=== PATIENT | female | born 1990 | race Caucasian/White ===

== ENCOUNTER 2021-02-26 18:52 | Inpatient (IN) | payer OTHER, SELFPAY ==
[2021-02-26] VITALS (46 sets, daily range): BP systolic 40–166; BP diastolic 25–82; PULSE 66–152; RESP 18–20; TEMP 35.9–36.3; O2SAT 92–100; BMI 33.0
--- NOTE | ~2021-02-26 | US_ITS ---
EXAMINATION: US OB follow up EXAM DATE: 02/26/2021 20:26 INDICATION: No care/ dates,efw,check placenta. 3rd trimester. TECHNIQUE: Pelvic obstetrical transabdominal sonogram was performed by a technologist. There are mu ltiple grayscale and Doppler images available for interpretation. There are no earlier studies of is gestation for comparison. FINDINGS: There is a single fetus identified in vertex presentation with a heart rate of 142 beats pe r minute. The placenta is located in the anterior position. There is no sonographic evidence of retr oplacental hemorrhage identified. The amniotic fluid index is 12.6 centimeters, which is normal. BIOMETRIC DATA: Technologist states that the head circumference measurement was difficult due to low vertex position. Biparietal diameter (BPD): 8.9 cm ----------------> 36 weeks 0 days. Head circumference (HC): 33.8 cm ----------------> 38 weeks 5 days. Abdominal circumference (AC): 36.3 cm ----------> 40 weeks 1 day. Femur length (FL): 7.0 cm --------------------------> 35 weeks 5 days. These measurements are discordant. FL/HC ratio 20.62 The 5th -- 95th percentile range is 20.87-22.67. HC/AC ratio is 0.93 (The 5th -- 95th percentile range is 0.90-1.05. Estimated weight is 3529 g +/- 529 g. This is the 44th percentile when the currently reported clinical gestation age 39 weeks 6 days, clinical estimated date of delivery (STEPHANIE-OPE) 02/27 is used. F etal estimated gestational age based on measurements from this exam is 37 weeks 5 days, with an estim ated date of delivery (STEPHANIE-AUA) 03/14. IMPRESSION: 1. Single fetus in vertex presentation with heart rate 142 beats per minute. 2. Estimated weight of 3529 grams, 44th percentile using the currently reported clinical gesta tion age of 39 weeks 6 days, STEPHANIE(OPE) 02/27. Age by ultrasound 37 weeks 5 days. 3. Difficulty obtaining head measurements, with low FL/AC ratio. Reviewed, dictated and finalized at location A. IMPRESSION: 1. Single fetus in vertex presentation with heart rate 142 beats per minute. 2. Estimated weight of 3529 grams, 44th percentile using the currently r eported clinical gestation age of 39 weeks 6 days, STEPHANIE(OPE) 02/27. Age by ultras ound 37 weeks 5 days. 3. Difficulty obtaining head measurements, with low FL/AC ratio.
[2021-02-26] MEDS: LACTATED RINGERS 1,000 ML 125 ML IV CONT (19:20)
--- NOTE | 2021-02-26 19:36 | PC.NURSE ---
193-Dr.Dalla Guillory called in for update on patient. Informed pt states she has had Dr.Dalla Guillory and for delivery of all of her other children.Pt states she does not know her LMP. Pt last ate at 1530. Order received to call [facility] to verify US from July. Dr. Riana Guillory is on his way in to evaluate pt.
--- NOTE | 2021-02-26 19:38 | PC.NURSE ---
1906-Dr.Dalla Guillory called, informed pt came is stating she is stan and is due 02-27-21 and is a with 3 prior c-sections. Pt states she has not had any pre-blanka care but was told in the ER at [facility] in July when she was there for a kidney infection that she was and due 02-27-21. SVE is 3/100% per Km DAI. Orders received to draw panel labs and get US for dates, EFW, and check placenta.
[2021-02-26 19:44] LABS: Basophils Absolute Auto 0.1 K/mm3 (0.0-0.1); Basophils Percent Auto 0.4 % (0.2-1.2); Eosinophils Absolute Auto 0.3 K/mm3 (0-0.3); Eosinophils Percent Auto 2.4 % (0-4.4); Hemoglobin 12.9 g/dL (12.0-15.0); Immature Granulocyte Absolute 0.11 K/mm3 (0.00-0.031); Immature Granulocyte Percent A 0.8 % (0-0.5); Lymphocytes Absolute Auto 2.11 K/mm3 (0.9-3.2); Lymphocytes Percent Auto 15.1 % (18.3-44.2); Mean Corpuscular HGB Conc 33.9 g/dl (32-36); Mean Corpuscular Hemoglobin 30.1 pg (26-34); Mean Corpuscular Volume 88.8 fl (80-100); Mean Platelet Volume 10.9 fl (7.4-10.4); Monocytes Absolute Auto 0.7 K/mm3 (0.1-0.6); Monocytes Percent Auto 4.7 % (2.6-8.5); Neutrophils Absolute Auto 10.7 K/mm3 (1.3-6.7); Neutrophils Percent Auto 76.6 % (45.5-73.1); Platelet Count Result 283 k/mm3 (150-375); Red Blood Count 4.28 M/mm3 (4.2-5.4); Red Cell Distribution Width 14.4 % (11.5-14.5); White Blood Count 13.9 K/mm3 (4.5-10.0)
--- NOTE | 2021-02-26 19:52 | PM.IMHP ---
H&P: HPI History of Present Illness Date/Time: 02/26/21 19:52 30-year-old 6 para 5 with 3 previous C-sections admitted with no care complaining of regular contractions. Her due date is based on an ultrasound which field sometime she believes in July which she has essentially had no care. She appears to be in active labor Chief Complaint: labor Review of Systems Review of Systems: All systems reviewed & are unremarkable except as noted in HPI and below PMFSH Social History Social History Smoking status: Current some day smoker Substance use: never Gender identity (if verbalized by the patient): Female Spiritual care concerns: No Meds Home Medications and Allergies Allergies Allergy/AdvReac Type Severity Reaction Status Date / Time No Known Allergies Allergy Unverified 11/05/15 12:38 Exam Const: General: no acute distress Eyes: General: appearance normal, both eyes and all related structures Neck: Neck: supple and no JVD Thyroid: thyroid normal Resp: Effort & Inspection: normal respiratory effort Auscultation: clear to auscultation bilaterally Cardio: Rate: regular rate Rhythm: regular rhythm GI: Inspection: non-distended GI Palp: Yes Soft to palpation, No Tenderness to palpation present (GI) and No Guarding due to palpation present (GI) Auscultation: normal bowel sounds : External Female Exam: normal external appearance Speculum Exam - Vagina: normal appearance of the vagina Speculum Exam - Cervix: Cervical os closed ( cervix 3cm by RN exam. FHTs were reassuring. Uterine contractions are re) Skin: General skin exam: no rashes or lesions noted Extrem: General: normal to inspection and no edema Psych: Mental Status: mental status grossly normal Affect: normal affect H&P: Results Labs Labs: Short CBC 02/26/21 Range/Units 19:25 WBC 13.9 H (4.5-10.0) K/mm3 Hgb 12.9 (12.0-15.0) g/dL Hct 38.0 (37.0-47.0) % Plt Count 283 (150-375) k/mm3 Assessment and Plan Additional Plan impression: Apparent term in active labor with 3 previous sections but no care and uncertain dates Plan: Ultrasound is ordered. We are attempting to get results from lids field to confirm dates. Most likely will proceed with section due to what appears to be active labor
--- NOTE | 2021-02-26 20:01 | WPDANESEPP ---
Anes - Eval Pre Procedure Procedure: Repeat c section Date/Time: 02/26/21 20:01 Surgeon: shyla Preop Diagnosis: previous c section Pre Op Diagnosis: CTX Patient Data Age: 30 Gender: F Height: 1.65 m Weight: 90.25 kg Allergies Allergy/AdvReac Type Severity Reaction Status Date / Time No Known Allergies Allergy Unverified 11/05/15 12:38 Laboratory Tests 02/26/21 02/26/21 02/26/21 19:25 19:25 19:25 WBC 13.9 K/mm3 H K/mm3 (4.5-10.0) RBC 4.28 M/mm3 M/mm3 (4.2-5.4) Hgb 12.9 g/dL g/dL (12.0-15.0) Hct 38.0 % % (37.0-47.0) MCV 88.8 fl fl (80-100) MCH 30.1 pg pg (26-34) MCHC 33.9 g/dl g/dl (32-36) RDW 14.4 % % (11.5-14.5) Plt Count 283 k/mm3 k/mm3 (150-375) MPV 10.9 fl H fl (7.4-10.4) Immature Gran % (Auto) 0.8 % H % (0-0.5) Neut % (Auto) 76.6 % H % (45.5-73.1) Lymph % (Auto) 15.1 % L % (18.3-44.2) [place] % (Auto) 4.7 % % (2.6-8.5) Eos % (Auto) 2.4 % % (0-4.4) Baso % (Auto) 0.4 % % (0.2-1.2) Lymph # (Auto) 2.11 K/mm3 K/mm3 (0.9-3.2) [place] # (Auto) 0.7 K/mm3 H K/mm3 (0.1-0.6) Eos # (Auto) 0.3 K/mm3 K/mm3 (0-0.3) Baso # (Auto) 0.1 K/mm3 K/mm3 (0.0-0.1) Abs Immat Gran (auto) 0.11 K/mm3 H K/mm3 (0.00-0.031) Absolute Neuts (auto) 10.7 K/mm3 H K/mm3 (1.3-6.7) Absolute Nucleated RBC 0.0 K/mm3 K/mm3 (0.0-0.012) Nucleated RBC % 0.0 % % (0.0-0.2) RPR Pending Hep Bs Antigen Pending HIV 1&2 Ab/P24 Ag 4thGn Rubella IgG Antibody Pending 02/26/21 19:25 WBC RBC Hgb Hct MCV MCH MCHC RDW Plt Count MPV Immature Gran % (Auto) Neut % (Auto) Lymph % (Auto) [place] % (Auto) Eos % (Auto) Baso % (Auto) Lymph # (Auto) [place] # (Auto) Eos # (Auto) Baso # (Auto) Abs Immat Gran (auto) Absolute Neuts (auto) Absolute Nucleated RBC Nucleated RBC % RPR Hep Bs Antigen HIV 1&2 Ab/P24 Ag 4thGn Pending Rubella IgG Antibody Patient hx anesthesia problems: none Family hx anesthesia problems: none [facility] Past Medical History Medical History (Updated 02/26/21 @ 20:02 by Spring Ren CRNA) Tobacco abuse Social History Social History Smoking status: Current some day smoker Substance use: never Gender identity (if verbalized by the patient): Female Spiritual care concerns: No Exam Day of Procedure 02/26/21 20:01
--- NOTE | 2021-02-26 20:05 | WPDOBADMIT ---
Obstetrics - Admit Note Admission Note: record reviewed. No pertinent additions to the history and/or any subsequent changes in the physical findings that are not consistent with the expected course of the were found. Additions to the history and/or subsequent changes in the physical findings follow. None. reviewed ultrasound from 08/08 20 the gave an EDC of 513 21 making her term. It did note that she had polysubstance abuse at that point with methamphetamines and amphetamines present. Pediatricians will be made aware
[2021-02-26 20:22] LABS: Amphetamine Screen Urine Negative (Negative); Barbiturate Screen Urine Negative (Negative); Benzodiazepines Screen Urine Negative (Negative); Cannabinoid Screen Urine Negative (Negative); Cocaine Screen Urine Negative (Negative); Methadone Screen Urine Negative (Negative); Opiate Screen Urine Negative (Negative); Phencyclidine Screen Urine Negative (Negative)
[2021-02-26 20:32] LABS: HIV 1/2 Ab P24 Ag Result Negative (Negative)
[2021-02-26] MEDS: KETOROLAC 30 MG/ML VIAL (*BKC) IV PUSH (20:50)
--- NOTE | 2021-02-26 20:54 | WPDANESEFPP ---
Anes - Eval Final PreProcedure Day of Procedure 02/26/21 20:54 Patient weight: overweight Heart: regular rate and rhythm Lungs: clear to auscultation Airway: Mallampati scale class II Neurological: alert and oriented ASA classification: III Emergent: no Anesthetic plan: proceed Anesthesia type and monitoring: regional spinal and standard monitoring Other findings: minimal care Informed Consent: The patient's anesthetic plan and its attendant risks and benefits were discussed with the patient/family by FENG Ren.. Questions were solicited and answers provided to the satisfaction of the patient by me in the OR.
[2021-02-26 21:04] LABS: Hepatitis B Surface Antigen Negative (Negative)
--- NOTE | 2021-02-26 21:12 | P.OP_ITS ---
Procedure Note - Detailed Date of procedure: 02/26/21 Pre-op diagnosis: CTX Surgeon: Valdemar Max MD postop diagnosis: Term in active labor with previous section but no care Procedure: Repeat low-transverse section Anesthesia: l spinal Tube EBL 325 Findings: Female infant 8 lb 0 oz Apgars of 8 and 9 at 1 and 5 minutes respectively. Lower uterine segment was essentially see-through. Normal- appearing ovaries and tubes were noted Complications: None Description of procedure. : The patient was admitted in active labor through the ER. She had 3 previous sections and investigative work noted 1st trimester ultrasound giving her due date of 02/27 21 putting her at term. Contractions were regular. After obtaining informed consent she was taken back prepped draped placed in the supine position. Under excellent spinal anesthetic the abdomen was entered in Pfannenstiel fashion progressive layers to fascia. Fascia was entered none upward outward fashion. The parietal peritoneum elevated Cortney clamps and the probe and was brought superiorly and inferiorly dome of the bladder. A bladder blade was placed and a bladder flap formed. The lower uterine segment was noted to be very thin and see-through. A low- transverse incision made the head delivered in the JOSH position. Anterior posterior shoulder delivered spontaneously. Cord clamped x2 and cut infant passed off the table given Apgars of 8 [id number]. Cord blood was d rawn and placenta delivered intact manually. The uterus was inspected and after assuring no debris remained in the uterus uterus was closed with continuous running locking 0 Vicryl from lateral edge to lateral edge. This was followed by 2nd imbricating running locking 0 Vicryl from lateral edge to lateral edge. Ovaries and tubes appeared within normal limits and the incision appeared intact on the uterus. Uterus returned the abdomen irrigation was undertaken until clear and the uterine segment was noted to be hemostatic. The laps removed and accounted for in the fascia closed with continuous running 0 Vicryl from lateral edge to midline bilaterally. Irrigation subcutaneous layer and the skin closed with 4 Monocryl and glue blood loss by Kube EBL was 325cc. All sponge, needle, instrument counts were correct. There were no immediate complications noted
[2021-02-26] MEDS: OXYTOCIN 30 UNITS/NS 500 ML 30 UNITS/500 ML BAG 125 UNITS IV CONT (23:38)
[2021-02-27] VITALS (7 sets, daily range): BP systolic 104–127; BP diastolic 37–75; PULSE 76–85; RESP 14–18; TEMP 36.2–37.2; O2SAT 93–100
--- NOTE | 2021-02-27 00:05 | OBPPTRN ---
Patient transferred to post room #291 via stretcher with infant in crib. Support person present. Oriented to unit, room, information board, rooming in, admission packet and security measures. Patient verbalizes understanding.
[2021-02-27] MEDS: diphenhydrAMINE HCl INJ 50 MG/ML VIAL 25 MG IV PUSH (00:38)
[2021-02-27 06:40] LABS: Basophils Percent Auto 0.2 % (0.2-1.2); Eosinophils Absolute Auto 0.2 K/mm3 (0-0.3); Eosinophils Percent Auto 1.8 % (0-4.4); Hematocrit 33.4 % (37.0-47.0); Hemoglobin 11.1 g/dL (12.0-15.0); Immature Granulocyte Absolute 0.07 K/mm3 (0.00-0.031); Immature Granulocyte Percent A 0.5 % (0-0.5); Lymphocytes Absolute Auto 1.68 K/mm3 (0.9-3.2); Lymphocytes Percent Auto 12.6 % (18.3-44.2); Mean Corpuscular HGB Conc 33.2 g/dl (32-36); Mean Corpuscular Volume 90.3 fl (80-100); Mean Platelet Volume 10.3 fl (7.4-10.4); Monocytes Absolute Auto 0.5 K/mm3 (0.1-0.6); Neutrophils Absolute Auto 10.7 K/mm3 (1.3-6.7); Neutrophils Percent Auto 80.9 % (45.5-73.1); Platelet Count Result 188 k/mm3 (150-375); Red Cell Distribution Width 14.3 % (11.5-14.5); White Blood Count 13.3 K/mm3 (4.5-10.0)
--- NOTE | 2021-02-27 07:45 | PM.OBPNVD ---
OB - PN: Subj Subjective Date/time seen: 02/27/21 07:45 Patient comments: no complaints and pain well controlled baby status: doing well OB - PN: Obj Data Labs CBC & Chem 7: 02/27/21 06:34 Labs: Laboratory Results - last 24 hr 02/26/21 02/26/21 02/26/21 19:25 19:25 19:25 WBC 13.9 H RBC 4.28 Hgb 12.9 Hct 38.0 MCV 88.8 MCH 30.1 MCHC 33.9 RDW 14.4 Plt Count 283 MPV 10.9 H Immature Gran % (Auto) 0.8 H Neut % (Auto) 76.6 H Lymph % (Auto) 15.1 L [place] % (Auto) 4.7 Eos % (Auto) 2.4 Baso % (Auto) 0.4 Lymph # (Auto) 2.11 [place] # (Auto) 0.7 H Eos # (Auto) 0.3 Baso # (Auto) 0.1 Abs Immat Gran (auto) 0.11 H Absolute Neuts (auto) 10.7 H Absolute Nucleated RBC 0.0 Nucleated RBC % 0.0 Urine Opiates Screen Urine Methadone Screen Ur Barbiturates Screen Ur Phencyclidine Scrn Ur Amphetamine Screen U Benzodiazepines Scrn Urine Cocaine Screen U Cannabinoids Screen Hep Bs Antigen Negative HIV 1&2 Ab/P24 Ag 4thGn Negative Rubella IgG Antibody 57.0 Blood Type Antibody Screen 02/26/21 02/26/21 02/27/21 19:26 19:58 06:34 WBC 13.3 H RBC 3.70 L Hgb 11.1 L Hct 33.4 L MCV 90.3 MCH 30.0 MCHC 33.2 RDW 14.3 Plt Count 188 MPV 10.3 Immature Gran % (Auto) 0.5 Neut % (Auto) 80.9 H Lymph % (Auto) 12.6 L [place] % (Auto) 4.0 Eos % (Auto) 1.8 Baso % (Auto) 0.2 Lymph # (Auto) 1.68 [place] # (Auto) 0.5 Eos # (Auto) 0.2 Baso # (Auto) 0.0 Abs Immat Gran (auto) 0.07 H Absolute Neuts (auto) 10.7 H Absolute Nucleated RBC 0.0 Nucleated RBC % 0.0 Urine Opiates Screen Negative Urine Methadone Screen Negative Ur Barbiturates Screen Negative Ur Phencyclidine Scrn Negative Ur Amphetamine Screen Negative U Benzodiazepines Scrn Negative Urine Cocaine Screen Negative U Cannabinoids Screen Negative Hep Bs Antigen HIV 1&2 Ab/P24 Ag 4thGn Rubella IgG Antibody Blood Type O Positive Antibody Screen Negative Imaging Radiologist's impression: Impressions Obstetrics Ultrasound 02/26/21 20:29 IMPRESSION: 1. Single fetus in vertex presentation with heart rate 142 beats per minute. 2. Estimated weight of 3529 grams, 44th percentile using the currently reported clinical gestation age of 39 weeks 6 days, STEPHANIE(OPE) 02/27. Age by ultrasound 37 weeks 5 days. 3. Difficulty obtaining head measurements, with low FL/AC ratio. OB - PN A/P Plan day: 1 Plan: routine care Time Spent With Patient Time: Total time spent is greater than 50% in coordination of care (as documented) at patient's floor/unit and/or counseling patient: Time with patient: less than 15 minutes Review of Systems Review of Systems: All systems reviewed & are unremarkable except as noted in HPI and below Exam Const: General: no acute distress Eyes: General: appearance normal, both eyes and all related structures Neck: Neck: supple and no JVD Thyroid: thyroid normal Resp: Effort & Inspection: normal respiratory effort Auscultation: clear to auscultation bilaterally Cardio: Rate: regular rate Rhythm: regular rhythm GI: Inspection: normal to inspection and incision (cdi) Percussion: Yes normal to percussion : General: Yes bladder normal to palpation External Female Exam: normal external appearance Speculum Exam - Vagina: normal vaginal discharge and No vaginal bleeding Speculum Exam - Cervix: nontender Bimanual exam- vagina & uterus: bladder normal to palpation and No Cervical tenderness present OB/external & speculum: No vaginal bleeding Skin: General skin exam: no rashes or lesions noted Extrem: General: normal to inspection and no edema Psych: Mental Status: mental status grossly normal Affect: normal affect
[2021-02-27] MEDS: MULTIVIT/MIN/PREN/FOL AC/IRON TABLET 1 TAB PO (08:27)
[2021-02-27] MEDS: DOCUSATE SODIUM 100 MG CAPSULE PO ×2 (08:27→16:19)
[2021-02-27] MEDS: HYDROcodone/acetaminophen (*CRX) 5-325 MG TABLET 1 TAB PO ×3 (08:27→16:19)
[2021-02-27] MEDS: IBUPROFEN 600 MG TABLET PO ×3 (08:28→20:40)
[2021-02-27 10:21] LABS: Rapid Plasma Reagin Non-Reactive (NonReactive)
--- NOTE | 2021-02-27 10:52 | WPDANLDPN2 ---
Anes-Prog Note L&D Date/Time: 02/27/21 10:52 Comfortable throughout: section Neuraxial method: spinal Epidural/Spinal procedure site: clean & non-tender Neuro status: Neuro function grossly intact. Cardiovascular status: normal Respiratory status: normal Airway patency: baseline Mental status: baseline Post-Op hydration status: normal Vital Signs: Last Vital Signs Temp 37.0 C 02/27/21 04:12 Pulse 82 02/27/21 04:12 Resp 16 02/27/21 04:12 BP 106/55 L 02/27/21 04:12 Pulse Ox 99 02/26/21 23:23 Pain score (VAS): 10/27 I/O: Intake & Output 02/26/21 02/27/21 02/27/21 23:59 07:59 15:59 Intake Total 500 Output Total 533 350 Balance -533 150 Post-procedural complaints: none Patient feedback: Patient satisfied with anesthetic care.
--- NOTE | 2021-02-27 10:53 | WPDANLDNPN2 ---
Anes-Prog Note L&D-Neuraxial Date/Time: 02/27/21 10:53 Neuraxial medications: intrathecal PF morphine Opiod-related complaints: none Patient feedback: Patient satisfied with post-operative pain management.
[2021-02-27] MEDS: SIMETHICONE 80 MG TAB.CHEW PO ×2 (14:43→20:38)
--- NOTE | 2021-02-27 14:50 | PCCCNOTE ---
Addendum entered by TRUNG Mancia 03/04/21 14:44: Received notification that pt. and baby girl missed their follow up appointment scheduled for 03/03/21 at 10am. Call to [facility] to inform and added to ID information [id number]. Received call from Yanet intake DCFS worker with [facility] @ [phone] who reports she was assigned case to offer in home services with pt. and SUSIE Hernandez. Per Yanet she has made attempts to contact pt. however has not received a return call. Per Yanet she will do a home visit this afternoon. Faxed information including negative meconium screening for baby and mother to [phone]. Addendum entered by TRUNG Mancia 02/28/21 10:08: Received notification that pt. will be contacted by [facility] to see if she is interested in home services. Spoke with pt. and SUSIE Hernandez who stated they were agreeable. Original Note: Care Coordination Consult: Mother Kathryn Barry, gave to baby girl Jhonny on 02/26/2021. This is Kathryn's 6th child. Mother did not have any care for this child. Mother has given at [facility] 4 times previously, and has never completed any kind of care for her children. It was reported that mother tested positive for methamphetamines during a ER visit in July of 2020. Kathryn was tested for substances upon admission to the hospital, she was negative for all substances. Baby meconium and urine is pending at this time. Mother reports having a very difficult last year including multiple situations in which she and her 5 children were kicked out of housing situations. Mother was staying with her father Otoniel. She does not have reliable transportation and had lost her job at the beginning of the Covid-19 pandemic. Mother reports she has a pack n play at home that she will use for the baby. Father David reports he is in process of buying a car seat, diapers, and bottles for the baby. Because of all this Kathryn did report she was going through periods of depression last year. Kathryn reports she has used WIC services in the past and will use for baby at discharge. Pt. also has [facility] services in place. resources provided. also provided [facility] resources including housing, food box/meals, Head start information for her other children, employment and training assistance, family/individual counseling, mental health resources, WIC information, and transportation. Did submit online DCFS report reference number [id number]. Pt. reports she has never had any DCFS involvement, informed pt. that DCFS may offer home services. Will follow.
--- NOTE | 2021-02-27 15:58 | PC.NURSE ---
1220 Pt's IV saline locked; 950cc infused
[2021-02-27] MEDS: HYDROcodone/acetaminophen (*CRX) 10-325 MG TABLET 1 TAB PO (20:38)
[2021-02-28] MEDS: IBUPROFEN 600 MG TABLET PO ×3 (06:52→21:09)
[2021-02-28] MEDS: DOCUSATE SODIUM 100 MG CAPSULE PO (06:52)
[2021-02-28] MEDS: SIMETHICONE 80 MG TAB.CHEW PO ×4 (06:52→21:07)
[2021-02-28] MEDS: HYDROcodone/acetaminophen (*CRX) 10-325 MG TABLET 1 TAB PO ×2 (06:53→11:10)
[2021-02-28 07:30] VITALS: PULSE 86; RESP 16; O2SAT 97
[2021-02-28 07:35] VITALS: BP 98/62; PULSE 86; RESP 16; TEMP 36.6; O2SAT 97
--- NOTE | 2021-02-28 08:52 | PM.OBPNVD ---
OB - PN: Subj Subjective Date/time seen: 02/28/21 08:52 Patient comments: no complaints and pain well controlled baby status: doing well OB - PN: Obj Data Labs CBC & Chem 7: 02/27/21 06:34 Labs: Laboratory Results - last 24 hr 02/26/21 19:25 RPR Non-reactive OB - PN A/P Plan day: 2 Plan: routine care Time Spent With Patient Time: Total time spent is greater than 50% in coordination of care (as documented) at patient's floor/unit and/or counseling patient: Time with patient: less than 15 minutes Review of Systems Review of Systems: All systems reviewed & are unremarkable except as noted in HPI and below Exam Const: General: no acute distress Eyes: General: appearance normal, both eyes and all related structures Neck: Neck: supple and no JVD Thyroid: thyroid normal Resp: Effort & Inspection: normal respiratory effort Auscultation: clear to auscultation bilaterally Cardio: Rate: regular rate Rhythm: regular rhythm GI: Inspection: non-distended GI Palp: Yes Soft to palpation, No Tenderness to palpation present (GI) and No Guarding due to palpation present (GI) Auscultation: normal bowel sounds : General: Yes bladder normal to palpation External Female Exam: normal external appearance Speculum Exam - Vagina: normal vaginal discharge and No vaginal bleeding Speculum Exam - Cervix: nontender Bimanual exam- vagina & uterus: bladder normal to palpation and No Cervical tenderness present OB/external & speculum: No vaginal bleeding Skin: General skin exam: no rashes or lesions noted Extrem: General: normal to inspection and no edema Psych: Mental Status: mental status grossly normal Affect: normal affect
[2021-02-28] MEDS: HYDROcodone/acetaminophen (*CRX) 5-325 MG TABLET 1 TAB PO ×2 (15:08→21:09)
[2021-02-28 21:10] VITALS: BP 129/86; PULSE 82; RESP 14; TEMP 36.1; O2SAT 100
[2021-03-01] MEDS: HYDROcodone/acetaminophen (*CRX) 5-325 MG TABLET 1 TAB PO ×2 (05:08→08:53)
[2021-03-01] MEDS: IBUPROFEN 600 MG TABLET PO (05:08)
[2021-03-01] MEDS: SIMETHICONE 80 MG TAB.CHEW PO (05:10)
--- NOTE | 2021-03-01 07:44 | PM.OBDSVD ---
DS: Admitting Diagnosis Admitting Diagnosis Admitting Diagnosis: repeat section OB - DS: Summary OB Procedures : None OB Procedures Intrapartum: OB Procedures: : None Peripartum Data Delivery Method: Section Procedures: Procedures Operation Date: 02/26/21 20:15 Actual Procedure Side Surgeon p Section Valdemar Max MD complications: none Status at Discharge Functional status at discharge: independent ambulation Overall status at discharge: patient is progressing back to baseline Time Spent with Patient Time attestation: Total time spent providing and/or coordinating discharge services: Time spent: Less than 30 minutes Exam Const: General: comfortable and no acute distress Resp: Effort & Inspection: normal respiratory effort Auscultation: clear to auscultation bilaterally Cardio: Rate: regular rate GI: Inspection: non-distended GI Palp: Yes Soft to palpation, No Firmness to palpation present (GI), Yes Tenderness to palpation present (GI) (mild tenderness over incision ) and No Guarding due to palpation present (GI) Auscultation: normal bowel sounds Psych: Appearance: grossly normal Mental Status: mental status grossly normal Discharge Plan Discharge Attending physician on discharge: Valdemar Max Discharging Clinician: Valdemar Max Patient Disposition: Home, Self-Care Activity: may shower, no straining, may drive after 2 weeks and pelvic rest Diet: heart healthy Wound Care Instructions: follow printed instructions Patient Instructions: Antibiotic Form, How to Stop Smoking (DC) Stand Alone Forms: General Discharge Information Follow-up/Referrals: Valdemar Max MD [Physician] - Discharge Medications: New hydrocodone-acetaminophen 5-325 mg tablet 1 tablet PO Q4H PRN (Reason: pain) Qty: 30 RF: 0 Date of admission: 02/26/21 18:52 Primary Care Provider: Maddie Atkinson Admitting Provider: Valdemar Max Attending physician on admission: Valdemar Max Condition: Stable
[2021-03-01 08:30] VITALS: BP 117/74; PULSE 99; RESP 20; TEMP 36.9; O2SAT 98
[2021-03-01] MEDS: DOCUSATE SODIUM 100 MG CAPSULE PO (08:53)
--- NOTE | 2021-03-01 10:06 | PC.NURSE ---
Patient instructed on viewing the discharge video Mother & Baby Care, The First Two Weeks . Patient was given the opportunity and encouraged to ask questions. Patient verbalized understanding of information shared and has been given the mother/baby guide for home reference.
== END 2021-03-01 10:55 | disposition home or self-care (01) | DRG 540 ==
LOC: ANHLDR 19:27 → ANHOB2 02-27 14:24 → ANHLDR 03-04 08:48 → ANHOB2 03-04 08:48
PROVIDERS: Admitting Provider Obstetrics & Gynecology; PCP Hospitalist; Visit Provider Student in an Organized Health Care Education/Training Program
PROC: 10D00Z1 Extraction of Products of Conception, Low, Open Approach (ICD-10-PCS; CPT 59514; principal; 2021-02-26 20:15)
DX: O34.211 Maternal care for low transverse scar from previous cesarean delivery (principal); O99.334 Smoking (tobacco) complicating childbirth; F17.210 Nicotine dependence, cigarettes, uncomplicated; Z3A.39 39 weeks gestation of pregnancy; Z37.0 Single live birth
CPT/HCPCS: 36415; 76816; 80307; 85025; 86592; 86703; 86762; 86850; 86900; 86901; 87340; A9270; G0432; J0131; J1200; J1885; J2274; J2405; J2590; J7120

== ENCOUNTER 2022-03-17 13:23 | Inpatient (IN) | payer OTHER, SELFPAY ==
[2022-03-17] VITALS (42 sets, daily range): BP systolic 84–129; BP diastolic 28–89; PULSE 65–204; RESP 14–18; TEMP 36.1–36.8; O2SAT 82–100; BMI 35.0
--- NOTE | 2022-03-17 13:58 | LDADM ---
This patient, Kathryn Barry, was admitted to Labor/Delivery/Recovery 120 on 03/17/22 at 13:23. Plans for labor, pain management and were discussed with patient. Patient/family oriented to hospital policies and general routines including ID bracelet, bed and alarms, visiting hours, pain management, procedures, bathroom and other care routines, personal items, smoking policy, room service/diet and guest tray routines, infant security routines, and visiting hours. Patient/Family are encouraged to report perceived risks to care and to ask questions if they do not understand what they are told or what they should do. See OBIX for further documentation.
--- NOTE | 2022-03-17 14:07 | PM.IMHP ---
H&P: HPI History of Present Illness Date/Time: 03/17/22 14:07 Chief Complaint: intrauterine at term prior x4 insufficient care Narrative: 31 yo at 39w who presents for repeat . Pt is complicated by insufficient care, methamphetamine use, tobacco use, prior x4, depressions. Pt also desires permanent sterilization with bilateral tubal ligation at time of . Review of Systems Cardiovascular: Cardiovascular: Denies chest pain, Denies leg edema, Denies palpitations, Denies dyspnea and Denies dyspnea on exertion Respiratory: Respiratory: Denies cough, Denies dyspnea and Denies dyspnea on exertion Gastrointestinal: Gastrointestinal: Denies abdominal pain, Denies constipation, Denies diarrhea, Denies nausea and Denies vomiting Genitourinary: Genitourinary: Denies hematuria, Denies urinary frequency, Denies dysuria, Denies pelvic pain, Denies urinary incontinence and Denies vaginal discharge Neurologic: Reports system reviewed and no additional complaints, except as documented Psychiatric: Psychiatric: Reports no additional psychiatric complaints Endocrine: Endocrine: Denies palpitations PMFSH Past Medical History Medical History (Updated 03/17/22 @ 14:14 by Fransisco Sim MD) Tobacco abuse Social History Social History Smoking status: Current some day smoker Substance use: never Gender identity (if verbalized by the patient): Female Spiritual care concerns: No Meds Home Medications and Allergies Home Medications Medication Instructions Recorded Confirmed Type sertraline 50 mg tablet (Zoloft) 50 mg PO DAILY 03/17/22 03/17/22 History Allergies Allergy/AdvReac Type Severity Reaction Status Date / Time penicillin G Allergy Unknown Verified 03/17/22 13:48 Vital Signs Vital Signs - 24 hr 03/17/22 13:55 Pulse Rate 106 H Blood Pressure 129/83 Exam Const: General: no acute distress Eyes: EOM: EOMs intact bilaterally Neck: Neck: supple Thyroid: thyroid normal Chest: Breast/axilla inspection: normal inspection of the breasts Breast/axilla palpation: normal palpation of the breasts, normal palpation of the axillae and no axillary lymphadenopathy Resp: Effort & Inspection: normal respiratory effort Auscultation: clear to auscultation bilaterally Cardio: Rate: regular rate Rhythm: regular rhythm GI: Inspection: non-distended and other (Gravid) GI Palp: Yes Soft to palpation, No Tenderness to palpation present (GI) and No Guarding due to palpation present (GI) Auscultation: normal bowel sounds : Speculum Exam - Vagina: No vaginal bleeding OB/external & speculum: external exam normal; No vaginal bleeding Skin: General skin exam: normal color and no rashes or lesions noted Neuro: Cognition (Neuro): normal cognition Speech: normal speech Extrem: General: normal to inspection Psych: Mental Status: mental status grossly normal Affect: normal affect Assessment and Plan Assessment and plan (1) Supervision of high risk , unspecified, third trimester: Code(s): O09.93 - Supervision of high risk , unspecified, third trimester Status: Acute Assessment and Plan: 31 yo at 39w late to care, established at 25w pt missed several appointments labs wnl Rh+ GBS + plan for repeat (2) History of section complicating : Code(s): O34.219 - Maternal care for unspecified type scar from previous delivery Status: Acute Assessment and Plan: prior low transverse x4 repeat at 39w (3) Substance abuse affecting in third trimester, antepartum: Code(s): O99.323 - Drug use complicating , third trimester Status: Acute Assessment and Plan: Pt reports methamphetamine use reports last use was
[2022-03-17 14:37] LABS: Basophils Percent Auto 0.3 % (0.2-1.2); Eosinophils Absolute Auto 0.2 K/mm3 (0-0.3); Eosinophils Percent Auto 1.7 % (0-4.4); Hematocrit 35.9 % (37.0-47.0); Hemoglobin 12.1 g/dL (12.0-15.0); Immature Granulocyte Absolute 0.11 K/mm3 (0.00-0.031); Immature Granulocyte Percent A 0.9 % (0-0.5); Lymphocytes Absolute Auto 1.87 K/mm3 (0.9-3.2); Lymphocytes Percent Auto 14.9 % (18.3-44.2); Mean Corpuscular HGB Conc 33.7 g/dl (32-36); Mean Corpuscular Hemoglobin 30.6 pg (26-34); Mean Corpuscular Volume 90.9 fl (80-100); Mean Platelet Volume 11.8 fl (7.4-10.4); Monocytes Absolute Auto 0.5 K/mm3 (0.1-0.6); Monocytes Percent Auto 3.8 % (2.6-8.5); Neutrophils Absolute Auto 9.8 K/mm3 (1.3-6.7); Neutrophils Percent Auto 78.4 % (45.5-73.1); Platelet Count Result 183 k/mm3 (150-375); Red Blood Count 3.95 M/mm3 (4.2-5.4); Red Cell Distribution Width 14.4 % (11.5-14.5); White Blood Count 12.5 K/mm3 (4.5-10.0)
[2022-03-17] MEDS: LACTATED RINGERS 1,000 ML 125 ML IV CONT (14:43)
--- NOTE | 2022-03-17 14:52 | WPDANESEPPF ---
Anes - Initial Pre Proc Eval Procedure: Operation Date: 03/17/22 13:30 Proposed Procedures p Section with Tubal Ligation - Fransisco Sim MD Date/Time: 03/17/22 14:52 Surgeon: Fransisco Sim MD Pre Op Diagnosis: Repeat C Section, Desire Sterilization Patient Data Age: 31 Gender: F Height: 1.65 m Weight: 95.5 kg Last Vital Signs Pulse 106 H 03/17/22 13:55 BP 129/83 03/17/22 13:55 O2 Del Method Room Air 03/17/22 13:57 Allergies Allergy/AdvReac Type Severity Reaction Status Date / Time penicillin G Allergy Unknown Verified 03/17/22 13:48 Home Medications Medication Instructions Recorded Confirmed Type sertraline 50 mg tablet (Zoloft) 50 mg PO DAILY 03/17/22 03/17/22 History Laboratory Tests 03/17/22 03/17/22 14:23 14:23 WBC 12.5 K/mm3 H K/mm3 (4.5-10.0) RBC 3.95 M/mm3 L M/mm3 (4.2-5.4) Hgb 12.1 g/dL g/dL (12.0-15.0) Hct 35.9 % L % (37.0-47.0) MCV 90.9 fl fl (80-100) MCH 30.6 pg pg (26-34) MCHC 33.7 g/dl g/dl (32-36) RDW 14.4 % % (11.5-14.5) Plt Count 183 k/mm3 k/mm3 (150-375) MPV 11.8 fl H fl (7.4-10.4) Immature Gran % (Auto) 0.9 % H % (0-0.5) Neut % (Auto) 78.4 % H % (45.5-73.1) Lymph % (Auto) 14.9 % L % (18.3-44.2) Concho % (Auto) 3.8 % % (2.6-8.5) Eos % (Auto) 1.7 % % (0-4.4) Baso % (Auto) 0.3 % % (0.2-1.2) Lymph # (Auto) 1.87 K/mm3 K/mm3 (0.9-3.2) Concho # (Auto) 0.5 K/mm3 K/mm3 (0.1-0.6) Eos # (Auto) 0.2 K/mm3 K/mm3 (0-0.3) Baso # (Auto) 0.0 K/mm3 K/mm3 (0.0-0.1) Abs Immat Gran (auto) 0.11 K/mm3 H K/mm3 (0.00-0.031) Absolute Neuts (auto) 9.8 K/mm3 H K/mm3 (1.3-6.7) Absolute Nucleated RBC 0.0 K/mm3 K/mm3 (0.0-0.012) Nucleated RBC % 0.0 % % (0.0-0.2) RPR Pending Patient hx anesthesia problems: none Family hx anesthesia problems: none Results Review: All pre-operative results and documents have been reviewed as part of the pre-operative evaluation. [facility] Past Medical History Medical History (Updated 03/17/22 @ 14:52 by Valdemar Chavez MD) Methamphetamine abuse Tobacco abuse Surgical History Surgical History (Updated 03/17/22 @ 14:52 by Valdemar Chavez MD) History of section Family History Family History (Updated 03/17/22 @ 14:32 by Odalys Latham RN) Grandparent Diabetes mellitus Hypertension Father Diabetes mellitus Hypertension Social History Social History Smoking status: Current every day smoker Tobacco type: cigarettes Second hand tobacco smoke exposure: Yes Substance use: former Gender identity (if verbalized by the patient): Female Spiritual care concerns: No Anes - Eval Final PreProcedure Day of Procedure 03/17/22 14:52 Patient weight: obese Heart: regular rate and rhythm Airway: Mallampati scale class II Neurological: alert and oriented Last oral intake: 4 hours ASA classification: III Emergent: no Anesthetic plan: proceed Anesthesia type and monitoring: regional spinal and standard monitoring Results Review: All pre-operative results and documents have been reviewed as part of the pre-operative evaluation. Informed Consent: The patient's anesthetic plan and its attendant risks and benefits were discussed with the patient/family/POA. Questions were solicited and answers provided to the satisfaction of the patient/family/POA.
--- NOTE | 2022-03-17 16:22 | WPDHPUPDATE1 ---
History and Physical Update Update Date/Time: 03/17/22 16:22 History and Physical has been reviewed, including an updated exam of the patient. There are NO changes in the patient's condition. Risks, benefits, and alternatives have been discussed and questions answered. Patient agrees to proceed with procedure.
[2022-03-17] MEDS: ceFAZolin 2 GM/D5W 50 ML 2 GM/50 ML BAG IVPB (16:25)
--- NOTE | 2022-03-17 17:30 | W.PM.PROC2 ---
Procedure Note - Detailed Date of Procedure 03/17/22 Pre-op Diagnosis Repeat C Section, Desire Sterilization Post-op Diagnosis Same Procedure Performed low transverse section bilateral salpingectomy Surgeon Fransisco Sim MD Anesthesia Spinal and Epidural Indications prior x4 desires permanent sterilization Findings Dense adhesions between the peritoneum and rectus muscles Description of Procedure The patient was taken to the operating room. A combined spinal epidural anesthesic was administered and found to be adequate at a t-10 level. The patient was placed in a supine position with a slight left lateral tilt. A dawkins catheter was placed with return of clear urine. A Bovie grounding pad was placed. Surgical prep was performed and surgical drapes were placed. A surgical time out was performed. A Pfannenstiel skin incision was then made with the scalpel and carried through to the underlying layer of fascia. The fascia was then incised in the midline and the incision was extended laterally with the Hou scissors. The superior aspect of the fascia was then grasped with the Foster clamps, elevated, and the underlying rectus muscles dissected off bluntly and sharply. Attention was then turned to the inferior aspect of this incision which, in a similar fashion, was grasped, tented up with the Foster clamps, and the rectus muscles dissected off both bluntly and sharply. The rectus muscles were then in the midline. The peritoneum was densely adherent to the rectus muscles. The peritoneal incision was then extended superiorly and inferiorly with good visualization of the bladder. The vesico-uterine serosa was identified and dissected to create a bladder flap. The bladder blade was reinserted. The uterus was inspected for rotation. A low-transverse uterine incision was made sharply with the scalpel and entry was made into the uterine cavity. An amniotomy was made and copious amounts of clear fluid were noted on return. The uterine incision was extended laterally bluntly. The bladder blade was removed and the fetus was delivered atraumatically. The nose and mouth were suctioned with a bulb syringe. The umbilical cord was clamped twice and cut. The was handed off to the waiting staff. A second segment of umbilical cord was clamped and cut for cord blood gasses. Cord blood was collected for determination of the blood type and for direct Lynch. The placenta was delivered spontaneously without difficulty. The placenta appeared grossly normal and complete. The uterus was exteriorized and cleared of all clots and debris. The uterine incision was repaired using 0-monocryl suture in a running fashion. The uterine closure was inspected for hemostasis. The posterior aspect of the uterus and the broad ligaments were inspected and the posterior cul-de-sac cleared of fluid and blood clots. The uterine closure was again inspected and found to be hemostatic. Attention was then turned to the fallopian tubes. The right fallopian tube was identified and followed out to the fimbriae. The fallopian tube was then transected along the inferior mesosalpinx using the Ligasure device. This transection was continued toward the uterus and the fallopian tube was completely transected at the uterine body. The same procedure was repeated on the left fallopian tube. Surgical sites were examined and good hemostasis was noted. The uterus was returned to the abdominal cavity. The pericolic gutters were inspected and were cleared of all blood clots and debris. The uterine closure was then re inspected to ensure hemostasis as were all subfascial tissues. The peritoneum was closed using 3-0 vicryl in a running fashion. The fascia was reapproximated with 0-vicryl in a running fashion. The subcutaneous tissue was irrigated and hemostasis achieved with electrocautery. It was reapproximated with 3-0 vicryl in a running fashion. The skin was closed with 4-0 vicryl i
[2022-03-17 18:06] LABS: Amphetamine Screen Urine Negative (Negative); Barbiturate Screen Urine Negative (Negative); Benzodiazepines Screen Urine Negative (Negative); Cannabinoid Screen Urine Negative (Negative); Cocaine Screen Urine Negative (Negative); Methadone Screen Urine Negative (Negative); Opiate Screen Urine Negative (Negative); Phencyclidine Screen Urine Negative (Negative)
[2022-03-17] MEDS: OXYTOCIN 30 UNITS/NS 500 ML 30 UNITS/500 ML BAG 125 UNITS IV CONT (19:36)
--- NOTE | 2022-03-17 19:50 | OBPPTRN ---
Patient transferred to post room #291 via stretcher. Support person present. Oriented to unit, room, information board, rooming in, admission packet and security measures. Patient verbalizes understanding.
[2022-03-18] VITALS (7 sets, daily range): BP systolic 108–116; BP diastolic 60–73; PULSE 82–100; RESP 16–18; TEMP 36.6–36.8; O2SAT 97–99
[2022-03-18] MEDS: KETOROLAC 30 MG/ML VIAL (*BKC) IV PUSH (00:03)
[2022-03-18] MEDS: SIMETHICONE 80 MG TAB.CHEW PO ×6 (00:04→22:49)
[2022-03-18] MEDS: DEXTROSE 5%/0.45% SOD CHL 1,000 ML 125 ML IV CONT (00:21)
[2022-03-18] MEDS: HYDROcodone/acetaminophen (*CRX) 5-325 MG TABLET 1 TAB PO ×6 (04:42→22:49)
[2022-03-18 04:55] LABS: Basophils Percent Auto 0.3 % (0.2-1.2); Eosinophils Absolute Auto 0.2 K/mm3 (0-0.3); Eosinophils Percent Auto 1.4 % (0-4.4); Hematocrit 32.3 % (37.0-47.0); Hemoglobin 10.9 g/dL (12.0-15.0); Immature Granulocyte Absolute 0.06 K/mm3 (0.00-0.031); Immature Granulocyte Percent A 0.5 % (0-0.5); Immature Platelet Fraction Pct 9.3 % (0.9-11.2); Lymphocytes Absolute Auto 1.64 K/mm3 (0.9-3.2); Lymphocytes Percent Auto 14.8 % (18.3-44.2); Mean Corpuscular HGB Conc 33.7 g/dl (32-36); Mean Corpuscular Hemoglobin 30.5 pg (26-34); Mean Corpuscular Volume 90.5 fl (80-100); Mean Platelet Volume 11.5 fl (7.4-10.4); Monocytes Absolute Auto 0.5 K/mm3 (0.1-0.6); Monocytes Percent Auto 4.2 % (2.6-8.5); Neutrophils Absolute Auto 8.7 K/mm3 (1.3-6.7); Neutrophils Percent Auto 78.8 % (45.5-73.1); Platelet Count Result 146 k/mm3 (150-375); Red Blood Count 3.57 M/mm3 (4.2-5.4); Red Cell Distribution Width 14.3 % (11.5-14.5); White Blood Count 11.1 K/mm3 (4.5-10.0)
--- NOTE | 2022-03-18 07:37 | PM.OBPNVD ---
OB - PN: Subj Subjective Date/time seen: 03/18/22 07:37 Patient comments: no complaints, pain well controlled, tolerating diet and flatus present OB - PN: Obj Data Labs CBC & Chem 7: 03/18/22 04:39 Labs: Laboratory Results - last 24 hr 03/17/22 03/17/22 03/17/22 14:23 14:50 17:44 WBC 12.5 H RBC 3.95 L Hgb 12.1 Hct 35.9 L MCV 90.9 MCH 30.6 MCHC 33.7 RDW 14.4 Plt Count 183 MPV 11.8 H Immature Gran % (Auto) 0.9 H Neut % (Auto) 78.4 H Lymph % (Auto) 14.9 L Mcdonald % (Auto) 3.8 Eos % (Auto) 1.7 Baso % (Auto) 0.3 Lymph # (Auto) 1.87 Mcdonald # (Auto) 0.5 Eos # (Auto) 0.2 Baso # (Auto) 0.0 Abs Immat Gran (auto) 0.11 H Absolute Neuts (auto) 9.8 H Absolute Nucleated RBC 0.0 Nucleated RBC % 0.0 % Immature Plt Fraction Urine Opiates Screen Negative Urine Methadone Screen Negative Ur Barbiturates Screen Negative Ur Phencyclidine Scrn Negative Ur Amphetamine Screen Negative U Benzodiazepines Scrn Negative Urine Cocaine Screen Negative U Cannabinoids Screen Negative Blood Type O Positive Antibody Screen Negative 03/18/22 04:39 WBC 11.1 H RBC 3.57 L Hgb 10.9 L Hct 32.3 L MCV 90.5 MCH 30.5 MCHC 33.7 RDW 14.3 Plt Count 146 L MPV 11.5 H Immature Gran % (Auto) 0.5 Neut % (Auto) 78.8 H Lymph % (Auto) 14.8 L Mcdonald % (Auto) 4.2 Eos % (Auto) 1.4 Baso % (Auto) 0.3 Lymph # (Auto) 1.64 Mcdonald # (Auto) 0.5 Eos # (Auto) 0.2 Baso # (Auto) 0.0 Abs Immat Gran (auto) 0.06 H Absolute Neuts (auto) 8.7 H Absolute Nucleated RBC 0.0 Nucleated RBC % 0.0 % Immature Plt Fraction 9.3 Urine Opiates Screen Urine Methadone Screen Ur Barbiturates Screen Ur Phencyclidine Scrn Ur Amphetamine Screen U Benzodiazepines Scrn Urine Cocaine Screen U Cannabinoids Screen Blood Type Antibody Screen OB - PN A/P Plan day: 1 Plan: routine care Comments: patient doing well H/H stable afebrile, VSS incision C/D/I dawkins removed, voiding spontaneously continue routine post op care Time Spent With Patient Time: Total time spent is greater than 50% in coordination of care (as documented) at patient's floor/unit and/or counseling patient: Time with patient: less than 15 minutes Review of Systems Constitutional: Constitutional: Reports no additional constitutional complaints Cardiovascular: Cardiovascular: Reports no additional cardiovascular complaints Respiratory: Respiratory: Reports no additional respiratory complaints Gastrointestinal: Gastrointestinal: Reports no additional gastrointestinal complaints Genitourinary: Genitourinary: Reports no additional female genitourinary complaints Exam Const: General: comfortable and no acute distress Resp: Effort & Inspection: normal respiratory effort Auscultation: clear to auscultation bilaterally Cardio: Rate: regular rate GI: GI Palp: Yes Soft to palpation, Yes Tenderness to palpation present (GI) (around incision ) and No Guarding due to palpation present (GI) Auscultation: normal bowel sounds Other: incision C/D/I, covered with Dermabond Psych: Appearance: grossly normal Mental Status: mental status grossly normal Affect: normal affect
--- NOTE | 2022-03-18 08:54 | WPDANLDPN2 ---
Anes-Prog Note L&D Date/Time: 03/18/22 08:54 Comfortable throughout: section Neuraxial method: spinal Epidural/Spinal procedure site: clean & non-tender Neuro status: Neuro function grossly intact. Cardiovascular status: normal Respiratory status: normal Airway patency: baseline Mental status: baseline Post-Op hydration status: normal Vital Signs: Last Vital Signs Temp 36.7 C 03/18/22 04:30 Pulse 88 03/18/22 04:30 Resp 16 03/18/22 04:30 BP 108/60 03/18/22 04:30 Pulse Ox 98 03/18/22 04:30 O2 Del Method Room Air 03/18/22 04:30 Pain score (VAS): 2/10 I/O: Intake & Output 03/17/22 03/18/22 03/18/22 23:59 07:59 15:59 Intake Total 100 500 Output Total 1110 900 Balance -1010 -400 Post-procedural complaints: none Patient feedback: Patient satisfied with anesthetic care.
--- NOTE | 2022-03-18 08:55 | WPDANLDNPN2 ---
Anes-Prog Note L&D-Neuraxial Date/Time: 03/18/22 08:55 Neuraxial medications: intrathecal PF morphine Opiod-related complaints: none Patient feedback: Patient satisfied with post-operative pain management.
[2022-03-18] MEDS: DOCUSATE SODIUM 100 MG CAPSULE PO ×2 (09:10→15:07)
[2022-03-18] MEDS: IBUPROFEN 600 MG TABLET PO ×3 (09:11→22:49)
[2022-03-18 11:32] LABS: Rapid Plasma Reagin Non-Reactive (NonReactive)
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
--- NOTE | 2022-03-18 19:20 | PC.NURSE ---
Patient's tapering machine operator Annalise called to check if anyone from [facility] had seen patient yet. Informed her that it appears that Tawana from [facility] talked to the patient today.
[2022-03-19] MEDS: SIMETHICONE 80 MG TAB.CHEW PO ×6 (02:03→21:02)
[2022-03-19] MEDS: HYDROcodone/acetaminophen (*CRX) 5-325 MG TABLET 1 TAB PO ×6 (02:03→21:02)
[2022-03-19] MEDS: IBUPROFEN 600 MG TABLET PO ×3 (05:04→17:19)
[2022-03-19] MEDS: DOCUSATE SODIUM 100 MG CAPSULE PO ×2 (07:43→17:18)
[2022-03-19 08:00] VITALS: BP 104/73; PULSE 87; RESP 18; TEMP 37.1
--- NOTE | 2022-03-19 08:10 | PM.OBDSVD ---
DS: Admitting Diagnosis Discharge Date 03/19/22 Admitting Diagnosis intrauterine at term DS: Discharge Diagnosis Discharge Diagnosis (1) Encounter for sterilization: Code(s): Z30.2 - Encounter for sterilization Status: Acute (2) Poor social situation: Code(s): Z65.9 - Problem related to unspecified psychosocial circumstances Status: Acute (3) Tobacco use affecting in third trimester, antepartum: Code(s): O99.333 - Smoking (tobacco) complicating , third trimester Status: Acute (4) Substance abuse affecting in third trimester, antepartum: Code(s): O99.323 - Drug use complicating , third trimester Status: Acute (5) History of section complicating : Code(s): O34.219 - Maternal care for unspecified type scar from previous delivery Status: Acute (6) Supervision of high risk , unspecified, third trimester: Code(s): O09.93 - Supervision of high risk , unspecified, third trimester Status: Acute OB - DS: Summary OB Procedures : None OB Procedures Intrapartum: OB Procedures: : None Peripartum Data Infant Delivery Method: Section Procedures: Procedures Operation Date: 03/17/22 13:30 Actual Procedure Side Surgeon p Section with Tubal Ligation Not Applicable Fransisco Sim MD complications: none Status at Discharge Functional status at discharge: independent ambulation Overall status at discharge: patient is progressing back to baseline Time Spent with Patient Time attestation: Total time spent providing and/or coordinating discharge services: Time spent: Less than 30 minutes Exam Const: General: comfortable and no acute distress Resp: Effort & Inspection: normal respiratory effort Auscultation: clear to auscultation bilaterally Cardio: Rate: regular rate GI: Inspection: non-distended GI Palp: Yes Soft to palpation, No Firmness to palpation present (GI), Yes Tenderness to palpation present (GI) (mild tenderness over incision ) and No Guarding due to palpation present (GI) Auscultation: normal bowel sounds Psych: Appearance: grossly normal Mental Status: mental status grossly normal DS: Data Data Completed and Pending Pending studies at discharge: Pending at discharge 03/17/22 16:54 Surgical [PTH] Routine Surgical [PTH] Routine Surgical [PTH] Routine Labs on day of discharge: Labs from last 24 hours 03/17/22 14:50 RPR Non-reactive Discharge Plan Discharge Discharging Clinician: Fransisco Sim Patient Disposition: Home, Self-Care Activity: as tolerated and pelvic rest Diet: regular Patient Instructions: Antibiotic Form, (DC) Stand Alone Forms: General Discharge Information Follow-up/Referrals: Fransisco Sim MD [Physician] - Discharge Medications: New hydrocodone-acetaminophen 5-325 mg tablet 1 tablet PO Q8H PRN (Reason: pain) Qty: 20 0RF ibuprofen 600 mg Tablet 600 mg PO Q6H PRN (Reason: Cramping) Qty: 30 0RF Continued sertraline [Zoloft] 50 mg tablet 50 mg PO DAILY Date of admission: 03/17/22 13:23 Primary Care Provider: UNKNOWN,DOCTOR Admitting Provider: Fransisco Sim Attending physician on admission: Fransisco Sim Condition: Stable
[2022-03-19 19:35] VITALS: BP 122/74; PULSE 95; RESP 16; TEMP 36.3; O2SAT 99
[2022-03-20] MEDS: IBUPROFEN 600 MG TABLET PO ×2 (00:54→07:17)
[2022-03-20] MEDS: HYDROcodone/acetaminophen (*CRX) 5-325 MG TABLET 1 TAB PO ×2 (00:54→07:19)
[2022-03-20] MEDS: SIMETHICONE 80 MG TAB.CHEW PO ×2 (00:57→07:22)
[2022-03-20 07:15] VITALS: BP 137/80; PULSE 87; RESP 16; TEMP 36.4; O2SAT 99
[2022-03-20 08:00] VITALS: PULSE 87; RESP 16; O2SAT 99
[2022-03-20] MEDS: DOCUSATE SODIUM 100 MG CAPSULE PO (09:38)
--- NOTE | 2022-03-20 10:06 | PC.NURSE ---
Patient was given the opportunity to view the discharge video Mother & Baby Care, The First Two Weeks and to ask questions. Patient declined viewing the video and has been given the mother/baby guide for home reference.
--- NOTE | 2022-03-20 15:46 | PC.NURSE ---
1400-Pt called to request a later follow up appointment; RN informed pt that there were no later appointments unless she wanted an 0800 appointment; pt stated that she has a court date and cannot make it in the AM; RN suggested she contact OB's office for blood pressure follow up. Pt. verbalized understanding.
== END 2022-03-20 11:25 | disposition home or self-care (01) | DRG 540 ==
LOC: ANHOB2 03-20 10:11 → ANHLDR 03-23 11:04 → ANHOB2 03-23 11:04
PROVIDERS: Admitting Provider Student in an Organized Health Care Education/Training Program; Visit Provider Obstetrics & Gynecology
PROC: 10D00Z1 Extraction of Products of Conception, Low, Open Approach (ICD-10-PCS; CPT 59514; principal; 2022-03-17 13:30)
DX: O34.219 Maternal care for unspecified type scar from previous cesarean delivery (principal); O99.324 Drug use complicating childbirth; F15.20 Other stimulant dependence, uncomplicated; O99.334 Smoking (tobacco) complicating childbirth; F17.210 Nicotine dependence, cigarettes, uncomplicated; O99.824 Streptococcus B carrier state complicating childbirth; Z3A.39 39 weeks gestation of pregnancy; Z37.0 Single live birth; Z30.2 Encounter for sterilization
CPT/HCPCS: 36415; 80307; 85025; 85055; 86592; 86850; 86900; 86901; 88302; 88307; A9270; J0131; J0690; J1885; J2250; J2274; J2405; J2590; J7120

== ENCOUNTER 2023-07-11 12:32 | Emergency (ER) | payer OTHER, SELFPAY | END 2023-07-11 12:53 | disposition left against medical advice (07) | LOC: EXPTROY 12:35 | PROVIDERS: Emergency Provider Nurse Practitioner Family | DX: Z53.21 Procedure and treatment not carried out due to patient leaving prior to being seen by health care provider (principal) | CPT/HCPCS: 99199 ==

== ENCOUNTER 2023-07-11 13:06 | Emergency (ER) | payer OTHER, SELFPAY ==
[2023-07-11 13:17] VITALS: BP 111/70; PULSE 95; RESP 16; TEMP 36.6; O2SAT 99
--- NOTE | 2023-07-11 14:12 | PC.NURSE ---
pts mother up to desk. states she is just going to take pt home. pt ambulatory without difficulty
== END 2023-07-11 14:12 | disposition left against medical advice (07) ==
LOC: ANHED 15:29
DX: R10.9 Unspecified abdominal pain (principal)
CPT/HCPCS: 99199

== ENCOUNTER 2023-07-12 16:05 | Emergency (ER) | payer OTHER, SELFPAY ==
[2023-07-12 16:22] VITALS: BP 104/65; PULSE 83; RESP 18; TEMP 36.2; O2SAT 100
--- NOTE | 2023-07-12 16:45 | ED.ABDPAIN ---
HPI - Abdominal Pain General Chief Complaint: Abdominal Pain Stated Complaint: abdominal pain Source: patient and RN notes reviewed History of Present Illness HPI narrative: 32 yo F presents to urgent care with complaints of generalized abdominal burning x 2 days. Pt states she vomited 2x yesterday and has had diarrhea today and yesterday. Pt states her pain is positional and it hurts when she is sitting straight up but is better when she is supine. Denies any nausea today. Denies any dysuria, vaginal discharge or concern for STI, back pain, fevers, chills, or other symptoms. Related Data Home Medications Medication Instructions Recorded Confirmed cyanocobalamin (vitamin B-12) 1,000 mcg PO DAILY 07/12/23 07/12/23 1,000 mcg tablet gabapentin 100 mg capsule 100 mg PO HS 07/12/23 07/12/23 sertraline 100 mg tablet 100 mg PO DAILY 07/12/23 07/12/23 Allergies Allergy/AdvReac Type Severity Reaction Status Date / Time penicillin G Allergy Unknown Verified 07/12/23 16:28 Review of Systems Review of Systems: CONSTITUTIONAL: Denies fever, chills, or sweats. EYES: Denies visual changes, redness, or discharge. ENT: Denies otalgia and sore throat CARDIOVASCULAR: Denies chest pain, palpitations, or edema. RESPIRATORY: Denies cough or dyspnea. GASTROINTESTINAL: abdominal pain, vomiting, and diarrhea. GENITOURINARY: Denies dysuria or hematuria. SKIN: Denies rash or itching. MUSCULOSKELETAL: Denies back pain, joint pain, or myalgia. NEUROLOGIC: Denies headache, numbness, or weakness. Pertinent positives per HPI. [facility] Past Medical History Medical History (Updated 07/12/23 @ 16:53 by Kesha Guevara APRN) Methamphetamine abuse Tobacco abuse Surgical History Surgical History (Updated 03/17/22 @ 14:52 by Valdemar Chavez MD) History of section Family History Family History (Updated 03/17/22 @ 14:32 by Odalys Latham RN) Grandparent Diabetes mellitus Hypertension Father Diabetes mellitus Hypertension Social History Social History Smoking status: Current every day smoker Tobacco type: cigarettes Second hand tobacco smoke exposure: Yes Substance use: former Gender identity (if verbalized by the patient): Female Spiritual care concerns: No Comments At the time of my signature, I reviewed and agree with the nursing past medical, surgical, social, and family history. There is no relevant family history pertinent to the patient complaint. Exam Narrative: GENERAL: This is a well-nourished, well-developed patient, in no apparent distress. HEAD: normocephalic, atraumatic. EYES: Sclera clear/white. Vision is grossly intact. EARS: External ears normal, auditory canals clear and without drainage. Hearing grossly intact. NOSE: External nose normal with no obvious nasal discharge, nares without redness, no rhinorrhea. CARDIOVASCULAR: Regular rate and rhythm without murmurs, gallops, or rubs. RESPIRATORY: Clear to auscultation. Breath sounds equal bilaterally. No wheezes, rales, or rhonchi. GASTROINTESTINAL: Abdomen soft, non-tender, nondistended. Bowel sounds are active. No hepato-splenomegaly, or palpable masses. No guarding. SKIN: warm, intact with no suspicious lesions or rash, good texture and turgor. NEURO: awake, alert, and oriented to person, place and time. There were no obvious focal neurologic abnormalities. BACK: Nontender without deformity or crepitus. No flank tenderness. Course Course Level of Care: Express Care Visit Vital Signs Vital signs: Vital Signs Oxygen Delivery Room Air 07/12/23 16:20 Temperature 97.2 F L 07/12/23 16:22 Pulse Rate 83 07/12/23 16:22 Respiratory Rate 18 07/12/23 16:22 Blood Pressure 104/65 07/12/23 16:22 Pulse Oximetry 100 07/12/23 16:22 Oxygen Delivery Room Air 07/12/23 16:22 reviewed MDM - Abdominal Pain MDM Narrative Medical decision making
--- NOTE | 2023-07-12 16:46 | PC.NURSE ---
PT DENIES ANY URINARY SX, BACK PAIN. REPORTS THE CRAMPING HAS TURNED INTO A BURNING SENSATION. PT DENIES ANY VAGINAL DISCHARGE.
== END 2023-07-12 16:50 | disposition short-term general hospital (02) ==
PROVIDERS: Emergency Provider Nurse Practitioner Family; PCP Physician Assistant
DX: R10.9 Unspecified abdominal pain (principal); F17.210 Nicotine dependence, cigarettes, uncomplicated; Z79.899 Other long term (current) drug therapy
CPT/HCPCS: 99212; G0463

== ENCOUNTER 2023-08-29 15:01 | Emergency (ER) | payer OTHER, SELFPAY ==
--- NOTE | ~2023-08-29 | XR_ITS ---
EXAM: XR ankle RT min 3V DATE: 08/29/2023 15:19 HISTORY: injury,fell 1.5 wks ago continues with pain lat Rt ankle . COMPARISON: None available. FINDINGS: Normal mineralization. No fracture or dislocation. No lytic or blastic lesion. Joint space s are maintained. No erosion or periosteal change. Soft tissues within normal limits. IMPRESSION: No acute osseous finding in the right inguinal. Reviewed, dictated and finalized at location [facility]. [facility] [employer] EXAMINER
[2023-08-29 15:01] VITALS: BP 134/75; PULSE 94; RESP 16; TEMP 36.8; O2SAT 99
--- NOTE | 2023-08-29 15:36 | ED.LOWEXIN ---
HPI - Extremity Injury (Lower) General Chief Complaint: Extremity Injury, Lower Stated Complaint: ankle injury Time Seen by Provider: 08/29/23 15:07 Source: patient Mode of arrival: ambulatory Limitations: no limitations History of Present Illness HPI Narrative: This is a 32 year old female that presents to the ER for right ankle pain after an injury one week ago. Reports twisting the ankle. Reports swelling and pain to the area. Denies decreased ROM or numbness. Related Data Home Medications Medication Instructions Recorded Confirmed cyanocobalamin (vitamin B-12) 1,000 mcg PO DAILY 07/12/23 07/12/23 1,000 mcg tablet gabapentin 100 mg capsule 100 mg PO HS 07/12/23 07/12/23 sertraline 100 mg tablet 100 mg PO DAILY 07/12/23 07/12/23 Allergies Allergy/AdvReac Type Severity Reaction Status Date / Time No Known Allergies Allergy Verified 08/29/23 15:03 Review of Systems Review of Systems: CONSTITUTIONAL: Denies fever MUSCULOSKELETAL: Reports joint pain, and myalgia. NEUROLOGIC: Denies numbness, or weakness. All systems reviewed & are unremarkable except as noted in HPI and below PMFSH Past Medical History Medical History (Updated 08/29/23 @ 15:37 by Belen Rondon PA-C) Methamphetamine abuse Tobacco abuse Surgical History Surgical History (Updated 03/17/22 @ 14:52 by Valdemar Chavez MD) History of section Family History Family History (Updated 03/17/22 @ 14:32 by Odalys Latham RN) Grandparent Diabetes mellitus Hypertension Father Diabetes mellitus Hypertension Social History Social History Smoking status: Current every day smoker Tobacco type: cigarettes Second hand tobacco smoke exposure: Yes Substance use: former Gender identity (if verbalized by the patient): Female Spiritual care concerns: No Exam Narrative: GENERAL: Well-appearing, well-nourished, and in no acute distress. HEAD: Normocephalic, atraumatic. EYES: EOMI. EXTREMITIES: Normal range of motion. No edema or obvious deformity. Normal DP pulse. Normal sensation SKIN: Warm, dry, no rash. NEURO: No focal deficits. Alert and oriented x3. PSYCH: Normal mood and affect Course Course Emergency Course: Patient updated on workup and agrees with plan of care Vital Signs Vital signs: Vital Signs Temperature 98.3 F 08/29/23 15:01 Pulse Rate 94 08/29/23 15:01 Respiratory Rate 16 08/29/23 15:01 Blood Pressure 134/75 08/29/23 15:01 Pulse Oximetry 99 08/29/23 15:01 Temperature 98.3 F 08/29/23 15:01 Pulse Rate 94 08/29/23 15:01 Respiratory Rate 16 08/29/23 15:01 Blood Pressure 134/75 08/29/23 15:01 Pulse Oximetry 99 08/29/23 15:01 MDM - Extremity Injury (Lower) MDM Narrative Medical decision making narrative: Patient presents to the ER for right ankle pain after an injury sustained a week ago. Reports twisting the ankle. She is neurologically intact. Ankle x-ray without acute osseous abnormalities. She was instructed on care of ankle sprain. She is to follow up with her primary care doctor. She was given warnings to return to the ER Differential Diagnosis Differential diagnosis: Likely ankle sprain and strain and ankle fracture Imaging Data Radiologist's impression: ITS Impressions Ankle X-Ray 08/29/23 15:21 IMPRESSION: No acute osseous finding in the right inguinal. ITS Impressions Ankle X-Ray 08/29/23 15:21 IMPRESSION: No acute osseous finding in the right inguinal. Critical Care Time Critical Care Time Critical Care Time: No Discharge Plan Discharge Clinical Impression: Ankle sprain and strain Patient Disposition: Home, Self-Care Condition: Stable Instructions: Ankle Sprain (ED) Additional Instructions: Return to the ER if you experience fever, redness and swelling of your extremity, numbness or any other symptoms that are concerning
== END 2023-08-29 15:50 | disposition home or self-care (01) ==
PROVIDERS: Emergency Provider Physician Assistant; PCP Physician Assistant
DX: S93.401A Sprain of unspecified ligament of right ankle, initial encounter (principal); S96.911A Strain of unspecified muscle and tendon at ankle and foot level, right foot, initial encounter; F17.210 Nicotine dependence, cigarettes, uncomplicated; X50.9XXA Other and unspecified overexertion or strenuous movements or postures, initial encounter
CPT/HCPCS: 73610; 99283

== ENCOUNTER 2024-10-20 05:01 | Emergency (ER) | payer SELFPAY ==
[2024-10-20 05:08] VITALS: BP 144/79; PULSE 111; RESP 18; TEMP 37.4; O2SAT 98
[2024-10-20 07:14] VITALS: BP 130/85; PULSE 101; RESP 18; TEMP 37.5; O2SAT 96
--- NOTE | 2024-10-20 08:06 | PC.NURSE ---
Pt seen leaving ED with steady gait in NAD
--- OUTSIDE RECORDS SUMMARY | 2024-10-27 08:14 | XMS_ITS | Encounter Summary ---
Author Organization [facility] Address [address] [place] [address]. [place], [place] [id number] [place] [id number] Care Team Providers Care Seaman Officer Name Role Phone Royer Zhang MD Primary Care Provider [phone]- [phone] Encounter Details Date Type Department Care Team (Latest Contact Info) Description 12/05/2021 Travel Social History Tobacco Use Types Packs/Day Years Used Date Smoking Tobacco: Every Day Cigarettes Smokeless Tobacco: Never Alcohol Use Standard Drinks/Week Comments No 0 (1 standard drink = 0.6 oz pur e alcohol) AUDIT-C Answer Date Recorded Frequency of Alcohol Consumption Never 04/03/2019 Average Number of Drinks Not on file 019 Frequency of Binge Drinking Not on file 03/18 Comments Yes Sex and Gender Information Value Date Recorded Sex Assigned at Not on file Legal Sex Female 5:56 PM LVN LPN Gender Identity Not on file Sexual Orientation Not on file COVID-19 Exposure Response Date Recorded In the last 10 days, have yo u been in contact with someone who was confirmed or suspected to have Coronavirus/COVID-19? No / Unsure 12/05/2021 4:26 PM LVN LPN documented as of this encounter Plan of Treatment Not on file documented as of this encounter Visit Diagnoses Not on filedocumented in this encounter Care Teams Seaman Officer Relationship Specialty Start Date End Date Royer Zhang MD [address] [place] [phone] PCP - General FAMILY PRACTICE 04/03/19 documented as of this encounter
--- OUTSIDE RECORDS SUMMARY | 2024-10-27 08:14 | XMS_ITS | Encounter Summary ---
Author Organization [facility] Address [address] [place] [address]. [place], [place] [id number] [place] [id number] Care Team Providers Care Note Teller Name Role Phone Royer Zhang MD Primary Care Provider [phone] Reason for Visit * Reason Comments Encounter Details Date Type Department Care Team (Latest Contact Info) Description 12/05/2021 4:23 PM PRODUCE PRODUCTION TEAM MEMBER - 12/05/2021 5:35 PM PRODUCE PRODUCTION TEAM MEMBER Hospital Encounter [facility] [place] [address] Dirk Andersen MD [address] [place] [id number] Discharge Disposition: Home or Self Care (Routine Discharge) Social History Tobacco Use Types Packs/Day Years [...] on file Legal Sex Female 5:56 PM PRODUCE PRODUCTION TEAM MEMBER Gender Identity Not on file Sexual Orientation Not on file COVID-19 Exposure Response Date Recorded In the last 10 days, have yo u been in contact with someone who was confirmed or suspected to have Coronavirus/COVID-19? No / Unsure 12/05/2021 4:26 PM PRODUCE PRODUCTION TEAM MEMBER documented as of this encounter Last Filed Vital Signs Vital Sign Reading Time Taken Comments Blood Pressure 118/65 12/05/2021 4:34 PM PRODUCE PRODUCTION TEAM MEMBER Pulse 86 12/05/2021 4:34 PM PRODUCE PRODUCTION TEAM MEMBER Temperature 36.6 ??C (97.9 ??F) 12/05/2021 4:56 PM CS T Respiratory Rate 20 12/05/2021 4:56 PM PRODUCE PRODUCTION TEAM MEMBER Oxygen Saturation - - Inhaled Oxygen Concentration - - Weight - - Height - - Body Mass Index - - documented in this encounter Discharge Instructions * Discharge Instructions* Luda Rome RN - 12/05/2021 5:27 PM PRODUCE PRODUCTION TEAM MEMBER Patient Education - The Sixth Month About this topic It is important for you to learn how to take care of yourself to help you have a healthy baby and safe delivery. It is good to have health care throughout your . The sixth month of your starts around week 24 and lasts through week 28. By knowing how far along you are, you can learn what is normal for this stage of your and plan for what isnext. General Your body During the sixth month of your , here are some things you can expect. You may: ?? Start to gain a little more weight. It is normal to gain about 10 to 15 pounds (4.5 to 7 kg) total in your first 6 months. ?? Have problems like back pain, dry eyes, or aching hands and wrists ?? Itching of palms, abdomen, or soles of your feet ?? Swelling of ankles, fingers, or face. ?? Need to urinate more frequently. ?? Have problems with hemorrhoids. Be sure to eat plenty of fresh fruits and vegetables to increasethe fiber in your diet. Drink plenty of water to help keep your stools soft. ?? Continue having Ash Dawkins contractions. You may feel your belly squeezing or getting tight. ?? Have a glucose test to test for gestational diabetes. ?? Have more headaches. Talk to your doctor about how to help with them. ?? See stretch quinones on your belly, breasts, or legs. Stay active to try and keep good muscle tone. ?? See an increase in vaginal discharge. Talk to your doctor about what to expect. Your baby's growth and development: ?? Your baby looks like a very small baby. ?? They are able to live outside of your womb but would need a lot of help breathing, eating, and staying pilates coordinator an intensive care unit. ?? Your baby has times of being awake and times of being asleep. The baby???s eyelids are able to open and close. ?? They move more and have hiccups. ?? Your baby is about 14 inches (36 cm) long and weighs about 2 pounds (900 gm). Your baby is aboutthe size of an eggplant. ?? Baby may be able to hear voices. Things to Think About ?? Avoid alcohol, drugs, tobacco products, and second hand smoke ?? Eat small meals throughout the day instead of larger meals. ?? Avoid spicy, greasy, or fatty foods. ?? Avoid lying down or bending over for around 3 hours after eating ?? Warm baths are fine to help you relax. Avoid hot tubs while you are . ?? Avoid straining when having bowel movements. ?? Learning how to care for your baby. You may want to sign up for classes on how to take care of anewborn. ?? Are you planning on going back to work after having your baby? It???s not too early to think about daycare. ?? Consider starting your plan if you have specific needs or wishes for delivery. When do I need to call the doctor? ?? Contractions every 10 minutes or more often that do not go away with drinking water or position changes ?? Low, dull back pain that does not go away ?? Pressure in your pelvis that feels like your baby is pushing down ?? A gush or constant trickle of watery or bloody fluid leaking from your vagina ?? Cramps in your lower belly that come and go or are constant ?? Change in your baby's movement ?? Fever of 100.4??F (38??C) or higher ?? Little to no movement felt by baby in 2 hours. Your baby should be moving at least 10 times every 2 hours. ?? Headache that does not go away; blurry vision; seeing spots or halos; increase in swelling in your hands, feet, or face; and pain under your ribs on the right side ?? Vaginal bleeding with or without pain ?? After a car accident, fall, or any trauma to your belly ?? Having thoughts of harming yourself or others, or do not feel safe at home Where can I learn more? [employer] https://familydoctor.org/aekmtsw-fl-rfis-hgim-jiybfn-frdpowbit-second-trimester/ KidsHealth http://kidshealth.org/en/parents/vuvdtuoqv-oelgtuyz-wwpgs.html?WT.ac=p-woar Office of Women???s Health https://www.womenshealth.gov//fhvnk-rjnjlwni-wlu-what/stages- Last Reviewed Date 2020-02-21 Consumer Information Use and Disclaimer This generalized information is a limited summary of diagnosis, treatment, and/or medication information. It is not meant to be comprehensive and should be used as a tool to help the user understand and/or assess potential diagnostic and treatment options. It does NOT include all information about conditions, treatments, medications, side effects, or risks that may apply to a specific patient. Itis not intended to be medical advice or a substitute for the medical advice, diagnosis, or treatment of a health care provider based on the health care provider's examination and assessment of a patient???s specific and unique circumstances. Patients must speak with a health care provider for complete information about their health, medical questions, and treatment options, including any risks orbenefits regarding use of medications. This information does not endorse any treatments or medications as safe, effective, or approved for treating a specific patient. [employer] and its affiliates disclaim any warranty or liability relating to this information or the use thereof. The use of this information is governed by the Terms of Use, available at https://www.[employer].com/en/solutions/lexicomp/about/odette Copyright Copyright ?? 2020 [employer] and its affiliates and/or licensors. All rights reserved. Patient Education Alcohol and Drug Use in The Basics Written by the doctors and editors at [employer] What can happen if I drink alcohol or use drugs during ???--??Drinking alcohol or taking certain drugs during can cause serious problems for you and your baby. Anyone who is thinking about getting should stop drinking alcohol and using drugs before they start trying. This is important because: ?? Even small amounts of alcohol or certain drugs can be harmful to a . ?? A person might not know they are for the first few weeks of their . If you want to get , it's also important to talk to your doctor or nurse about any prescription medicines you take. Some medicines are not safe during . What problems can happen if I drink alcohol during ???--??Babies of mothers who drink alcohol during can have alcohol spectrum disorder (also called FASD ). This condition causes brain damage and growth problems. Compared with normal babies, babies with FASD tend to weigh less, have smaller heads, and be very fussy. When they grow up, they have life-long problems with thinking and behavior. Drinking alcohol during can also increase the risk of miscarriage or stillbirth. Miscarriage, also called loss, is when a ends before 20 weeks of . Stillbirth is when a baby dies before it is born, in the second half of (after 20 weeks). Because of these risks, doctors recommend completely avoiding alcohol during . No amount of alcohol is known to be safe during . What problems can happen if I take drugs during ???--??That depends on which drug you take, when you take it, how much of it you take, and for how long. Not everyone who uses drugs during has extra problems. But many people and their babies do. The problems can also depend on other things, like whether you smoke or drink alcohol in addition to using drugs. Doctors do not know for sure exactly what every drug does to a or a growing baby. That's because it is a very hard thing to study. If you use more than 1 drug and have problems during , it can be hard to know for sure which drug caused which problem. The more drugs you use, the higher your risk of problems will be. To be safe, doctors recommend that people avoid all illegal drugs, as well as certain drugs that are legal but can cause problems. There is evidence that the following drugs can cause specific problems: ?? Heroin or other opioid pain medicine - Using heroin during increases the risk for manyserious problems. For example, people who use heroin during can get infections that also affect the baby. The babies of mothers who use heroin can also be born weighing less than normal or with a serious problem called abstinence syndrome. These same problems can happen if a person takes prescription pain medicines called opioids or narcotics. These include morphine, oxycodone, and fentanyl. ?? Cocaine - People who take cocaine during are more likely to have problems with the placenta. The placenta is the organ that forms between the mother and baby during . It brings the baby nutrients and oxygen and carries away waste. Using cocaine can cause the placenta to separate from the uterus before delivery. This can be harmful for the mother and baby. Babies born to mothers who use cocaine during have a higher chance of being born too early (called premature ) or being too small. These problems can affect the baby's feeding, sleeping, breathing, vision, and hearing. ?? Marijuana - Marijuana (along with other forms of cannabis) is legal in some places. But doctors recommend avoiding it during . That's because it might cause problems for the baby, either at or later in life. It is also possible that using marijuana during raises the riskof other problems, such as premature (early) labor or having a baby that is smaller than normal. More research is needed to better understand how marijuana affects . What should I do if I am and already use alcohol or drugs???--??If you are and drink alcohol or use drugs, speak to your doctor or nurse. They can give you advice on the best and safest ways to quit. If you use alcohol, heroin, or opioid medicines, stopping suddenly can be dangerous for you or your baby. Your doctor or nurse can help you get off alcohol or drugs safely, so that your baby can be as healthy as possible. As part of this process, you might need to take certain medicines. Your doctor or nurse can also put you in touch with counselors or other people you can talk to for support. All topics are updated as new evidence becomes available and our peer review process is complete. This topic retrieved from [employer] on: Sep 23, 2021. Topic 05869 Version 13.0 Release: 29.5.2 - C29.340 ?2020??[employer]. and/or its affiliates.??All rights reserved. Consumer Information Use and Disclaimer This information is not specific medical advice and does not replace information you receive from your health care provider. This is only a brief summary of general information. It does NOT include all information about conditions, illnesses, injuries, tests, procedures, treatments, therapies, discharge instructions or life-style choices that may apply to you. You must talk with your health care provider for complete information about your health and treatment options. This information should not be used to decide whether or not to accept your health care provider's advice, instructions or recommendations. Only your health care provider has the knowledge and training to provide advice that is right for you. The use of this information is governed by the [employer] End User License Agreement, available at https://www.[employer]/en/solutions/[employer]/about/odette.The use of [employer] content is governed by the [employer] Terms of Use. ??2020 [employer]. All rights reserved. Copyright ?2020??[employer] and/or its affiliates.??All rights reserved. UCE PRODUCTION TEAM MEMBER documented in this encounter Medications at Time of Discharge vitamin, low iron, ( VITAMIN WITH IRON) 27-0.8 MG tablet Take 1 tablet by mouth daily. 11/05/2022 documented as of this encounter Plan of Treatment Not on file documented as of this encounter Procedures Procedure Name Priority Date/Time Associated Diagnosis Comments HC CREATININE OTH SOURCE Routine 12/05/2021 4:30 PM PRODUCE PRODUCTION TEAM MEMBER ([facility]/HCC) DRUG SCREEN RAPID Routine 12/05/2021 4:3 0 PM PRODUCE PRODUCTION TEAM MEMBER ([facility]) HC URINALYSIS AUTO W/MICRO Routine 12/05/2021 4:30 PM PRODUCE PRODUCTION TEAM MEMBER ([facility]) documented in this encounter Results * (ABNORMAL) PROTEIN CREAT RATIO URINE (12/05/2021 4:30 PM PRODUCE PRODUCTION TEAM MEMBER) PROTEIN RANDOM (U) 17.0(H) <11.9 MG/DL 12/05/2021 5:05 PM PRODUCE PRODUCTION TEAM MEMBER [facility] CREATININE (U) 150.0 MG/DL 12/05/2021 5:05 PM PRODUCE PRODUCTION TEAM MEMBER [facility] Comment:REFERENCE RANGE NOT ESTABLISHED PROTEIN/CREATINI NE RATIO 0.1 12/05/2021 5:05 PM [facility] Comment:CALCULATED VALUE. [facility] REFERENCE RANGE HAS NOT BEEN ESTABLISHED. URINE SPECIMEN / Unknown 12/05/2021 4:30 PM PRODUCE PRODUCTION TEAM MEMBER us Dirk Andersen MD URINE ORDERABLES Final Result [facility] [address] [place] [address], * (ABNORMAL) URINALYSIS (12/05/2021 4:30 PM PRODUCE PRODUCTION TEAM MEMBER) COLOR (U) YELLOW 12/05/2021 5:02 PM [facility] TRANSPARENCY CLEAR 12/05/2021 5:02 PM [facility] SPECIFIC GRAVITY (U) 1.030(H) 1.000 - 1.025 12/05/2021 5:02 PM [facility] Comment:EQUAL TO OR GREATER THAN U PH 6.0 5.0 - 8.0 12/05/2021 5:02 PM [facility] LEUKOCYTES (U) NEGATIVE NEGATIVE 12/05/2021 5:02 PM [facility] NITRITES NEGATIVE NEGATIVE 12/05/2021 5:02 PM [facility] PROTEIN (U) NEGATIVE NEGATIVE 12/05/2021 5:02 PM [facility] URINE GLUCOSE NEGATIVE NEGATIVE 12/05/2021 5:02 PM [facility] KETONES MG/DL (U) NEGATIVE NEGATIVE 12/05/2021 5:02 PM [facility] UROBILINOGEN 0.2 <1.0 EU/DL 12/05/2021 5:02 PM [facility] BILIRUBIN (U) NEGATIVE NEGATIVE 12/05/2021 5:02 PM [facility] BLOOD (U) NEGATIVE NEGATIVE 12/05/2021 5:02 PM [facility] WBC/HPF 0-5 0 - 5 /HPF 12/05/2021 5:02 PM PRODUCE PRODUCTION TEAM MEMBER [facility] RBC/HPF 0-5 0 - 5 /HPF 12/05/2021 5:02 PM PRODUCE PRODUCTION TEAM MEMBER [facility] EPI/HPF FEW /LPF 12/05/2021 5:02 PM PRODUCE PRODUCTION TEAM MEMBER [facility] BACTERIA (U) 2+ /HPF 12/05/2021 5:02 PM PRODUCE PRODUCTION TEAM MEMBER [facility] MUCUS PRESENT 12/05/2021 5:02 PM PRODUCE PRODUCTION TEAM MEMBER [facility] URINE SPECIMEN OBTAINED BY CLEAN CATCH PROCEDURE / Unknown 12/05/2021 4:30 PM PRODUCE PRODUCTION TEAM MEMBER us Dirk Andersen MD URINE ORDERABLES Final Result [facility] [address] [place] [id number], * DRUG SCREEN RAPID (12/05/2021 4:30 PM PRODUCE PRODUCTION TEAM MEMBER) CANNABINOIDS SCREEN (U) NEGATIVE NEGATIVE 12/05/2021 5:03 PM PRODUCE PRODUCTION TEAM MEMBER [facility] PHENCYCLIDINE PCP (U) NEGATIVE NEGATIVE 12/05/2021 5:03 PM PRODUCE PRODUCTION TEAM MEMBER [facility] COCAINE METABOLITES (U) NEGATIVE NEGATIVE 12/05/2021 5:03 PM PRODUCE PRODUCTION TEAM MEMBER [facility] METHAMPHETAMINE (U) NEGATIVE NEGATIVE 12/05/2021 5:03 PM PRODUCE PRODUCTION TEAM MEMBER [facility] OPIATE SCREEN (U) NEGATIVE NEGATIVE 022 5:03 PM PRODUCE PRODUCTION TEAM MEMBER [facility] AMPHETAMINE (U) NEGATIVE NEGATIVE 5:03 PM PRODUCE PRODUCTION TEAM MEMBER [facility] BENZODIAZEPINES SCREEN (U) NEGATIVE NEGATIVE 12/05/2021 5:03 PM PRODUCE PRODUCTION TEAM MEMBER [facility] TRICYCLIC ANTIDEPRESSANT SCREEN (U) NEGATIVE NEGATIVE 12/05/2021 5:03 PM PRODUCE PRODUCTION TEAM MEMBER [facility] METHADONE (U) NEGATIVE NEGATIVE 12/05/2021 5:03 PM PRODUCE PRODUCTION TEAM MEMBER [facility] BARBITURATES SCREEN (U) NEGATIVE NEGATIVE 12/05/2021 5:03 PM PRODUCE PRODUCTION TEAM MEMBER [facility] OXYCODONE SCREEN (U) NEGATIVE NEGATIVE 12/05/2021 5:03 PM PRODUCE PRODUCTION TEAM MEMBER [facility] PROPOXYPHENE SCREEN (U) NEGATIVE NEGATIVE 12/05/2021 5:03 PM PRODUCE PRODUCTION TEAM MEMBER [facility] URINE TOX COMMENT THIS TEST METHODOLOGY IS DESIGNED AND OFFERED A RAPID TURNAROUND, QUALITATIVE SCREENING PROCEDURE TO AID IN THE IMMEDIATE MEDICAL ASSESSMENT OF PATIENTS SUSPECTED OF SUBSTANCE ABUSE. 12/05/2021 4:30 PM PRODUCE PRODUCTION TEAM MEMBER [facility] Comment: CLINICAL CONSIDERATION AND PROFESSIONAL JUDGMENT MUST BE APPLIED TO ANY DRUG OF ABUSE TEST RESULT, BOTH POSITIVE AND NEGATIVE. CONFIRMATORY QUANTITATIVE RESULTS ARE AVAILABLE THROUGH OUR [facility]. URINE SPECIMEN / Unknown 12/05/2021 4:30 PM PRODUCE PRODUCTION TEAM MEMBER us Dirk Andersen MD URINE ORDERABLES Final Result [facility] [address] [place] [address], documented in this encounter Visit Diagnoses Diagnosis (HHS/HCC)- Primary state, incidental documented in this encounter Care Teams Note Teller Relationship Specialty Start Date End Date Royer Zhang MD [address] [place] [phone] PCP - General FAMILY PRACTICE 04/03/19 documented as of this encounter
--- OUTSIDE RECORDS SUMMARY | 2024-10-27 08:14 | XMS_ITS | Encounter Summary ---
Author Organization [facility] Address [facility] [place] [address] [place] [address] Care Team Providers Care Fiber Optic Assembler Name Role Phone Royer Zhang MD Primary Care Provider [phone] Reason for Visit * Reason Comments Eye Problem Pt arrives to the ER with c/o right eye pain, and reddness. Pt believes she has 1-2 contact lens suck in her eye since last night. Encounter Details Date Type Department Care Team (Late Contact Info) Description 01/21/2022 11:30 PM CDT - 01/22/2022 12:12 AM CDT Emergency [facility] [address] [facility] [place] [address] Bernabe Drew MD [address] [place] [id number] Eye Problem (Pt arrives to the ER with c/o right eye pain, and reddness. Pt believes she has 1-2 contact lens suck in her eye since last night. 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 No / Unsure 01/21/2022 11:23 PM CDT documented as of this encounter Last Filed Vital Signs Vital Sign Reading Time Taken Comments Blood Pressure 118/78 01/21/2022 11:35 PM CDT Pulse 82 01/21/2022 11:35 PM CDT Temperature 36.7 ??C (98.1 ??F) 01/21/2022 11:35 PM C DT Respiratory Rate 16 01/21/2022 11:35 PM CDT Oxygen Saturation 99% 01/21/2022 11:35 PM CDT Inhaled Oxygen Concentration - - Weight 87.1 kg (192 lb) 01/21/2022 11:35 PM CDT Height 165.1 cm (5' 5 ) 01/21/2022 11:35 PM CDT Body Mass Index 31.95 01/21/2022 11:35 PM CDT documented in this encounter Discharge Instructions * Discharge Instructions* Bernabe Drew MD - 01/22/2022 12:00 AM CDT Apply antibiotic ointment 3 times a day for the next several days until your eye has healed * Attachments The following attachments cannot be sent through Care Everywhere. * Corneal Abrasion Discharge Instructions (Tu[place]) documented in this encounter Medications at Time of Discharge HYDROcodone-aceta minophen 5-325 MG tabletIndications :Acute Pain < 3 Day Supply Take 1 tablet by mouth every 6 (six) hours as needed. Indications: Acute Pain < 3 Day Supply 10 tablet 01/22/2022 11/05/2022 vitamin, low iron, ( VITAMIN WITH IRON) 27-0.8 MG tablet Take 1 tablet by mouth daily. 11/05/2022 sertraline 50 MG tablet 01/12/2022 11/05/2022 documented as of this encounter ED Notes * Bernabe Drew MD - 01/21/2022 11:24 PM CDT eMERGENCY dEPARTMENT eNCOUnter CHIEF COMPLAINT Chief Complaint Patient presents with ??? Eye Problem Pt arrives to the ER with c/o right eye pain, and reddness. Pt believes she has 1-2 contact lens suck in her eye since last night. HPI HPI Kathryn Barry is a 31-year-old female who presents to the ER with a complaint of pain to theright eye. Patient states she wears soft contact lenses which are daily disposables. She went to remove her right contact but states she could not remove it and believes it slid off the cornea. She been trying repeatedly to remove it and now has significant pain. No other complaints at this time. ALLERGIES Allergies Allergen Reactions ??? Penicillins Unknown CURRENT MEDICATIONS Current Outpatient Medications Medication Sig ??? HYDROcodone-acetaminophen 5-325 MG tablet Take 1 tablet by mouth every 6 (six) hours as needed.Indications: Acute Pain < 3 Day Supply ??? vitamin, low iron, ( VITAMIN WITH IRON) 27-0.8 MG tablet Take 1 tablet by mouth daily. ??? sertraline 50 MG tablet PAST MEDICAL HISTORY Past Medical History: Diagnosis Date ??? Depression SURGICAL HISTORY Past Surgical History: Procedure Laterality Date ??? SECTION SOCIAL HISTORY Social History Socioeconomic History ??? Marital status: Single Spouse name: Not on file ??? Number of children: Not on file ??? Years of education: Not on file ??? Highest education level: Not on file Occupational History ??? Not on file Tobacco Use ??? Smoking status: Current Every Day Smoker Packs/day: 0.50 Types: Cigarettes ??? Smokeless tobacco: Never Used Substance and Sexual Activity ??? Alcohol use: No ??? Drug use: Not Currently Types: Amphetamines, Methamphetamines ??? Sexual activity: Not on file Other Topics Concern ??? Not on file Social History Narrative ??? Not on file Social Determinants of Health Financial Resource Strain: Not on file Food Insecurity: Not on file Transportation Needs: Not on file Physical Activity: Not on file Stress: Not on file Social Connections: Not on file Intimate Partner Violence: Not on file FAMILY HISTORY Family History Problem Relation Name Age of Onset ??? No Known Problems Mother ??? No Known Problems Father ??? No Known Problems Sister ??? No Known Problems Brother REVIEW OF SYSTEMS Review of Systems All other ROS negative unless noted above in HPI. PHYSICAL EXAM Physical Exam Filed Vitals: 01/21/22 2335 BP: 118/78 Pulse: 82 Resp: 16 Temp: 98.1 ??F (36.7 ??C) TempSrc: Oral SpO2: 99% Weight: 87.1 kg (192 lb) Height: 5' 5 (1.651 m) The patient is a well developed and well nourished adult female in mild distress, alert and oriented. HEENT: PERRL, EOMI, there is significant some conjunctival injection on the right lateral sclera, there is no obvious foreign body or contact lens. Eversion of both upper and lower right eyelid was performed without identifying a contact lens and there is no lens on the cornea that I can visualize.Fluorescein stain was performed which shows no corneal area of uptake but does highlight the scleral abrasion on the right. EKG RADIOLOGY No orders to display LABS No results found for this visit on 01/21/22. ED MEDICATIONS Medications erythromycin (ROMYCIN) ophthalmic ointment ( Right Eye Given 01/22/22 0005) HYDROcodone-acetaminophen (NORCO) 5-325 MG tablet 2 tablet (2 tablets Oral Given 01/22/224) PROCEDURES Procedures CONSULTS: ED COURSE & MEDICAL DECISION MAKING MDM I explained to the patient that I am fairly confident there is no contact lens remaining although to be on the safe side she should see an branch service specialist next 24 hours. Because of the scleral abrasion we will start her on antibiotic ointment as well as pain medication refer her to family eye care within the next 24 hours. FINAL IMPRESSION SNOMED CT(R) 1. Abrasion of sclera of right eye ABRASION OF EYE REGION 2. Sensation of foreign body in eye FEELING OF SAND OR FOREIGN BODY IN EYE [facility] [place] [address] [facility] [phone] Call They open at 8:30am morning. New Prescriptions HYDROCODONE-ACETAMINOPHEN 5-325 MG TABLET Take 1 tablet by mouth every 6 (six) hours as needed. Indications: Acute Pain < 3 Day Supply Bernabe Drew MD 01/22/22 001 documented in this encounter Plan of Treatment Not on file documented as of this encounter Visit Diagnoses Diagnosis Abrasion of sclera of right eye- Primary Sensation of foreign body in eye Other ill-defined disorder of eye documented in this encounter Administered Medications Inactive Administered Medications - up to 3 most recent administrations Medication Order MAR Action Action Date Dose Rate Site erythromycin (ROMYCIN) ophthalmic ointment Right Eye, Once, 1 dose, On Kelly 01/22/22 at 0000 Given 01/22/2022 12:05 AM CDT HYDROcodone-acetaminophen (NORCO) 5-325 MG tablet 2 tablet 2 tablet, Oral, Once, 1 dose, On Kelly 01/22/22 at 0000, Maximum dose of acetaminophen is 4000 mg from all sources in 24 hours. Given 01/22/2022 12:05 AM CDT 2 tablets documented in this encounter Active and Recently Administered Medications Times are shown in CDT. Scheduled Medication Order 01/20/2022 01/21/2022 01/22/2022 erythromycin (ROMYCIN) ophthalmic ointment (COMPLETED) Right Eye, Once, 1 dose, On Kelly 01/22/22 at 0000 0005 (Given - Provid er: Emiliana Delgado RN) HYDROcodone-acetaminophen (NORCO) 5-325 MG tablet 2 tablet (COMPLETED) 2 tablet, Oral, Once, 1 dose, On Kelly 01/22/22 at 0000, Maximum dose of acetaminophen is 4000 mg from all sources in 24 hours. 0005 (Given - Provid er: Emiliana Delgado RN - Comment: medication given to go) documented in this encounter Care Teams Fiber Optic Assembler Relationship Specialty Start Date End Date Royer Zhang MD [address] [place] [phone] PCP - General FAMILY PRACTICE 04/03/19 documented as of this encounter
--- OUTSIDE RECORDS SUMMARY | 2024-10-27 08:14 | XMS_ITS | Encounter Summary ---
Author Organization [facility] Address [address] [place] [address]. [place], [place] [address] [place] [address] Care Team Providers Care Carpet Cleaning Technician Name Role Phone Royer Zhang MD Primary Care Provider [phone] Encounter Details Date Type Department Care Team (Latest Contact Info) Description 11/05/2022 Travel Social History Tobacco Use Types Packs/Day Years Used Date Smoking Tobacco: Every Day Cigarettes Smokeless Tobacco: Never Alcohol Use Standard Drinks/Week Comments Yes 0 (1 standard drink = 0.6 oz pur e alcohol) occassional AUDIT-C Answer Date Recorded Frequency of Alcohol Consumption Never 04/03/2019 Average Number of Drinks Not on file 019 Frequency of Binge Drinking Not on file 03/18 Comments No Sex and Gender Information Value Date Recorded Sex Assigned at Not on file 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 No / Unsure 11/05/2022 7:27 AM SAND MIXER MACHINE documented as of this encounter Plan of Treatment Not on file documented as of this encounter Visit Diagnoses Not on filedocumented in this encounter Care Teams Carpet Cleaning Technician Relationship Specialty Start Date End Date Royer Zhang MD [address] [place] [phone] PCP - General FAMILY PRACTICE 04/03/19 documented as of this encounter
--- OUTSIDE RECORDS SUMMARY | 2024-10-27 08:14 | XMS_ITS | Encounter Summary ---
Author Organization [facility] Address [address] [place] [address]. 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 No / Unsure 01/21/2022 11:23 PM CDT documented as of this encounter Plan of Treatment Not on file documented as of this encounter Visit Diagnoses Not on filedocumented in this encounter Care Teams Superintendent Institution Relationship Specialty Start Date End Date Royer Zhang MD [address] [place] [phone] PCP - General FAMILY PRACTICE 04/03/19 documented as of this encounter
--- OUTSIDE RECORDS SUMMARY | 2024-10-27 08:14 | XMS_ITS | Clinical Summary ---
Author Organization [facility] Address [address] [place] [address]. [place], [place] [id number] [place] [address] Care Team Providers Care Bolt Labeler Name Role Phone Royer Zhang MD Primary Care Provider [phone] Allergies Active Allergy Reactions Criticality Noted Date Comments Penicillins Unknown 07/14/2019 Medications No known medications Active Problems No known active problems Family History Medical History Relation Comments No Known Problems Brother No Known Problems Father No Known Problems Mother No Known Problems Sister Relation Status Comments Brother Alive Father Alive Mother Alive Sister Alive Social History Tobacco Use Types Packs/Day Years Used Date Smoking Tobacco: Every Day Cigarettes Smokeless Tobacco: Never Tobacco Cessation:Ready to Q uit: Not Asked; Counseling Given: Not Answered Alcohol Use Standard Drinks/Week Comments Yes 0 (1 standard drink = 0.6 oz pur e alcohol) occassional AUDIT-C Answer Date Recorded Frequency of Alcohol Consumption Never 04/03/2019 Average Number of Drinks Not on file 019 Frequency of Binge Drinking Not on file 03/18 Comments No Sex and Gender Information Value Date Recorded Sex Assigned at Not on file 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 Gender Identity Not on file Sexual Orientation Not on file Last Filed Vital Signs Vital Sign Reading Time Taken Comments Blood Pressure 103/59 11/05/2022 8:45 AM GROUNDS WORKER Pulse 117 11/05/2022 7:23 AM GROUNDS WORKER Temperature 35.7 ??C (96.2 ??F) 11/05/2022 7:23 AM CS T Respiratory Rate 16 11/05/2022 8:45 AM GROUNDS WORKER Oxygen Saturation 100% 11/05/2022 8:45 AM GROUNDS WORKER Inhaled Oxygen Concentration - - Weight 79.8 kg (176 lb) 11/05/2022 7:23 AM GROUNDS WORKER Height 165.1 cm (5' 5 ) 11/05/2022 7:23 AM GROUNDS WORKER Body Mass Index 29.29 11/05/2022 7:23 AM GROUNDS WORKER Plan of Treatment Health Maintenance Due Date Last Done Comments Cervical Cancer Screening Pap Smear (Age 30 to 64) Every 3 Years 1989 Annual Physical 1992 Pneumococcal Vaccine: Pediatrics (0 to 5 Years) and At-Risk Patients (6 to 64 Years) (1 of 2 - PCV) 1995 Hepatitis C 2007 DTaP, Tdap and Td Vaccines (1 - Tdap) 2008 04/29/1994, 05/31/1991, 03/30/1990, Additional history exists Hepatitis B Vaccines (1 of 3 - 19+ 3-dose series) 2008 Cervical Cancer Screening Pap with HPV Testing (Age 30 to 64) Every 5 Years 2019 Cervical Cancer Screening with HPV 2019 COVID-19 Vaccine ( season) 2024 Influenza Adult (#1) 2024 HPV Vaccines Aged Out No longer eligi ble based on patient's age to complete this topic Meningococcal Vaccine Aged Out No roxanne yanick eligible based on patient's age to complete this topic RSV Immunizations Under 20 Months Aged Out No longer eligible based on patient's age to complete this topic Insurance [employer] Advance Directives * Full Code (Latest Code Status on File) Date Activated Date Inactivated Comments 12/05/2021 4:29 PM 12/05/2021 7:38 PM Care Teams Bolt Labeler Relationship Specialty Start Date End Date Royer Zhang MD [address] [place] [phone] PCP - General FAMILY PRACTICE 04/03/19
--- OUTSIDE RECORDS SUMMARY | 2024-10-27 08:14 | XMS_ITS | Encounter Summary ---
Author Organization [facility] Address [address] [place] [address]. [place], [place] [id number] [place] [address] Care Team Providers Care Redrying Machine Operator Name Role Phone Royer Zhang MD Primary Care Provider Reason for Visit * Reason Comments Abdominal Pain Back Pain Hip Pain Encounter Details Date Type Department Care Team (Late st Contact Info) Description 11/05/2022 7:19 AM ANALYTICAL ENGINEER - 11/05/2022 8:48 AM ANALYTICAL ENGINEER Emergency [facility] [place] [address] Guille Harry MD [address] [place] [address] Abdominal Pain; Back Pain; Hip Pain Discharge Disposition: Home or Self Care (Routine [...] on file Legal Sex Female 5:56 PM ANALYTICAL ENGINEER Gender Identity Not on file Sexual Orientation Not on file COVID-19 Exposure Response Date Recorded In the last 10 days, have yo u been in contact with someone who was confirmed or suspected to have Coronavirus/COVID-19? No / Unsure 11/05/2022 7:27 AM ANALYTICAL ENGINEER documented as of this encounter Last Filed Vital Signs Vital Sign Reading Time Taken Comments Blood Pressure 103/59 11/05/2022 8:45 AM ANALYTICAL ENGINEER Pulse 117 11/05/2022 7:23 AM ANALYTICAL ENGINEER Temperature 35.7 ??C (96.2 ??F) 11/05/2022 7:23 AM CS T Respiratory Rate 16 11/05/2022 8:45 AM ANALYTICAL ENGINEER Oxygen Saturation 100% 11/05/2022 8:45 AM ANALYTICAL ENGINEER Inhaled Oxygen Concentration - - Weight 79.8 kg (176 lb) 11/05/2022 7:23 AM ANALYTICAL ENGINEER Height 165.1 cm (5' 5 ) 11/05/2022 7:23 AM ANALYTICAL ENGINEER Body Mass Index 29.29 11/05/2022 7:23 AM ANALYTICAL ENGINEER documented in this encounter Discharge Instructions * Discharge Instructions* Guille Harry MD - 11/05/2022 7:41 AM ANALYTICAL ENGINEER Return if pain worse, vomiting or fever over 102 YTICAL ENGINEER YTICAL ENGINEER * Attachments The following attachments cannot be sent through Care Everywhere. * Severe Abdominal Pain Discharge Instructions, Adult ([place] African) * Urinary Tract Infection Discharge Instructions, Adult ([place]) documented in this encounter Medications at Time of Discharge nitrofurantoin, macrocrystal-mono hydrate, (MACROBID) 100 MG capsule Take 1 capsule (100 mg total) by mouth 2 (two) times daily for 5 days. 10 capsule 11/05/2022 11/10/2022 documented as of this encounter ED Notes * Guille Harry MD - 11/05/2022 7:51 AM CST Chief Complaint Chief Complaint Patient presents with ??? Abdominal Pain ??? Back Pain ??? Hip Pain History of Present Illness 32-year-old female complaining of left hip pain that spread to the belly. Left hip and groin pain started 5 days ago. Patient denies any falls or injuries. Patient denies any heavy lifting. Pain thenwent up to her abdomen and is now on both sides. Patient says she can sleep on her right side better than the left. Patient denies vomiting or diarrhea. Patient thinks she had a fever at home but didnot take it. Pain is moderate to severe and constant. Pain does not radiate to the back per patient. Medical History ALLERGIES: Allergies Allergen Reactions ??? Penicillins Unknown MEDICATIONS: Prior to Admission medications Medication Sig Start Date End Date Taking? Authorizing Provider nitrofurantoin, macrocrystal-monohydrate, (MACROBID) 100 MG capsule Take 1 capsule (100 mg total) by mouth 2 (two) times daily for 5 days. 11/05/22 11/10/22 Yes Guille Harry MD PAST MEDICAL HISTORY: Past Medical History: Diagnosis Date ??? Depression PAST SURGICAL HISTORY: Past Surgical History: Procedure Laterality Date ??? SECTION ??? REMOVAL OF FALLOPIAN TUBE Bilateral FAMILY HISTORY: Family History Problem Relation Name Age of Onset ??? No Known Problems Mother ??? No Known Problems Father ??? No Known Problems Sister ??? No Known Problems Brother SOCIAL HISTORY: Social History Tobacco Use ??? Smoking status: Every Day Packs/day: 0.50 Types: Cigarettes ??? Smokeless tobacco: Never Vaping Use ??? Vaping Use: Never used Substance Use Topics ??? Alcohol use: Yes Comment: occassional ??? Drug use: Not Currently Types: Amphetamines, Methamphetamines Review of Systems Review of Systems Constitutional: Positive for fever. Negative for chills. HENT: Negative for voice change. Respiratory: Negative for wheezing. Cardiovascular: Negative for leg swelling. Gastrointestinal: Positive for abdominal pain. Negative for diarrhea and vomiting. Skin: Negative for color change. Neurological: Negative for speech difficulty. Psychiatric/Behavioral: Negative for agitation. All other systems reviewed and are negative. Physical Exam Filed Vitals: 11/05/22 0723 BP: 110/80 Pulse: (!) 117 Resp: 16 Temp: 96.2 ??F (35.7 ??C) TempSrc: Temporal SpO2: 99% Weight: 79.8 kg (176 lb) Height: 5' 5 (1.651 m) Physical Exam Constitutional: General: She is not in acute distress. Appearance: She is well-developed. She is not ill-appearing or toxic-appearing. HENT: Head: Atraumatic. Neck: Comments: Normal inspection Cardiovascular: Rate and Rhythm: Tachycardia present. Pulmonary: Effort: No respiratory distress. Breath sounds: Normal breath sounds. No stridor. No wheezing. Abdominal: General: There is no distension. Palpations: There is no mass. Tenderness: There is abdominal tenderness. There is no right CVA tenderness, left CVA tenderness orrebound. Comments: Diffuse generalized tenderness Musculoskeletal: General: Normal range of motion. Right lower leg: No edema. Left lower leg: No edema. Comments: Left hip-no pain with abduction, internal or external rotation Right hip-no pain with abduction, minimal pain with internal or external rotation Lower extremities-no pitting edema, no calf tenderness Skin: General: Skin is dry. Neurological: General: No focal deficit present. Mental Status: She is alert. Psychiatric: Mood and Affect: Mood normal. Diagnostic Studies / Procedures ELECTROCARDIOGRAMS: No results found for this visit on 11/05/22. LABORATORY STUDIES: Results for orders placed or performed during the hospital encounter of 11/05/22 CBC W/DIFF AUTOMATED Result Value Ref Range WBC 10.47 4.00 - 10.80 x10'3/uL RBC 4.61 4.10 - 5.40 x10'6/uL HGB 11.8 (L) 12.0 - 16.0 G/DL HCT 37.9 36.0 - 47.0 % MCV 82.2 78.0 - 100.0 FL MCH 25.6 (L) 27.0 - 31.0 PG MCHC 31.1 (L) 33.0 - 36.0 G/DL RDW 15.9 (H) 11.5 - 14.5 % PLT 387 (H) 150 - 350 x10'3/uL MPV 9.1 7.4 - 10.4 FL CBC COMMENT NORMAL REFERENCE RANGE NOT ESTABLISHED FOR THE PROPORTIONAL LEUKOCYTE DIFFERENTIAL. NEUTROPHILS 72.7 % LYMPHOCYTES 15.7 % MONOCYTES 7.2 % EOSINOPHILS 2.8 % BASOPHILS 0.3 % IMMATURE GRANS 1.3 % NRBC 0.0 % ABS. NEUTROPHILS 7.62 1.60 - 8.30 x10'3/uL ABS. LYMPHOCYTES 1.64 0.80 - 4.70 x10'3/uL ABS. MONOCYTES 0.75 0.00 - 1.50 x10'3/uL ABS. EOSINOPHILS 0.29 0.00 - 0.40 x10'3/uL ABS. BASOPHILS 0.03 0.00 - 0.20 x10'3/uL ABS. IMMATURE GRANULOCYTES 0.14 (H) 0.00 - 0.03 x10'3/uL ABS. NUCLEATED RBC'S 0.00 0.00 x10'3/uL COMPREHENSIVE METABOLIC PANEL Result Value Ref Range SODIUM 136 136 - 145 MMOL/L POTASSIUM 3.8 3.5 - 5.1 MMOL/L CHLORIDE S/P/B 100 98 - 107 MMOL/L CO2 30.5 21.0 - 32.0 MMOL/L GLUCOSE 118 (H) 70 - 99 MG/DL BUN 10 6 - 24 MG/DL CREATININE S/P/B 0.84 0.55 - 1.02 MG/DL CALCIUM 9.0 8.4 - 10.5 MG/DL BILIRUBIN TOTAL S/P/B 0.5 0.2 - 1.0 MG/DL ALKALINE PHOSPHATASE S/P/B 114 (H) 37 - 98 U/L AST 19 15 - 37 U/L ALT 30 14 - 59 U/L TOTAL PROTEIN S/P/B 7.7 6.4 - 8.2 G/DL ALBUMIN S/P/B 3.8 3.4 - 5.0 G/DL ANION GAP 5.5 5.0 - 15.0 MMOL/L OSMOLALITY (CALC) 282 MOSM/KG GFR ESTIMATE >90 >89 ML/MIN/1.73 M2 GFR NOTES GFR REFERENCES: LIPASE Result Value Ref Range LIPASE 69 (L) 73 - 393 UNITS/L URINALYSIS Result Value Ref Range COLOR (U) YELLOW TRANSPARENCY SLIGHTLY CLOUDY Specific Page (U) 1.025 1.000 - 1.025 U PH 5.5 5.0 - 8.0 LEUKOCYTE ESTERASE 1+ (A) NEGATIVE NITRITES NEGATIVE NEGATIVE PROTEIN (U) NEGATIVE NEGATIVE URINE GLUCOSE NEGATIVE NEGATIVE U KETONES NEGATIVE NEGATIVE UROBILINOGEN 0.2 <1.0 EU/DL BILIRUBIN (U) NEGATIVE NEGATIVE BLOOD NEGATIVE NEGATIVE WBC/HPF 20-50 (A) 0 - 5 /HPF RBC/HPF 0-5 0 - 5 /HPF EPI/LPF MODERATE /LPF BACTERIA (URINE) 1+ /HPF MUCUS PRESENT HCG QUANT (SERUM)-CHORIONIC GONADOTROPIN Result Value Ref Range HCG QUANTITATIVE <1 0.0 - 6.0 MIU/ML IMAGING STUDIES No orders to display ED Course / Medical Decision Making Medical Decision Making Ramirez score equals 4 therefore no indication for CT to rule out appendicitis. We will discharge patient on Macrobid for 5 days. Review of previous urine culture shows growing E. coli that is sensitive to Macrobid. No indication for pelvic exam at this time since urine clearly shows urinary tractinfection. Diagnoses ruled out include pancreatitis. Generalized abdominal pain: acute illness or injury UTI (urinary tract infection): acute illness or injury Amount and/or Complexity of Data Reviewed Labs: ordered. Risk Parenteral controlled substances. Clinical Impression Generalized abdominal pain (Primary) UTI (urinary tract infection) Disposition: Discharge Guille Harry MD 11/05/2238 Guille Harry MD 11/05/22 0839 YTICAL ENGINEER YTICAL ENGINEER * Jordan Porter RN - 11/05/2022 7:25 AM CST Arrives per pov with c/o nya hip pain onset 5 days ago, now hurting in abd. Denies vomiting, diarrhea. YTICAL ENGINEER documented in this encounter Plan of Treatment Not on file documented as of this encounter Procedures Procedure Name Priority Date/Time Associated Diagnosis Comments HC URINALYSIS AUTO W/MICRO STAT 11/05/2022 7:51 AM ANALYTICAL ENGINEER URINE BACTERIA CULTURE Routine 7:51 AM ANALYTICAL ENGINEER COMPREHENSIVE METABOLIC PANEL STAT 11/05/2022 7:51 AM ANALYTICAL ENGINEER HCG QUANT (SERUM)-CHORIONIC GONADOTROPIN STAT 11/05/2022 7:51 AM ANALYTICAL ENGINEER CBC W/DIFF AUTOMATED STAT 11/05/2022 7:51 AM ANALYTICAL ENGINEER LIPASE STAT 11/05/2022 7:51 AM ANALYTICAL ENGINEER documented in this encounter Results * CULTURE URINE (11/05/2022 7:51 AM ANALYTICAL ENGINEER) SPEC DESCRIPTION URINE CLEAN CATCH 11/05/2022 8:16 AM ANALYTICAL ENGINEER [facility] SPECIAL REQUESTS NO SPECIAL REQUEST 11/05/2022 8:16 AM ANALYTICAL ENGINEER [facility] CULTURE RESULT FEW CONTAMINANTS 10/19 11:34 AM ANALYTICAL ENGINEER [facility] URINE SPECIMEN OBTAINED BY CLEAN CATCH PROCEDURE / Unknown 11/05/2022 7:51 AM ANALYTICAL ENGINEER 11/05/2022 8:15 AM ANALYTICAL ENGINEER us Guille Harry MD MICROBIOLOGY - GENERAL ORDERABLE S Final Result Performing Organization Address [facility] Co de Phone Number [facility] [address] [place] [address], [place] [phone] [id number] [facility] [address] [place] [address], [place] [phone] * HCG QUANT (SERUM)-CHORIONIC GONADOTROPIN (11/05/2022 7:51 AM ANALYTICAL ENGINEER) HCG QUANTITATIVE <1 0.0 - 6.0 MIU/ML 11/05/2022 8:29 AM ANALYTICAL ENGINEER [facility] Comment:NON- FEMALE 0-6 11/05/2022 7:51 AM ANALYTICAL ENGINEER us Guille Harry MD LABORATORY Final Result Performing Organization Address [facility] Co de Phone Number [facility] [address] [place] [id number], [place] [phone] * (ABNORMAL) URINALYSIS (11/05/2022 7:51 AM ANALYTICAL ENGINEER) COLOR (U) YELLOW 11/05/2022 8:14 AM ANALYTICAL ENGINEER [facility] TRANSPARENCY SLIGHTLY CLOUDY 11/05/2022 8:14 AM ANALYTICAL ENGINEER [facility] SPECIFIC GRAVITY (U) 1.025 1.000 - 1.025 11/05/2022 8:14 AM ANALYTICAL ENGINEER [facility] U PH 5.5 5.0 - 8.0 11/05/2022 8:14 AM ANALYTICAL ENGINEER [facility] LEUKOCYTES (U) 1+(A) NEGATIVE 11/05/2022 8:14 AM ANALYTICAL ENGINEER [facility] NITRITES NEGATIVE NEGATIVE 11/05/2022 8:14 AM ANALYTICAL ENGINEER [facility] PROTEIN (U) NEGATIVE NEGATIVE 11/05/2022 8:14 AM ANALYTICAL ENGINEER [facility] URINE GLUCOSE NEGATIVE NEGATIVE 11/05/2022 8:14 AM ANALYTICAL ENGINEER [facility] KETONES MG/DL (U) NEGATIVE NEGATIVE 11/05/2022 8:14 AM ANALYTICAL ENGINEER [facility] UROBILINOGEN 0.2 <1.0 EU/DL 11/05/2022 8:14 AM [facility] BILIRUBIN (U) NEGATIVE NEGATIVE 11/05/2022 8:14 AM [facility] BLOOD (U) NEGATIVE NEGATIVE 11/05/2022 8:14 AM [facility] WBC/HPF 20-50(A) 0 - 5 /HPF 11/05/2022 8:14 AM ANALYTICAL ENGINEER [facility] RBC/HPF 0-5 0 - 5 /HPF 11/05/2022 8:14 AM ANALYTICAL ENGINEER [facility] EPI/LPF MODERATE /LPF 11/05/2022 8:14 AM [facility] BACTERIA (U) 1+ /HPF 11/05/2022 8:14 AM ANALYTICAL ENGINEER [facility] MUCUS PRESENT 11/05/2022 8:14 AM ANALYTICAL ENGINEER [facility] URINE SPECIMEN OBTAINED BY CLEAN CATCH PROCEDURE / Unknown 11/05/2022 7:51 AM ANALYTICAL ENGINEER us Guille Harry MD URINE ORDERABLES Final Result [facility] [address] [place] [address], * (ABNORMAL) LIPASE (11/05/2022 7:51 AM ANALYTICAL ENGINEER) LIPASE 69(L) 73 - 393 UNITS/L 11/05/2022 8:29 AM ANALYTICAL ENGINEER [facility] 11/05/2022 7:51 AM ANALYTICAL ENGINEER us Guille Harry MD LABORATORY Final Result [facility] [address] [place] [address], * (ABNORMAL) COMPREHENSIVE METABOLIC PANEL (11/05/2022 7:51 AM ANALYTICAL ENGINEER) SODIUM S/P/B 136 136 - 145 MMOL/L 11/05/2022 8:29 AM [facility] POTASSIUM S/P/B 3.8 3.5 - 5.1 MMOL/L 11/05/2022 8:29 AM [facility] CHLORIDE S/P/B 100 98 - 107 MMOL/L 11/05/2022 8:29 AM [facility] CO2 30.5 21.0 - 32.0 MMOL/L 11/05/2022 8:29 AM [facility] GLUCOSE 118(H) 70 - 99 MG/DL 11/05/2022 8:29 AM [facility] Comment: FASTING GLUCOSE 100 TO 125 MG/DL IS CONSISTENT WITH IMPAIRED FASTING GLUCOSE. FASTING GLUCOSE >125 MG/DL IS CONSISTENT WITH DIABETES. RANDOM GLUCOSE >200 MG/DL WITH HYPERGLYCEMIC SYMPTOMS IS CONSISTENT WITH DIABETES. PER ADA GUIDELINES BUN 10 6 - 24 MG/DL 11/05/2022 8:29 AM [facility] CREATININE S/P/B 0.84 0.55 - 1.02 MG/DL 11/05/2022 8:29 AM [facility] CALCIUM S/P/B 9.0 8.4 - 10.5 MG/DL 11/05/2022 8:29 AM [facility] BILIRUBIN TOTAL S/P/B 0.5 0.2 - 1.0 MG/DL 11/05/2022 8:29 AM [facility] Comment: THIS ASSAY IS NOT RECOMMENDED FOR PATIENTS UNDERGOING TREATMENT WITH ELTROMBOPAG DUE TO THE POTENTIAL FOR FALSELY ELEVATED RESULTS. ALKALINE PHOSPHATASE S/P/B 114(H) 37 - 98 U/L 11/05/2022 8:29 AM [facility] AST 19 15 - 37 U/L 11/05/2022 8:29 AM [facility] ALT 30 14 - 59 U/L 11/05/2022 8:29 AM [facility] TOTAL PROTEIN S/P/B 7.7 6.4 - 8.2 G/DL 11/05/2022 8:29 AM ANALYTICAL ENGINEER [facility] ALBUMIN S/P/B 3.8 3.4 - 5.0 G/DL 11/05/2022 8:29 AM [facility] ANION GAP 5.5 5.0 - 15.0 MMOL/L 11/05/2022 8:29 AM [facility] OSMOLALITY (CALC) 282 MOSM/KG 023 8:29 AM [facility] Comment:REFERENCE RANGE NOT ESTABLISHED GFR ESTIMATE >90 >89 ML/MIN/1. 73 M2 11/05/2022 8:29 AM [facility] GFR NOTES GFR REFERENCE S: 11/05/2022 8:29 AM [facility] Comment: THE ESTIMATED GFR IS CALCULATED USING THE 2020 CKD-EPI EQUATION. THE FOLLOWING CATEGORIES FOR GRADING RENAL FUNCTION ARE RECOMMENDED BY THE INTERNATIONAL SOCIETY OF NEPHROLOGY (KDIGO 2012 CLINICAL PRACTICE GUIDELINE). G1,NORMAL OR HIGH: >89 ml/min/1.73 m2 G2,MILDLY DECREASED: 60-89 ml/min/1.73 m2 G3A,MILDLY TO MODERATELY DECREASED: 45-59 ml/min/1.73 m2 G3B,MODERATELY TO SEVERELY DECREASED: 30-44 ml/min/1.73 m2 G4,SEVERELY DECREASED: 15-29 ml/min/1.73 m2 G5,KIDNEY FAILURE: <15 ml/min/1.73 m2 11/05/2022 7:51 AM ANALYTICAL ENGINEER Guille Harry MD LABORATORY Final Result [facility] [address] [place] [address], * (ABNORMAL) CBC W/DIFF AUTOMATED (11/05/2022 7:51 AM ANALYTICAL ENGINEER) WBC 10.47 4.00 - 10.80 x10'3/uL 11/05/2022 8:04 AM [facility] RBC 4.61 4.10 - 5.40 x10'6/uL 11/05/2022 8:04 AM [facility] HGB 11.8(L) 12.0 - 16.0 G/DL 11/05/2022 8:04 AM [facility] HCT 37.9 36.0 - 47.0 % 11/05/2022 8:04 AM [facility] MCV 82.2 78.0 - 100.0 FL 11/05/2022 8:04 AM [facility] MCH 25.6(L) 27.0 - 31.0 PG 11/05/2022 8:04 AM [facility] MCHC 31.1(L) 33.0 - 36.0 G/DL 11/05/2022 8:04 AM [facility] RDW 15.9(H) 11.5 - 14.5 % 11/05/2022 8:04 AM [facility] PLT 387(H) 150 - 350 x10'3/uL 11/05/2022 8:04 AM [facility] MPV 9.1 7.4 - 10.4 FL 11/05/2022 8:04 AM [facility] CBC COMMENT NORMAL REFERENCE RANGE NOT ESTABLISHED FOR THE PROPORTIONAL LEUKOCYTE DIFFERENTIAL. 11/05/2022 8:04 AM [facility] NEUTROPHILS % 72.7 % 11/05/2022 8:04 AM [facility] LYMPHOCYTES % 15.7 % 11/05/2022 8:04 AM [facility] MONOCYTES % 7.2 % 11/05/2022 8:04 AM [facility] EOSINOPHILS % 2.8 % 11/05/2022 8:04 AM [facility] BASOPHILS % 0.3 % 11/05/2022 8:04 AM ANALYTICAL ENGINEER [facility] IMMATURE GRANS % 1.3 % 11/05/19 8:04 AM ANALYTICAL ENGINEER [facility] NRBC 0.0 % 11/05/2022 8:04 AM ANALYTICAL ENGINEER [facility] ABS. NEUTROPHILS 7.62 1.60 - 8.30 x10'3/uL 11/05/2022 8:04 AM ANALYTICAL ENGINEER [facility] ABS. LYMPHOCYTES 1.64 0.80 - 4.70 x10'3/uL 11/05/2022 8:04 AM ANALYTICAL ENGINEER [facility] ABS. MONOCYTES 0.75 0.00 - 1.50 x10'3/uL 11/05/2022 8:04 AM ANALYTICAL ENGINEER [facility] ABS. EOSINOPHILS 0.29 0.00 - 0.40 x10'3/uL 11/05/2022 8:04 AM ANALYTICAL ENGINEER [facility] ABS. BASOPHILS 0.03 0.00 - 0.20 x10'3/uL 11/05/2022 8:04 AM ANALYTICAL ENGINEER [facility] ABS. IMMATURE GRANULOCYTES 0.14(H) 0.00 - 0.03 x10'3/uL 11/05/2022 8:04 AM ANALYTICAL ENGINEER [facility] ABS. NUCLEATED RBC'S 0.00 0.00 x10'3/uL 11/05/2022 8:04 AM [facility] 11/05/2022 7:51 AM ANALYTICAL ENGINEER Guille Harry MD LABORATORY Final Result [facility] [address] [place] [address], documented in this encounter Visit Diagnoses Diagnosis Generalized abdominal pain- Primary Abdominal pain, generalized UTI (urinary tract infection) Urinary tract infection, site not specified documented in this encounter Administered Medications Inactive Administered Medications - up to 3 most recent administrations Medication Order MAR Action Action Date Dose Rate Site morphine injection 2 mg 2 mg, Intravenous, Once, 1 dose, On Kelly 11/05/22 at 0745 Given 11/05/2022 8:00 AM ANALYTICAL ENGINEER 2 mg ondansetron (ZOFRAN) injection 4 mg 4 mg, Intravenous, Once, 1 dose, On Kelly 11/05/22 at 0745, IV push over 2-5 minutes. Given 11/05/2022 7:59 AM ANALYTICAL ENGINEER 4 mg sodium chloride 0.9% bolus infusion 1,000 mL 1,000 mL, Intravenous, Administer over 15 Minutes, Once, 1 dose, On Kelly 11/05/22 at 0745 New Bag 11/05/2022 7:58 AM ANALYTICAL ENGINEER 1,000 mLs 999 mL/hr documented in this encounter Active and Recently Administered Medications Times are shown in ANALYTICAL ENGINEER. Scheduled Medication Order 11/03/2022 11/04/2022 11/05/2022 morphine injection 2 mg (COMPLETED) 2 mg, Intravenous, Once, 1 dose, On Kelly 11/05/22 at 0745 0800 (Given - Provid er: Jordan Porter RN) ondansetron (ZOFRAN) injection 4 mg (COMPLETED) 4 mg, Intravenous, Once, 1 dose, On Kelly 11/05/22 at 0745, IV push over 2-5 minutes. 0759 (Given - Provid er: Jordan Porter RN) sodium chloride 0.9% bolus infusion 1,000 mL (COMPLETED) 1,000 mL, Intravenous, Administer over 15 Minutes, Once, 1 dose, On Kelly 11/05/22 at 0745 0758 (New Bag - Prov ider: Jordan Porter RN)[id number] (Infusion Stop Time - Provider: Jordan Porter RN) documented in this encounter Care Teams Redrying Machine Operator Relationship Specialty Start Date End Date Royer Zhang MD [address] [place] [phone] PCP - General FAMILY PRACTICE 04/03/19 documented as of this encounter
--- OUTSIDE RECORDS SUMMARY | 2024-10-27 08:15 | XMS_ITS | Encounter Summary ---
Author Organization [facility] Address [address] [place] [address]. 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
--- OUTSIDE RECORDS SUMMARY | 2024-10-27 08:15 | XMS_ITS | Encounter Summary ---
Author Organization [facility] Address [address] [place] [address]. 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
--- OUTSIDE RECORDS SUMMARY | 2024-10-27 08:15 | XMS_ITS | Encounter Summary ---
Author Organization [facility] Address [address] [place] [address]. 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
--- OUTSIDE RECORDS SUMMARY | 2024-10-27 08:15 | XMS_ITS | Encounter Summary ---
Author Organization [facility] Address [facility] [place] [address] [place] [address] Care Team Providers Care Solar Installer Name Role Phone Unavailable Primary Care Provider Unavailabl e Encounter Details Date Type Department Care Team (Late st Contact Info) Description 11/28/2018 Abstract [facility] [address] [place] [address] Rubin Holly MD [address] [place] [address] Social History Tobacco Use Types Packs/Day Years Used Date Smoking Tobacco: Never Assessed Comments Unknown Sex and Gender Information Value Date Recorded Sex Assigned at Not on file Legal Sex Female 5:56 PM LEATHER TANNER Gender Identity Not on file Sexual Orientation Not on file documented as of this encounter Plan of Treatment Not on file documented as of this encounter Procedures Procedure Name Priority Date/Time Associated Diagnosis Comments URINALYSIS Routine 11/28/2018 1:38 PM LEATHER TANNER TYPE AND CROSSMATCH Routine 11/28/2018 1 :35 PM LEATHER TANNER CBC W/DIFF AUTOMATED Routine 11/28/2018 1:35 PM LEATHER TANNER documented in this encounter Results * (ABNORMAL) URINALYSIS (11/28/2018 1:38 PM LEATHER TANNER) COLOR (U) YELLOW 11/28/2018 2:50 PM LEATHER TANNER [facility] TRANSPARENCY CLEAR 11/28/2018 2:50 PM LEATHER TANNER [facility] SPECIFIC GRAVITY (U) 1.025 1.000 - 1.025 11/28/2018 2:50 PM LEATHER TANNER [facility] U PH 7.0 5.0 - 8.0 11/28/2018 2:50 PM LEATHER TANNER [facility] LEUKOCYTES (U) 1+(A) NEGATIVE 11/28/2018 2:50 PM LEATHER TANNER [facility] NITRITES NEGATIVE NEGATIVE 11/28/2018 2:50 PM LEATHER TANNER [facility] PROTEIN (U) NEGATIVE NEGATIVE 11/28/2018 2:50 PM LEATHER TANNER [facility] URINE GLUCOSE NEGATIVE NEGATIVE 11/28/2018 2:50 PM LEATHER TANNER [facility] KETONES MG/DL (U) TRACE(A) NEGATIVE 11/28/2018 2:50 PM LEATHER TANNER [facility] UROBILINOGEN 0.2 <1.0 EU/DL 11/28/2018 2:50 PM LEATHER TANNER [facility] BILIRUBIN (U) NEGATIVE NEGATIVE 11/28/2018 2:50 PM LEATHER TANNER [facility] BLOOD (U) NEGATIVE NEGATIVE 11/28/2018 2:50 PM LEATHER TANNER [facility] WBC/HPF 5-10(A) 0 - 5 /HPF 11/28/2018 2:50 PM LEATHER TANNER [facility] EPI/HPF MANY /LPF 11/28/2018 2:50 PM LEATHER TANNER [facility] MUCUS PRESENT 11/28/2018 2:50 PM LEATHER TANNER [facility] 11/28/2018 1:38 PM LEATHER TANNER 11/28/2018 2:40 PM LEATHER TANNER us Generic Conversion Md RIZVI URINE ORDERABLES Final Result [facility] [address] [place] [address], * (ABNORMAL) CBC W/DIFF AUTOMATED (11/28/2018 1:35 PM LEATHER TANNER) WBC 13.8(H) 4.5 - 10.8 x10'3/uL 11/28/2018 2:42 PM LEATHER TANNER [facility] RBC 4.00(L) 4.10 - 5.40 x10'6/uL 11/28/2018 2:42 PM [facility] HGB 11.4(L) 12.0 - 16.0 G/DL 11/28/2018 2:42 PM [facility] HCT 34.9(L) 36.0 - 47.0 % 11/28/2018 2:42 PM [facility] MCV 87.3 78.0 - 100.0 FL 11/28/2018 2:42 PM [facility] MCH 28.5 27.0 - 31.0 PG 11/28/2018 2:42 PM [facility] MCHC 32.7(L) 33.0 - 36.0 G/DL 11/28/2018 2:42 PM [facility] RDW 14.7(H) 11.5 - 14.5 % 11/28/2018 2:42 PM [facility] PLT 289 150 - 350 x10'3/uL 11/28/2018 2:42 PM [facility] MPV 10.5(H) 7.4 - 10.4 FL 11/28/2018 2:42 PM [facility] SEG NEUTROPHILS 73.4 % 9 2:42 PM [facility] LYMPHOCYTES 18.3 % 11/28/2018 2:42 PM [facility] MONOCYTES 5.1 % 11/28/2018 2:42 PM [facility] EOSINOPHILS 2.2 % 11/28/2018 2:42 PM [facility] BASOPHILS 0.3 % 11/28/2018 2:42 PM [facility] IMMATURE GRANS % 0.7 % 11/28/19 19 2:42 PM [facility] NRBC 0.0 % 11/28/2018 2:42 PM [facility] ABS. NEUTROPHILS 10.15(H) 1.60 - 8.30 x10'3/uL 11/28/2018 2:42 PM [facility] ABS. LYMPHOCYTES 2.52 0.80 - 4.70 x10'3/uL 11/28/2018 2:42 PM [facility] ABS. MONOCYTES 0.70 0.00 - 1.50 x10'3/uL 11/28/2018 2:42 PM LEATHER TANNER [facility] ABS. EOSINOPHILS 0.30 0.00 - 0.40 x10'3/uL 11/28/2018 2:42 PM LEATHER TANNER [facility] ABS. BASOPHILS 0.04 0.00 - 0.20 x10'3/uL 11/28/2018 2:42 PM [facility] ABS. IMMATURE GRANULOCYTES 0.09(H) 0.00 - 0.03 x10'3/uL 11/28/2018 2:42 PM LEATHER TANNER [facility] ABS. NUCLEATED RBC'S 0.00 0.00 x10'3/uL 11/28/2018 2:42 PM [facility] OTHER (type in comments) 11/28/2018 1:35 PM LEATHER TANNER 11/28/2018 2:39 PM LEATHER TANNER Comment:WHOLE BLOOD SAMPLE us Generic Conversion Md RIZVI LABORATORY Final R esult [facility] [address] [place] [address], * Type and Crossmatch (11/28/2018 1:35 PM LEATHER TANNER) UNITS ORDERED 1 11/28/2018 2:33 PM [facility] ABO/RH O POSITIVE 11/28/2018 3:29 PM [facility] ANTIBODY SCREEN NEGATIVE 9 3:29 PM [facility] SAMPLE EXPIRATION 12/01/2018 11/28/2018 3:29 PM [facility] BLOOD UNIT NUMBER [id number] 11/28/2018 3:29 PM [facility] PRODUCT: PC LEUKOPOOR 11/28/2018 3:29 PM [facility] UNIT DIVISION 00 11/28/2018 3:29 PM [facility] BLOOD UNIT STATUS UNIT RELEASED 12/02/2018 1:52 AM LEATHER TANNER [facility] TRANSFUSION STATUS OK TO TRANSFUSE 11/28/2018 3:29 PM LEATHER TANNER [facility] CROSSMATCH COMPATIBLE 11/28/2018 3:29 PM LEATHER TANNER [facility] OTHER (type in comments) 11/28/2018 1:35 PM LEATHER TANNER 11/28/2018 2:38 PM LEATHER TANNER Comment:SERUM SPECIMEN~ACELL ULAR BLOOD (SERUM OR PLASMA) SPECIMEN us Generic Conversion Md RIZVI BLOOD BANK TEST ORDERAB LES Final Result [facility] [address] [place] [address], [place] [phone] documented in this encounter Visit Diagnoses Diagnosis Encounter for delivery without indication (HHS/HCC) delivery, without mention of indication, unspecified as to episode of care documented in this encounter
--- OUTSIDE RECORDS SUMMARY | 2024-10-27 08:15 | XMS_ITS | Encounter Summary ---
Author Organization [facility] Address [address] [place] [address]. 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
--- OUTSIDE RECORDS SUMMARY | 2024-10-27 08:15 | XMS_ITS | Encounter Summary ---
Author Organization [facility] Address [address] [place] [address]. [place], [place] [address] [place] [address] Care Team Providers Care Drapery Maker Name Role Phone Royer Zhang MD Primary Care Provider Reason for Visit * Reason Comments Arm Pain Encounter Details Date Type Department Care Team (Late st Contact Info) Description 04/03/2019 7:39 PM CDT - 04/03/2019 9:16 PM CDT Emergency [facility] [address] Bernabe Drew MD [address] [place] [address] Arm Pain Discharge Disposition: Home or Self Care [...] on file Legal Sex Female 5:56 PM DISC RULER OPERATOR Gender Identity Not on file Sexual Orientation Not on file documented as of this encounter Last Filed Vital Signs Vital Sign Reading Time Taken Comments Blood Pressure 120/72 04/03/2019 8:51 PM CDT Pulse 67 04/03/2019 8:51 PM CDT Temperature 36.4 ??C (97.5 ??F) 04/03/2019 7:46 PM CD T Respiratory Rate 18 04/03/2019 8:51 PM CDT Oxygen Saturation 100% 04/03/2019 8:51 PM CDT Inhaled Oxygen Concentration - - Weight 74.8 kg (165 lb) 04/03/2019 7:46 PM CDT Height 165.1 cm (5' 5 ) 04/03/2019 7:46 PM CDT Body Mass Index 27.46 04/03/2019 7:46 PM CDT documented in this encounter Discharge Instructions * Attachments The following attachments cannot be sent through Care Everywhere. * Muscle Strain (Greek) documented in this encounter Medications at Time of Discharge traMADol 50 MG tablet 1-2 every 6 hours as needed for pain 20 tablet 04/03/2019 07/14/2019 documented as of this encounter ED Notes * Deedee Miranda - 04/03/2019 8:26 PM CDT ED out to Xray. * Lynne Potts RN - 04/03/2019 8:26 PM CDT PT TO XRAY * Lucinda Nevarez RN - 04/03/2019 7:48 PM CDT States she fell on Wednesday, landed on her left arm. C/o pain to left shoulder radiating down left arm. Bruising noted to forearm and hand. States hands is numb intermittently. * Bernabe Drew MD - 04/03/2019 7:35 PM CDT eMERGENCY dEPARTMENT eNCOUnter I, tia Emmanuel, am personally taking down the notes in the presence of Bernabe Drew MD.?Take no action on this note until reviewed and authenticated??by the physician. CHIEF COMPLAINT Chief Complaint Patient presents with ??? Arm Pain HPI The patient is a 28-year-old female who presents to the ED for evaluation of upper extremity pain related to a fall. The patient states x6 days ago she experienced x1 ground-level fall at which time she landed on her left arm. The patient reports she experienced initial pain to the left elbow but has since developed pain to the posterior left shoulder which radiates down the arm. The patient endorses additional pain and mild edema over the dorsum of the left hand. The patient notes mild tingling of the left forearm and hand. The patient denies head injury, headache, neck injury, neck pain, orLOC. The patient is otherwise in their state of health and no positive complaints were stated upon r [place] of systems. History provided by: Patient and medical records claim benefit specialist used: No ALLERGIES No Known Allergies CURRENT MEDICATIONS Current Outpatient Medications Medication Sig ??? traMADol 50 MG tablet 1-2 every 6 hours as needed for pain PAST MEDICAL HISTORY Past Medical History: Diagnosis Date ??? Depression SURGICAL HISTORY Past Surgical History: Procedure Laterality Date ??? SECTION SOCIAL HISTORY Social History Socioeconomic History ??? Marital status: Single Spouse name: Not on file ??? Number of children: Not on file ??? Years of education: Not on file ??? Highest education level: Not on file Occupational History ??? Not on file Social Needs ??? Financial resource strain: Not on file ??? Food insecurity: Worry: Not on file Inability: Not on file ??? Transportation needs: Medical: Not on file Non-medical: Not on file Tobacco Use ??? Smoking status: Current Every Day Smoker Packs/day: 0.25 Types: Cigarettes ??? Smokeless tobacco: Never Used Substance and Sexual Activity ??? Alcohol use: No Frequency: Never ??? Drug use: No ??? Sexual activity: Not on file Lifestyle ??? Physical activity: Days per week: Not on file Minutes per session: Not on file ??? Stress: Not on file Relationships ??? Social connections: Talks on phone: Not on file Gets together: Not on file Attends anabaptist service: Not on file Active member of club or organization: Not on file Attends meetings of clubs or organizations: Not on file Relationship status: Not on file ??? Intimate partner violence: Fear of current or ex partner: Not on file Emotionally abused: Not on file Physically abused: Not on file Forced sexual activity: Not on file Other Topics Concern ??? Not on file Social History Narrative ??? Not on file FAMILY HISTORY No family history on file. REVIEW OF SYSTEMS Review of Systems Constitutional: Negative. HENT: Negative for head injury. Eyes: Negative. Respiratory: Negative. Cardiovascular: Negative. Gastrointestinal: Negative. Endocrine: Negative. Genitourinary: Negative. Musculoskeletal: Negative for neck pain. Positive for pain over posterior left shoulder with radiation down arm. Positive for pain and edema over dorsum of left hand. Negative for neck injury. Skin: Negative. Allergic/Immunologic: Negative. Neurological: Negative for headaches. Positive for tingling over left forearm and hand. Negative for LOC. Hematological: Negative. Psychiatric/Behavioral: Negative. All other ROS negative unless noted above in HPI. PHYSICAL EXAM Physical Exam Nursing note and vitals reviewed. Filed Vitals: 04/03/19194504/03/192050 BP: 125/78 120/72 Pulse: 76 67 Resp: 20 18 Temp: 97.5 ??F (36.4 ??C) TempSrc: Temporal SpO2: 100% 100% Weight: 74.8 kg (165 lb) Height: 5' 5 (1.651 m) The patient is a well developed and well nourished adult female in no distress, alert and oriented.Limited exam reveals the following: HEENT: Normocephalic. Conjunctiva are clear bilaterally. CHEST: Respirations are easy and unlabored. No accessory muscle use. No respiratory distress. EXT: Soft tissue swelling over the dorsum of the left hand. Tenderness to palpation of left posterior shoulder. Painful ROM of left elbow. NEURO: Alert and oriented x3. Distal neurovascular exam is entirely intact. MENTAL STATUS: Normal affect. SKIN: No rash or significant lesions. EKG RADIOLOGY XR SHOULDER LT 3V Final Result by User, [id number] (04/03 2052) Examination: 3 or more views left shoulder Exam date/time: 04/03/2019 8:38 PM Reason For Exam: Trauma status post fall. Left arm pain Comparison: None Technique: AP, AP posterior oblique views were obtained with internal and external rotation of the humerus. Axillary view also obtained. Findings There is no acute fracture or dislocation. There is anatomic glenohumeral alignment. There is no significant arthritis. The acromioclavicular joint is radiographically unremarkable Bone mineral density is normal. No erosive or destructive changes. Visualized soft tissues are unremarkable. =====IMPRESSION:===== Unremarkable radiographic appearance of the left shoulder. Interpreted By: Shamiak Nava, 04/03/2019 8:50 PM XR ELBOW LT M3V Final Result by User, [id number] (04/03 2051) Examination: 3 views left elbow Exam date/time: 04/03/2019 8:37 PM Reason For Exam: Trauma. Status post fall. Left arm and elbow pain Comparison: None Technique: AP , oblique and lateral radiographs of the left elbow Findings: No acute fracture or dislocation. Alignment is anatomic. There is no elbow effusion. Joint spaces are normal. No arthritis. Normal bone density. Soft tissues are unremarkable. =====IMPRESSION:===== Unremarkable radiographic appearance of the left elbow Interpreted By: Shamika Nava, 04/03/2019 8:49 PM XR HAND LT 3V Final Result by User, [id number] (04/03 2050) Examination: Left hand 3 views Exam date/time: 04/03/2019 8:37 PM Reason For Exam: Trauma. Left and and arm pain following fall Comparison: None Technique: PA, oblique, and lateral views of the left hand were obtained. Findings: No acute fracture or dislocation seen. No other acute injury identified. Alignment is anatomic. Joint spaces are preserved. There is normal bone density. There is no arthropathy. Soft tissues are unremarkable =====IMPRESSION:===== Unremarkable radiographic appearance of the left hand Interpreted By: Shamika aNva, 04/03/2019 8:48 PM LABS No results found for this visit on 04/03/19. ED MEDICATIONS Medications - No data to display PROCEDURES Procedures CONSULTS: ED COURSE & MEDICAL DECISION MAKING MDM Medications - No data to display Discharge Medication List as of 04/03/2019 9:15 PM START taking these medications Details traMADol 50 MG tablet 1-2 every 6 hours as needed for pain, Print Class: Print Pharmacy: [facility] [address] [place] [address] [address] [facility] AT [facility] [address] (Ph #: [phone]) Royer Zhang MD [address] [facility] [phone] In 3 days if not improving FINAL IMPRESSION SNOMED CT(R) 1. Strain of upper arm, left INJURY OF UPPER ARM Royer Zhang MD [address] [facility] [phone] In 3 days if not improving Discharge Medication List as of 04/03/2019 9:15 PM START taking these medications Details traMADol 50 MG tablet 1-2 every 6 hours as needed for pain, Print Robyn Hernandez, 04/03/19, 19:57. Provider Attestation: Portions of this note were transcribed by the scribe. I, Bernabe Drew, personally performed the history, physical exam and medical decision making; and confirmed the accuracy of the information inthe transcribed note. Authenticated by Bernabe Drew MD 04/04/19 0027 documented in this encounter Plan of Treatment Not on file documented as of this encounter Procedures Procedure Name Priority Date/Time Associated Diagnosis Comments XR SHOULDER LT 3V STAT 04/03/2019 8:3 8 PM CDT XR HAND LT 3V STAT 04/03/2019 8:37 PM CDT XR ELBOW LT M3V STAT 04/03/2019 8:37 PM CDT documented in this encounter Results * XR SHOULDER LT 3V (04/03/2019 8:38 PM CDT) Anatomical Region Laterality Modality Shoulder Radiographic Agata ging 04/03/2019 8:50 PM CDT Impressions 04/03/2019 8:51 PM CDT =====IMPRESSION:===== Unremarkable radiographic appearance of the left shoulder. Interpreted By: Shamika Nava, 04/03/2019 8:50 PM Narrative 04/03/2019 8:51 PM CDT Examination: 3 or more views left shoulder Exam date/time: 04/03/2019 8:38 PM Reason For Exam: ??Trauma status post fall. Left arm pain ?? Comparison: None Technique: AP, AP posterior oblique views were obtained with internal and external rotation of the humerus. Axillary view also obtained. Findings ??There is no acute fracture or dislocation. There is anatomic glenohumeral alignment. There is no significant arthritis. The acromioclavicular joint is radiographically unremarkable Bone mineral density is normal. No erosive or destructive changes. Visualized soft tissues are unremarkable. Procedure Note Shamika Nava MD - 04/03/2019 Examination: 3 or more views left shoulder Exam date/time: 04/03/2019 8:38 PM Reason For Exam: Trauma status post fall. Left arm pain Comparison: None Technique: AP, AP posterior oblique views were obtained with internaland external rotation of the humerus. Axillary view also obtained. Findings There is no acute fracture or dislocation. There is anatomic glenohumeral alignment. There is no significant arthritis. The acromioclavicular joint is radiographically unremarkable Bone mineral density is normal. No erosive or destructive changes. Visualized soft tissues are unremarkable. =====IMPRESSION:===== Unremarkable radiographic appearance of the left shoulder. Interpreted By: Shamika Nava, 04/03/2019 8:50 PM Bernabe Drew MD GENERAL IMAGING Final Result * XR HAND LT 3V (04/03/2019 8:37 PM CDT) Anatomical Region Laterality Modality Hand Radiographic Agata ging 04/03/2019 8:48 PM CDT Impressions 04/03/2019 8:49 PM CDT =====IMPRESSION:===== Unremarkable radiographic appearance of the left hand Interpreted By: Shamika Nava, 04/03/2019 8:48 PM Narrative 04/03/2019 8:49 PM CDT Examination: Left hand 3 views Exam date/time: 04/03/2019 8:37 PM Reason For Exam: ??Trauma. Left and and arm pain following fall ?? Comparison: None Technique: PA, oblique, and lateral views of the left hand were obtained. Findings: No acute fracture or dislocation seen. No other acute injury identified. Alignment is anatomic. Joint spaces are preserved. There is normal bone density. There is no arthropathy. Soft tissues are unremarkable Procedure Note Shamika Nava MD - 04/03/2019 Examination: Left hand 3 views Exam date/time: 04/03/2019 8:37 PM Reason For Exam: Trauma. Left and and arm pain following fall Comparison: None Technique: PA, oblique, and lateral views of the left hand wereobtained. Findings: No acute fracture or dislocation seen. No other acute injury identified. Alignment is anatomic. Joint spaces are preserved. There is normal bone density. There is no arthropathy. Soft tissues are unremarkable =====IMPRESSION:===== Unremarkable radiographic appearance of the left hand Interpreted By: Shamika Nava, 04/03/2019 8:48 PM us Bernabe Drew MD GENERAL IMAGING Final Result * XR ELBOW LT M3V (04/03/2019 8:37 PM CDT) Anatomical Region Laterality Modality Elbow Radiographic Agata ging 04/03/2019 8:49 PM CDT Impressions 04/03/2019 8:50 PM CDT =====IMPRESSION:===== Unremarkable radiographic appearance of the left elbow Interpreted By: Shamika Nava, 04/03/2019 8:49 PM Narrative 04/03/2019 8:50 PM CDT Examination: 3 views left elbow Exam date/time: 04/03/2019 8:37 PM Reason For Exam: ??Trauma. Status post fall. Left arm and elbow pain ?? Comparison: None Technique: AP , oblique and lateral radiographs of the left elbow Findings: No acute fracture or dislocation. Alignment is anatomic. There is no elbow effusion. Joint spaces are normal. No arthritis. Normal bone density. Soft tissues are unremarkable. Procedure Note Shamika Nava MD - 04/03/2019 Examination: 3 views left elbow Exam date/time: 04/03/2019 8:37 PM Reason For Exam: Trauma. Status post fall. Left arm and elbow pain Comparison: None Technique: AP , oblique and lateral radiographs of the left elbow Findings: No acute fracture or dislocation. Alignment is anatomic. There is no elbow effusion. Joint spaces are normal. No arthritis. Normal bone density. Soft tissues are unremarkable. =====IMPRESSION:===== Unremarkable radiographic appearance of the left elbow Interpreted By: Shamika Nava, 04/03/2019 8:49 PM Bernabe Drew MD GENERAL IMAGING Final Result documented in this encounter Visit Diagnoses Diagnosis Strain of upper arm, left- Primary Sprain and strain of unspecified site of shoulder and upper arm documented in this encounter Administered Medications Inactive Administered Medications - up to 3 most recent administrations Medication Order MAR Action Action Date Dose Rate Site traMADol (ULTRAM) tablet 50 mg 50 mg, Oral, Every 6 hours PRN, Moderate pain (Scale 4 - 7), 2 doses, Starting on Wed04/03/19 at 2130, Until Wed04/03/19 at 2356, MEDICATION FOR TAKE HOME Given 04/03/2019 9:12 PM CDT 50 mg documented in this encounter Active and Recently Administered Medications Times are shown in CDT. PRN Medication Order 04/01/2019 04/02/2019 04/03/2019 traMADol (ULTRAM) tablet 50 mg 50 mg, Oral, Every 6 hours PRN, Moderate pain (Scale 4 - 7), 2 doses, Starting on Wed04/03/19 at 2130, Until Wed04/03/19 at 2356, MEDICATION FOR TAKE HOME 2111 (Given - Provid er: Lynne Potts RN) documented in this encounter Care Teams Drapery Maker Relationship Specialty Start Date End Date Royer Zhang MD [address] [place] [phone] PCP - General FAMILY PRACTICE 04/03/19 documented as of this encounter
--- OUTSIDE RECORDS SUMMARY | 2024-10-27 08:15 | XMS_ITS | Encounter Summary ---
Author Organization [facility] Address [address] [place] [address]. [place], [place] [address] [place] [address] Care Team Providers Care Spark Tester Name Role Phone Unavailable Primary Care Provider Unavailabl e Encounter Details Date Type Department Care Team (Late st Contact Info) Description 01/29/2010 Abstract [facility] [address] [place] [address] Royer Black MD [address] [place] [address] Social History Tobacco Use Types Packs/Day Years Used Date Smoking Tobacco: Never Assessed Comments Unknown Sex and Gender Information Value Date Recorded Sex Assigned at Not on file Legal Sex Female 5:56 PM OFFICE COPY SELECTOR Gender Identity Not on file Sexual Orientation Not on file documented as of this encounter Plan of Treatment Not on file documented as of this encounter Visit Diagnoses Diagnosis Open wound of hand Open wound of hand except finger(s) alone, without mention of complication documented in this encounter
--- OUTSIDE RECORDS SUMMARY | 2024-10-27 08:15 | XMS_ITS | Encounter Summary ---
Author Organization [facility] Address [address] [place] [address]. [place], [place] [address] [place] [address] Care Team Providers Care Orthopedic Radiologic Technologist Name Role Phone Unavailable Primary Care Provider Unavailabl e Encounter Details Date Type Department Care Team (Late st Contact Info) Description 08/31/1998 Abstract [facility] [address] [place] [address] , Generic Conversion, Social History Tobacco Use Types Packs/Day Years Used Date Smoking Tobacco: Never Assessed Comments Unknown Sex and Gender Information Value Date Recorded Sex Assigned at Not on file Legal Sex Female 5:56 PM REGIONAL DIRECTOR OF ADMISSIONS Gender Identity Not on file Sexual Orientation Not on file documented as of this encounter Plan of Treatment Not on file documented as of this encounter Visit Diagnoses Not on filedocumented in this encounter
--- OUTSIDE RECORDS SUMMARY | 2024-10-27 08:15 | XMS_ITS | Encounter Summary ---
Author Organization [facility] Address [facility] 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
--- OUTSIDE RECORDS SUMMARY | 2024-10-27 08:15 | XMS_ITS | Encounter Summary ---
Author Organization [facility] Address [address] [place] [address]. [place], [place] [address] [place] [address] Care Team Providers Care Newspaper Publisher Name Role Phone Unavailable Primary Care Provider Unavailabl e Encounter Details Date Type Department Care Team (Late st Contact Info) Description 07/02/[address] 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
--- OUTSIDE RECORDS SUMMARY | 2024-10-27 08:15 | XMS_ITS | Encounter Summary ---
Author Organization [facility] Address [address] [place] [address]. [place], [place] [address] [place] [address] Care Team Providers Care Dry Goods Clerk Name Role Phone Royer Zhang MD Primary Care Provider [phone] Reason for Referral * Imaging (Emergency) - Closed Specialty Diagnoses / Procedures Referred By Gera de león Referred To Contact RADIOLOGY Diagnoses Encounter for assessment for deep vein thrombosis (DVT) Procedures USV LEIF DUPLEX LOW EXT RT Ryland Kauffman MD [facility] [address] [address] Phone: tel: fax: Referral ID Status Reason Start Date Expiration Date Visits Re quested Visits Authorized [id number] Closed 07/02/2019 08/01/2020 1 1 Reason for Visit * Imaging (Emergency) - Closed Specialty Diagnoses / Procedures Referred By Gera de león Referred To Contact RADIOLOGY Diagnoses Encounter for assessment for deep vein thrombosis (DVT) Procedures USV LEIF DUPLEX LOW EXT RT Ryland Kauffman MD [facility] [address] [address] Phone: tel: fax: Referral ID Status Reason Start Date Expiration Date Visits Re quested Visits Authorized [id number] Closed 07/02/2019 08/01/2020 1 1 Encounter Details Date Type Department Care Team (Latest Contact Info) Description 07/02/2019 9:15 AM CDT - 07/02/2019 11:59 PM [address] Hospital Encounter [facility] [address] [place] [address] Ryland Kauffman MD 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 Gender Identity Not on file Sexual Orientation Not on file documented as of this encounter Medications at Time of Discharge traMADol 50 MG tablet 1-2 every 6 hours as needed for pain 20 tablet 04/03/2019 07/14/2019 documented as of this encounter Plan of Treatment Not on file documented as of this encounter Procedures Procedure Name Priority Date/Time Associated Diagnosis Comments USV LEIF DUPLEX LOW EXT RT STAT 07/02/2019 9:37 AM CDT Encounter for assessment for deep vein thrombosis (DVT) documented in this encounter Results * USV LEIF DUPLEX LOW EXT RT (07/02/2019 9:37 AM CDT) Anatomical Region Laterality Modality Extremity Ultrasound 07/02/2019 9:34 AM CDT Narrative 07/02/2019 9:34 AM CDT RIGHT LOWER EXTREMITY VENOUS ULTRASOUND Clinical history: Lower extremity swelling. High-resolution grayscale and color Doppler ultrasound was performed over the veins of the right lower extremity. The obtained images are reviewed without prior studies available for comparison. FINDINGS: The obtained images demonstrate normal compressibility, augmentation, and color flow throughout. There is no evidence of deep venous thrombosis. IMPRESSION; No evidence of deep venous thrombosis. Interpreted By: Jose Bradshaw MD, 07/02/2019 9:34 AM Procedure Note Jose Bradshaw MD - 07/02/2019 RIGHT LOWER EXTREMITY VENOUS ULTRASOUND Clinical history: Lower extremity swelling. High-resolution grayscale and color Doppler ultrasound was performedover the veins of the right lower extremity. The obtained images are reviewed without prior studies available for comparison. FINDINGS: The obtained images demonstrate normal compressibility, augmentation,and color flow throughout. There is no evidence of deep venous thrombosis. IMPRESSION; No evidence of deep venous thrombosis. Interpreted By: Jose Bradshaw MD, 07/02/2019 9:34 AM us Ryland Kauffman MD VAS Final Resul t documented in this encounter Visit Diagnoses Diagnosis Encounter for assessment for deep vein thrombosis (DVT) documented in this encounter Care Teams Dry Goods Clerk Relationship Specialty Start Date End Date Royer Zhang MD [address] [place] [phone] PCP - General FAMILY PRACTICE 04/03/19 documented as of this encounter
--- OUTSIDE RECORDS SUMMARY | 2024-10-27 08:15 | XMS_ITS | Encounter Summary ---
Author Organization [facility] Address [address] [place] [address]. 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 No / Unsure 08/08/2020 6:01 PM CDT documented as of this encounter Plan of Treatment Not on file documented as of this encounter Visit Diagnoses Not on filedocumented in this encounter Care Teams Caseworker Intake Relationship Specialty Start Date End Date Royer Zhang MD [address] [place] [phone] PCP - General FAMILY PRACTICE 04/03/19 documented as of this encounter
--- OUTSIDE RECORDS SUMMARY | 2024-10-27 08:15 | XMS_ITS | Encounter Summary ---
Author Organization [facility] Address [facility] 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
--- OUTSIDE RECORDS SUMMARY | 2024-10-27 08:15 | XMS_ITS | Encounter Summary ---
Author Organization [facility] Address [facility] [facility]. [place], [place] [address] [place] [id number] Care Team Providers Care Integration Engineer Name Role Phone Unavailable Primary Care Provider Unavailabl e Encounter Details Date Type Department Care Team (Late st Contact Info) Description 12/07/2017 Abstract [facility] [address] [place] [address] Arcelia Goodwin MD [address] [place] [address] Social History Tobacco Use Types Packs/Day Years Used Date Smoking Tobacco: Never Assessed Comments Unknown Sex and Gender Information Value Date Recorded Sex Assigned at Not on file 

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
--- OUTSIDE RECORDS SUMMARY | 2024-10-27 08:15 | XMS_ITS | Encounter Summary ---
Author Organization [facility] Address [address] [place] [address]. [place] [address] [place] [address] Care Team Providers Care Payroll Officer Name Role Phone Royer Zhang MD Primary Care Provider [phone] Reason for Referral * Imaging (Emergency) - Closed Specialty Diagnoses / Procedures Referred By Contelisabeth t Referred To Contact RADIOLOGY Procedures US OB <14WKS TA Guille Abebe MD Phone: tel: fax: Referral ID Status Reason Start Date Expiration Date Visits Re quested Visits Authorized [id number] Closed 08/08/2020 09/08/2021 1 1 Reason for Visit * Reason Comments Medical Problem Encounter Details Date Type Department Care Team (Late st Contact Info) Description 08/08/2020 6:08 PM CDT - 08/08/2020 9:25 PM CDT Emergency [facility] [address] [place] [address] [place] [address] Guille Abebe MD [address] [place] [address] [id number] Medical Problem Discharge Disposition: Home or Self Care (Routine [...] on file Legal Sex Female 5:56 PM [employer] Gender Identity Not on file Sexual Orientation Not on file COVID-19 Exposure Response Date Recorded In the last month, have you been in contact with someone who was confirmed or suspected to have Coronavirus / COVID-19? No / Unsure 08/08/2020 6:01 PM CDT documented as of this encounter Last Filed Vital Signs Vital Sign Reading Time Taken Comments Blood Pressure 114/87 08/08/2020 8:00 PM CDT Pulse 103 08/08/2020 6:09 PM CDT Temperature 37.2 ??C (99 ??F) 08/08/2020 7:50 PM CDT Respiratory Rate 16 08/08/2020 6:09 PM CDT Oxygen Saturation 100% 08/08/2020 8:00 PM CDT Inhaled Oxygen Concentration - - Weight 73.5 kg (162 lb) 08/08/2020 6:09 PM CDT Height 165.1 cm (5' 5 ) 08/08/2020 6:09 PM CDT Body Mass Index 26.96 08/08/2020 6:09 PM CDT documented in this encounter Discharge Instructions * Discharge Instructions* Guilel Abebe MD - 08/08/2020 9:16 PM CDT It is recommended that you be admitted due to and bad urine infection. You are at risk for miscarriage, disability and . Antibiotic by mouth may not treat your infection. See your doctor as soon as possible. Return anytime. * Attachments The following attachments cannot be sent through Care Everywhere. * How to Adapt to Physical Changes During (Ivorian) * Shortness of Breath (Dyspnea) Discharge Instructions (Ivorian) * Urinary Tract Infections in Adults (Ivorian) * Drug Abuse and Drug Addiction Discharge Instructions (Ivorian) documented in this encounter Medications at Time of Discharge cephALEXin (KEFLEX) 500 MG capsule Take 1 capsule (500 mg total) by mouth 3 (three) times daily for 10 days. 30 capsule 08/08/2020 08/18/2020 documented as of this encounter ED Notes * Guille Abebe MD - 08/08/2020 9:25 PM CDTAssociated Order(s): EKG Reading Chief Complaint Chief Complaint Patient presents with ??? Medical Problem History of Present Illness 29-year-old female with complaint of low back pain and shortness of breath for a week. Patient denies any injuries to her back. Patient denies any recent sick contacts. Patient denies cough denies incontinence denies fever denies diarrhea. Patient denies being on control pills. Patient's lastmenstrual period was over 1 month. Patient also complains some mild right abdominal pain. Pain is wo rse on the left back compared to the right. Symptoms are constant and moderate to severe. Medical History ALLERGIES: Allergies Allergen Reactions ??? Penicillins Unknown MEDICATIONS: Prior to Admission medications Medication Sig Start Date End Date Taking? Authorizing Provider cephALEXin (KEFLEX) 500 MG capsule Take 1 capsule (500 mg total) by mouth 3 (three) times daily for10 days. 08/08/20 08/18/20 Yes Guille Abebe MD PAST MEDICAL HISTORY: Past Medical History: Diagnosis Date ??? Depression PAST SURGICAL HISTORY: Past Surgical History: Procedure Laterality Date ??? SECTION FAMILY HISTORY: No family history on file. SOCIAL HISTORY: Social History Tobacco Use ??? Smoking status: Current Every Day Smoker Packs/day: 0.50 Types: Cigarettes ??? Smokeless tobacco: Never Used Substance Use Topics ??? Alcohol use: No Frequency: Never ??? Drug use: No Review of Systems Review of Systems Constitutional: Negative for chills and fever. HENT: Negative for voice change. Respiratory: Positive for shortness of breath. Negative for wheezing. Cardiovascular: Negative for chest pain and leg swelling. Gastrointestinal: Positive for abdominal pain. Musculoskeletal: Positive for back pain. Skin: Negative for color change. Neurological: Negative for speech difficulty. Psychiatric/Behavioral: Negative for agitation. All other systems reviewed and are negative. Physical Exam Filed Vitals: 08/08/20 1900 08/08/20 1930 08/08/20 1950 08/08/201999 BP: 103/69 116/82 114/87 Pulse: Resp: Temp: 99 ??F (37.2 ??C) TempSrc: Oral SpO2: 100% 100% 100% Weight: Height: Physical Exam Constitutional: Appearance: She is well-developed. HENT: Head: Atraumatic. Eyes: Extraocular Movements: Extraocular movements intact. Neck: Musculoskeletal: Neck supple. Comments: Normal inspection Cardiovascular: Rate and Rhythm: Tachycardia present. Pulmonary: Effort: No respiratory distress. Breath sounds: Normal breath sounds. No stridor. No wheezing. Abdominal: Palpations: There is no mass. Tenderness: There is abdominal tenderness. There is no rebound. Comments: Tender in the right middle quadrant Musculoskeletal: Normal range of motion. General: No tenderness. Right lower leg: No edema. Left lower leg: No edema. Comments: Lower extremities-no pitting edema, no calf tenderness, legs are symmetrical Back-tender in the left lumbar muscle with palpation Skin: General: Skin is dry. Comments: Scattered excoriations noted in the extremities Neurological: General: No focal deficit present. Mental Status: She is alert. Motor: No weakness. Psychiatric: Mood and Affect: Mood normal. Diagnostic Studies / Procedures ELECTROCARDIOGRAMS: Results for orders placed or performed during the hospital encounter of 08/08/20 ECG [address] 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: DEANDRE : 1990 Requested By: GUILLE ABEBE Order Number: [id number] Reading MD: Kashif Braswell Measurements Intervals [place] Rate: 92 P: 62 TX: 146 QRS: 16 QRSD: 69 T: 30 QT: 339 QTc: 420 Interpretive Statements SINUS RHYTHM POSSIBLE RIGHT VENTRICULAR CONDUCTION DELAY LABORATORY STUDIES: Results for orders placed or performed during the hospital encounter of 08/08/20 URINALYSIS Result Value Ref Range COLOR (U) YELLOW TRANSPARENCY CLOUDY Specific [place] (U) 1.025 1.000 - 1.025 U PH 6.0 5.0 - 8.0 LEUKOCYTE ESTERASE 1+ (A) NEGATIVE NITRITES POSITIVE (A) NEGATIVE PROTEIN (U) NEGATIVE NEGATIVE URINE GLUCOSE NEGATIVE NEGATIVE U KETONES NEGATIVE NEGATIVE UROBILINOGEN 0.2 <1.0 EU/DL BILIRUBIN (U) NEGATIVE NEGATIVE BLOOD 2+ (A) NEGATIVE WBC/HPF FILLED FIELD (A) 0 - 5 /HPF EPI/HPF MANY /LPF BACTERIA (URINE) 3+ /HPF COMMENT FEW WBC CLUMPS SEEN ON MICROSCOPICS TEST URINE Result Value Ref Range PREG TEST POSITIVE Specific [place] (U) 1.025 DRUG SCREEN RAPID Result Value Ref Range CANNABINOIDS SCREEN (U) NEGATIVE NEGATIVE PHENCYCLIDINE PCP (U) NEGATIVE NEGATIVE COCAINE METABOLITES (U) NEGATIVE NEGATIVE METHAMPHETAMINE (U) POSITIVE (A) NEGATIVE OPIATE SCREEN (U) NEGATIVE NEGATIVE AMPHETAMINE (U) POSITIVE (A) NEGATIVE BENZODIAZEPINES SCREEN (U) NEGATIVE NEGATIVE TRICYCLIC ANTIDEPRESSANT SCREEN (U) NEGATIVE NEGATIVE METHADONE (U) NEGATIVE NEGATIVE BARBITURATES SCREEN (U) NEGATIVE NEGATIVE OXYCODONE SCREEN (U) NEGATIVE NEGATIVE PROPOXYPHENE SCREEN (U) NEGATIVE NEGATIVE URINE TOX COMMENT THIS TEST METHODOLOGY IS DESIGNED AND OFFERED A RAPID TURNAROUND, QUALITATIVE SCREENING PROCEDURE TO AID IN THE IMMEDIATE MEDICAL ASSESSMENT OF PATIENTS SUSPECTED OF SUBSTANCE ABUSE. CBC W/DIFF AUTOMATED Result Value Ref Range WBC 9.5 4.5 - 10.8 x10'3/uL RBC 4.10 4.10 - 5.40 x10'6/uL HGB 12.7 12.0 - 16.0 G/DL HCT 35.7 (L) 36.0 - 47.0 % MCV 87.1 78.0 - 100.0 FL MCH 31.0 27.0 - 31.0 PG MCHC 35.6 33.0 - 36.0 G/DL RDW 12.6 11.5 - 14.5 % PLT 250 150 - 350 x10'3/uL MPV 9.3 7.4 - 10.4 FL Differential Comment NORMAL REFERENCE RANGE NOT ESTABLISHED FOR THE PROPORTIONAL LEUKOCYTE DIFFERENTIAL. SEG NEUTROPHILS 75.3 % LYMPHOCYTES 14.6 % MONOCYTES 7.2 % EOSINOPHILS 2.4 % BASOPHILS 0.2 % IMMATURE GRANS 0.3 % NRBC 0.0 % ABS. NEUTROPHILS 7.14 1.60 - 8.30 x10'3/uL ABS. LYMPHOCYTES 1.39 0.80 - 4.70 x10'3/uL ABS. MONOCYTES 0.68 0.00 - 1.50 x10'3/uL ABS. EOSINOPHILS 0.23 0.00 - 0.40 x10'3/uL ABS. BASOPHILS 0.02 0.00 - 0.20 x10'3/uL ABS. IMMATURE GRANULOCYTES 0.03 0.00 - 0.03 x10'3/uL ABS. NUCLEATED RBC'S 0.00 0.00 x10'3/uL COMPREHENSIVE METABOLIC PANEL Result Value Ref Range SODIUM 137 136 - 145 MMOL/L POTASSIUM 3.6 3.5 - 5.1 MMOL/L CHLORIDE S/P/B 101 98 - 107 MMOL/L CO2 26.5 21.0 - 32.0 MMOL/L GLUCOSE 97 70 - 99 MG/DL BUN 8 6 - 24 MG/DL CREATININE S/P/B 0.69 0.55 - 1.02 MG/DL CALCIUM 9.0 8.4 - 10.5 MG/DL BILIRUBIN TOTAL S/P/B 0.3 0.2 - 1.0 MG/DL ALKALINE PHOSPHATASE S/P/B 86 37 - 98 U/L AST 17 15 - 37 U/L ALT 23 14 - 59 U/L TOTAL PROTEIN S/P/B 7.1 6.4 - 8.2 G/DL ALBUMIN S/P/B 3.0 (L) 3.4 - 5.0 G/DL ANION GAP 9.5 5.0 - 15.0 MMOL/L OSMOLALITY (CALC) 282 MOSM/KG eGFR Non-Afr. Amer. >90 >89 ML/MIN/1.73 M2 eGFR Afr. Amer. >90 >89 ML/MIN/1.73 M2 GFR NOTES GFR REFERENCES: LIPASE Result Value Ref Range LIPASE 108 73 - 393 UNITS/L HCG QUANT (SERUM)-CHORIONIC GONADOTROPIN Result Value Ref Range HCG, QUANTITATIVE 114,007 (H) 0.0 - 6.0 MIU/ML D-DIMER, QUANTITATIVE Result Value Ref Range D-DIMER 837 (H) <501 ng[FEU]/mL TROPONIN, QUANT Result Value Ref Range TROPONIN I <0.017 0.000 - 0.056 ng/mL. IMAGING STUDIES US OB <14WKS TA Final Result by User, [id number] (08/08 2051) . EXAMINATION: COMPLETE UTERUS LESS THAN 14 WEEKS. CLINICAL INDICATION: 29-year-old gravid female presents with right-sided flank pain radiating into the back and midsternal chest pain. 6 para 5. LMP: Unsure positive urine test. Beta hCG: Not available. TECHNIQUE: Ultrasound examination of the pelvis was performed utilizing transabdominal approach to assess grayscale appearance, color Doppler flow and spectral waveform characteristics COMPARISON: None with this . FINDINGS: Uterus: The uterus measures 13.0 x 7.6 x 9.9 cm. No myometrial masses. Endometrial cavity: The endometrial cavity contains a well formed normally placed gestational sac, yolk sac and a pole with visible and documented cardiac activity consistent with viable intrauterine . Intrauterine gestational sac: Present Number of fetuses: One Mean crown-rump length: 4.04 cm. 11 weeks 0 day. Yolk sac: Present. Measures 6.3 mm cardiac activity: 188 bpm (meets criteria for tachycardia, greater than 170 bpm) No subchorionic hemorrhage is appreciated Gestational age too early for detailed anatomic evaluation Ultrasound calculated gestational age 11 weeks 0 day Ultrasound calculate estimated date delivery 02/27/2021 Right ovary: Not visualized Left ovary: Not visualized Scanning through right and left adnexa fails to demonstrate complex cystic or solid mass is seen in either adnexa that would suggest concomitant ectopic gestation. Small amount of free fluid in the pelvis. IMPRESSION: 1. Single viable intrauterine with documented cardiac activity at 188 bpm 2. Ultrasound calculated gestational age 11 weeks 0 day and the estimated date delivery 02/27/2021. 3. Small amount of free fluid in the pelvis 4. As above with documented heart rate is tachycardic. 5. Consider referral to high pressure cleaner. Interpreted By: Roz Aguillon DO, 08/08/2020 8:39 PM XR CHEST PORTABLE Final Result by User, [id number] (08/08 1954) Examination: XR CHEST PORTABLE Exam time: 08/08/2020 7:32 PM Clinical history: Shortness of breath and midsternal chest pain. Comparison: 07/02/2014 Technique: Portable view of the chest Findings: Cardiac silhouette, mediastinal contours, and pulmonary vasculature are within normal limits. No focal consolidation. No pleural effusion. No pneumothorax. Visualized osseous structures are acutely unremarkable. IMPRESSION: No radiographic evidence of active chest disease. The attending radiologist has reviewed the image(s) and agrees with the content of this report. Dictated By: Bulmaro Joseph on 08/08/2020 7:38 PM Interpreted By: Bulmaro Joseph, 08/08/2020 7:38 PM EKG Reading Date/Time: 08/09/2020 12:52 AM Performed by: Guille Abebe MD Authorized by: Guille Abebe MD Interpreted by ED physician: no specific st-t changed. Rhythm: sinus rhythm Rate: normal Clinical impression: non-specific ECG ED Course / Medical Decision Making MDM Number of Diagnoses or Management Options 11 weeks gestation of : new and requires workup Drug abuse (CMS/HCC): new and does not require workup Dyspnea, unspecified type: new and requires workup Urinary tract infection without hematuria, site unspecified: new and requires workup Amount and/or Complexity of Data Reviewed Clinical lab tests: reviewed Tests in the radiology section of CPT??: reviewed Risk of Complications, Morbidity, and/or Mortality Presenting problems: high Diagnostic procedures: high Management options: high Patient Progress Patient progress: stable Clinical Impression Urinary tract infection without hematuria, site unspecified (Primary) 11 weeks gestation of Dyspnea, unspecified type Drug abuse (CMS/HCC) Disposition: Discharge 9 PM admission was recommended, patient refused, patient was alert and oriented x3 with competency and capacity, patient articulated understanding of risk including miscarriage disability and , discharge instruction was given to the patient, patient will be discharged on Keflex but was told this may not help her condition because the recommendation is admission Guille Abebe MD 08/09/20 0056 * Shelly Conrad RN - 08/08/2020 6:17 PM CDTSummary: . Pt arrives Via pov, c/o bilateral low back and side painx 7-8days Has been Sob with fatigue and hot and cold flashes x 10days denies cough. Pt also states she developed a rash on her arms as well. documented in this encounter Plan of Treatment Not on file documented as of this encounter Procedures Procedure Name Priority Date/Time Associated Diagnosis Comments ELECTROCARDIOGRAM REPORT Routine 020 9:25 PM CDT US OB <14WKS TA STAT 08/08/2020 8:38 PM CDT XR CHEST PORTABLE STAT 08/08/2020 7:3 2 PM CDT COMPREHENSIVE METABOLIC PANEL STAT 08/08/2020 6:40 PM CDT D-DIMER, QUANTITATIVE STAT 08/08/2020 6:40 PM CDT HCG QUANT (SERUM)-CHORIONIC GONADOTROPIN STAT 08/08/2020 6:40 PM CDT CBC W/DIFF AUTOMATED STAT 08/08/2020 6:40 PM CDT TROPONIN, QUANT STAT 08/08/2020 6:40 PM CDT LIPASE STAT 08/08/2020 6:40 PM CDT ECG 12-LEAD STAT 08/08/2020 6:35 PM CDT DRUG SCREEN RAPID STAT 08/08/2020 6:1 2 PM CDT HC URINALYSIS AUTO W/MICRO STAT 08/08/2020 6:12 PM CDT TEST URINE STAT 08/08/2020 6:12 PM CDT URINE BACTERIA CULTURE Routine 0 6:12 PM CDT documented in this encounter Results * EKG Reading (08/08/2020 9:25 PM CDT) Guille Brar MD - 08/08/2020 9:25 PM CDT Guille Abebe MD ? 08/09/2020 12:56 AM EKG Reading Date/Time: 08/09/2020 12:52 AM Performed by: Guille Abebe MD Authorized by: Guille Abebe MD Interpreted by ED physician: no specific st-t changed. Rhythm: sinus rhythm Rate: normal Clinical impression: non-specific ECG us Guille Abebe MD [place] [facility] S Final Result * US OB <14WKS TA (08/08/2020 8:38 PM CDT) Anatomical Region Laterality Modality Abdomen Ultrasound 08/08/2020 8:39 PM CDT Impressions 08/08/2020 8:49 PM CDT IMPRESSION: 1. ??Single viable intrauterine with documented cardiac activity at 188 bpm 2. ??Ultrasound calculated gestational age 11 weeks 0 day and the estimated date delivery 02/27/2021. 3. ??Small amount of free fluid in the pelvis 4. ??As above with documented heart rate is tachycardic. 5. ??Consider referral to high pressure cleaner. Interpreted By: Roz Aguillon DO, 08/08/2020 8:39 PM Narrative 08/08/2020 8:49 PM CDT . ??EXAMINATION: COMPLETE UTERUS LESS THAN 14 WEEKS. CLINICAL INDICATION: 29-year-old gravid female presents with right-sided flank pain radiating into the back and midsternal chest pain. 6 para 5. ??LMP: Unsure positive urine test. ??Beta hCG: Not available. TECHNIQUE: Ultrasound examination of the pelvis was performed utilizing transabdominal approach to assess grayscale appearance, color Doppler flow and spectral waveform characteristics COMPARISON: None with this . FINDINGS: Uterus: The uterus measures 13.0 x 7.6 x 9.9 cm. ??No myometrial masses. Endometrial cavity: The endometrial cavity contains a well formed normally placed gestational sac, yolk sac and a pole with visible and documented cardiac activity consistent with viable intrauterine . Intrauterine gestational sac: Present Number of fetuses: One Mean crown-rump length: 4.04 cm. ??11 weeks 0 day. Yolk sac: Present. ??Measures 6.3 mm cardiac activity: 188 bpm (meets ??criteria for tachycardia, greater than 170 bpm) No subchorionic hemorrhage is appreciated Gestational age too early for detailed anatomic evaluation Ultrasound calculated gestational age 11 weeks 0 day Ultrasound calculate estimated date delivery 02/27/2021 Right ovary: Not visualized Left ovary: Not visualized Scanning through right and left adnexa fails to demonstrate complex cystic or solid mass is seen in either adnexa that would suggest concomitant ectopic gestation. Small amount of free fluid in the pelvis. Procedure Note Roz Aguillon MD - 08/08/2020 . EXAMINATION: COMPLETE UTERUS LESS THAN 14 WEEKS. CLINICAL INDICATION: 29-year-old gravid female presents with right-sided flank pain radiatinginto the back and midsternal chest pain. 6 para 5. LMP: Unsure positive urine test. Beta hCG:Not available. TECHNIQUE: Ultrasound examination of the pelvis was performed utilizingtransabdominal approach to assess grayscale appearance, color Doppler flowand spectral waveform characteristics COMPARISON: None with this . FINDINGS: Uterus: The uterus measures 13.0 x 7.6 x 9.9 cm. No myometrial masses. Endometrial cavity: The endometrial cavity contains a well formed normallyplaced gestational sac, yolk sac and a pole with visible anddocumented cardiac activity consistent with viable intrauterinepregnancy. Intrauterine gestational sac: Present Number of fetuses: One Mean crown-rump length: 4.04 cm. 11 weeks 0 day. Yolk sac: Present. Measures 6.3 mm cardiac activity: 188 bpm (meets criteria for tachycardia,greater than 170 bpm) No subchorionic hemorrhage is appreciated Gestational age too early for detailed anatomic evaluation Ultrasound calculated gestational age 11 weeks 0 day Ultrasound calculate estimated date delivery 02/27/2021 Right ovary: Not visualized Left ovary: Not visualized Scanning through right and left adnexa fails to demonstrate complex cysticor solid mass is seen in either adnexa that would suggest concomitantectopic gestation. Small amount of free fluid in the pelvis. IMPRESSION: 1. Single viable intrauterine with documented cardiac activityat 188 bpm 2. Ultrasound calculated gestational age 11 weeks 0 day and the estimateddate delivery 02/27/2021. 3. Small amount of free fluid in the pelvis 4. As above with documented heart rate is tachycardic. 5. Consider referral to high pressure cleaner. Interpreted By: Roz Aguillon DO, 08/08/2020 8:39 PM Guille Abebe MD ULTRASOUND Final Result * XR CHEST PORTABLE (08/08/2020 7:32 PM CDT) Anatomical Region Laterality Modality Chest Radiographic Agata ging 08/08/2020 7:38 PM CDT Impressions 08/08/2020 7:53 PM CDT IMPRESSION: No radiographic evidence of active chest disease. The attending radiologist has reviewed the image(s) and agrees with the content of this report. Dictated By: Bulmaro Joseph on 08/08/2020 7:38 PM Interpreted By: Bulmaro Joseph, 08/08/2020 7:38 PM Narrative 08/08/2020 7:53 PM CDT Examination: XR CHEST PORTABLE Exam time: 08/08/2020 7:32 PM Clinical history: Shortness of breath and midsternal chest pain. Comparison: 07/02/2014 Technique: Portable view of the chest Findings: Cardiac silhouette, mediastinal contours, and pulmonary vasculature are within normal limits. No focal consolidation. No pleural effusion. No pneumothorax. Visualized osseous structures are acutely unremarkable. Procedure Note Rambo Montgomery MD - 08/08/2020 Examination: XR CHEST PORTABLE Exam time: 08/08/2020 7:32 PM Clinical history: Shortness of breath and midsternal chest pain. Comparison: 07/02/2014 Technique: Portable view of the chest Findings: Cardiac silhouette, mediastinal contours, and pulmonary vasculature are within normal limits. No focal consolidation. No pleural effusion. No pneumothorax. Visualized osseous structures are acutely unremarkable. IMPRESSION: No radiographic evidence of active chest disease. The attending radiologist has reviewed the image(s) and agrees with the content of this report. Dictated By: Bulmaro Joseph on 08/08/2020 7:38 PM Interpreted By: Bulmaro Joseph, 08/08/2020 7:38 PM Guille Abebe MD GENERAL IMAGING Final Result * TROPONIN, QUANT (08/08/2020 6:40 PM CDT) TROPONIN I <0.017 0.000 - 0.056 ng/mL. 08/08/2020 7:07 PM CDT [facility] Comment: ALTHOUGH VALUES OVER 0.056 ARE CONSIDERED ABNORMAL AND REPRESENT MYOCARDIAL DAMAGE,A CUTOFF OF 0.600 HAS BEEN RECOMMENDED REPRESENTING ACUTE MYOCARDIAL INFARCTION. 08/08/2020 6:40 PM CDT us Guille Abebe MD LABORATORY Final Result Performing Organization Address [facility] de Phone Number [facility] [address] [place] [address], * (ABNORMAL) D-DIMER, QUANTITATIVE (08/08/2020 6:40 PM CDT) D-DIMER 837(H) <501 ng{FEU}/mL 08/08/2020 6:57 PM CDT [facility] Comment: A D DIMER RESULT LESS THAN OR EQUAL TO 500 NG/ML FEU HAS A NEGATIVE PREDICTIVE VALUE GREATER THAN 95% FOR THE EXCLUSION OF ACUTE PULMONARY EMBOLISM OR DEEP VEIN THROMBOSIS WHEN THERE IS LOW TO MODERATE PRETEST PROBABILITY. 08/08/2020 6:40 PM CDT us Guille Abebe MD LABORATORY Final Result Performing Organization Address [facility] de Phone Number [facility] [address] [place] [address], * (ABNORMAL) HCG QUANT (SERUM)-CHORIONIC GONADOTROPIN (08/08/2020 6:40 PM CDT) HCG QUANTITATIVE 114,007(H ) 0.0 - 6.0 MIU/ML 08/08/2020 7:26 PM CDT [facility] Comment: WEEKS OF ? REFERENCE RANGES NON- FEMALE ?0-6 ? 0.2 - 1 ? 5 - 50 ? 1 - 2 ? 50 - 500 ? 2 - 3 ? 100 - 5000 ? 3 - 4 ? 500 - 10,000 ? 4 - 5 ? 1000 - 50,000 ? 5 - 6 ? 10,000 - 100,000 ? 6 - 8 ? 15,000 - 200,000 ? 2 - 3 MONTHS ?10,000 - 100,000 LOW LEVEL HCG VALUES >25 MIU/ML MAY BE INDICATIVE OF EARLY . WHEN BORDERLINE RESULTS ARE ENCOUNTERED, REPEAT TESTING AT 48 HOURS MAY BE INDICATED. 08/08/2020 6:40 PM CDT us Guille Abebe MD LABORATORY Final Result Performing Organization Address [facility] de Phone Number [facility] [address] [place] [address], * LIPASE (08/08/2020 6:40 PM CDT) LIPASE 108 73 - 393 UNITS/L 08/08/2020 7:34 PM CDT [facility] 08/08/2020 6:40 PM CDT us Guille Abebe MD LABORATORY Final Result Performing Organization Address [facility] de Phone Number [facility] [address] [place] [address], * (ABNORMAL) COMPREHENSIVE METABOLIC PANEL (08/08/2020 6:40 PM CDT) SODIUM S/P/B 137 136 - 145 MMOL/L 08/08/2020 7:26 PM CDT [facility] POTASSIUM S/P/B 3.6 3.5 - 5.1 MMOL/L 08/08/2020 7:26 PM CDT [facility] CHLORIDE S/P/B 101 98 - 107 MMOL/L 08/08/2020 7:26 PM CDT [facility] CO2 26.5 21.0 - 32.0 MMOL/L 08/08/2020 7:26 PM T [facility] GLUCOSE 97 70 - 99 MG/DL 08/08/2020 7:26 PM T [facility] Comment: FASTING GLUCOSE 100 TO 125 MG/DL IS CONSISTENT WITH IMPAIRED FASTING GLUCOSE. FASTING GLUCOSE >125 MG/DL IS CONSISTENT WITH DIABETES. RANDOM GLUCOSE >200 MG/DL WITH HYPERGLYCEMIC SYMPTOMS IS CONSISTENT WITH DIABETES. PER ADA GUIDELINES BUN 8 6 - 24 MG/DL 08/08/2020 7:26 PM CDT [facility] CREATININE S/P/B 0.69 0.55 - 1.02 MG/DL 08/08/2020 7:26 PM T [facility] CALCIUM S/P/B 9.0 8.4 - 10.5 MG/DL 08/08/2020 7:26 PM T [facility] BILIRUBIN TOTAL S/P/B 0.3 0.2 - 1.0 MG/DL 08/08/2020 7:26 PM T [facility] Comment: THIS ASSAY IS NOT RECOMMENDED FOR PATIENTS UNDERGOING TREATMENT WITH ELTROMBOPAG DUE TO THE POTENTIAL FOR FALSELY ELEVATED RESULTS. ALKALINE PHOSPHATASE S/P/B 86 37 - 98 U/L 08/08/2020 7:26 PM T [facility] AST 17 15 - 37 U/L 08/08/2020 7:26 PM T [facility] ALT 23 14 - 59 U/L 08/08/2020 7:26 PM T [facility] TOTAL PROTEIN S/P/B 7.1 6.4 - 8.2 G/DL 08/08/2020 7:26 PM T [facility] ALBUMIN S/P/B 3.0(L) 3.4 - 5.0 G/DL 08/08/2020 7:26 PM T [facility] ANION GAP 9.5 5.0 - 15.0 MMOL/L 08/08/2020 7:26 PM T [facility] OSMOLALITY (CALC) 282 MOSM/KG 020 7:26 PM CDT [facility] Comment:REFERENCE RANGE NOT ESTABLISHED EGFR NON-AFR. AMER. >90 >89 ML/MIN/1. 73 M2 08/08/2020 7:26 PM CDT [facility] EGFR AFR. AMER. >90 >89 ML/MIN/1. 73 M2 08/08/2020 7:26 PM CDT [facility] GFR NOTES GFR REFERENCE S: 08/08/2020 7:26 PM CDT [facility] Comment: THE ESTIMATED GFR IS CALCULATED USING THE 2009 CKD-EPI EQUATION. THE FOLLOWING CATEGORIES FOR GRADING RENAL FUNCTION ARE RECOMMENDED BY THE INTERNATIONAL SOCIETY OF NEPHROLOGY (KDIGO 2012 CLINICAL PRACTICE GUIDELINE). G1,NORMAL OR HIGH: >89 ml/min/1.73 m2 G2,MILDLY DECREASED: 60-89 ml/min/1.73 m2 G3A,MILDLY TO MODERATELY DECREASED: 45-59 ml/min/1.73 m2 G3B,MODERATELY TO SEVERELY DECREASED: 30-44 ml/min/1.73 m2 G4,SEVERELY DECREASED: 15-29 ml/min/1.73 m2 G5,KIDNEY FAILURE: <15 ml/min/1.73 m2 08/08/2020 6:40 PM CDT Guille Abebe MD LABORATORY Final Result [facility] [address] [place] [address], * (ABNORMAL) CBC W/DIFF AUTOMATED (08/08/2020 6:40 PM CDT) WBC 9.5 4.5 - 10.8 x10'3/uL 08/08/2020 6:49 PM CDT [facility] RBC 4.10 4.10 - 5.40 x10'6/uL 08/08/2020 6:49 PM CDT [facility] HGB 12.7 12.0 - 16.0 G/DL 08/08/2020 6:49 PM CDT [facility] HCT 35.7(L) 36.0 - 47.0 % 08/08/2020 6:49 PM CDT [facility] MCV 87.1 78.0 - 100.0 FL 08/08/2020 6:49 PM CDT [facility] MCH 31.0 27.0 - 31.0 PG 08/08/2020 6:49 PM CDT [facility] MCHC 35.6 33.0 - 36.0 G/DL 08/08/2020 6:49 PM CDT [facility] RDW 12.6 11.5 - 14.5 % 08/08/2020 6:49 PM CDT [facility] PLT 250 150 - 350 x10'3/uL 08/08/2020 6:49 PM CDT [facility] MPV 9.3 7.4 - 10.4 FL 08/08/2020 6:49 PM CDT [facility] DIFFERENTIAL COMMENT NORMAL REFERENCE RANGE NOT ESTABLISHED FOR THE PROPORTIONAL LEUKOCYTE DIFFERENTIAL. 08/08/2020 6:49 PM CDT [facility] SEG NEUTROPHILS 75.3 % 0 6:49 PM CDT [facility] LYMPHOCYTES 14.6 % 08/08/2020 6:49 PM CDT [facility] MONOCYTES 7.2 % 08/08/2020 6:49 PM CDT [facility] EOSINOPHILS 2.4 % 08/08/2020 6:49 PM CDT [facility] BASOPHILS 0.2 % 08/08/2020 6:49 PM CDT [facility] IMMATURE GRANS % 0.3 % 08/08/20 20 6:49 PM CDT [facility] NRBC 0.0 % 08/08/2020 6:49 PM CDT [facility] ABS. NEUTROPHILS 7.14 1.60 - 8.30 x10'3/uL 08/08/2020 6:49 PM CDT [facility] ABS. LYMPHOCYTES 1.39 0.80 - 4.70 x10'3/uL 08/08/2020 6:49 PM CDT [facility] ABS. MONOCYTES 0.68 0.00 - 1.50 x10'3/uL 08/08/2020 6:49 PM CDT [facility] ABS. EOSINOPHILS 0.23 0.00 - 0.40 x10'3/uL 08/08/2020 6:49 PM CDT [facility] ABS. BASOPHILS 0.02 0.00 - 0.20 x10'3/uL 08/08/2020 6:49 PM CDT [facility] ABS. IMMATURE GRANULOCYTES 0.03 0.00 - 0.03 x10'3/uL 08/08/2020 6:49 PM CDT [facility] ABS. NUCLEATED RBC'S 0.00 0.00 x10'3/uL 08/08/2020 6:49 PM CDT [facility] 08/08/2020 6:40 PM CDT Guille Abebe MD LABORATORY Final Result [facility] [address] [place] [address], * ECG 12 lead (08/08/2020 6:35 PM CDT) 08/08/2020 6:35 PM CDT Narrative [facility] - 08/08/2020 7:10 PM CDT ? [facility] ?[address] [place], [place] ??[address] ? Test Date: ?2020-08-08 Pat Name: ? JAMES BARRY ? Department: ? Room: ? EXAM 404 Gender: ? Female ? Passenger Rate Clerk: ?? NDOS : ?1990 ? Requested By: GUILLE ABEBE Order Number: [id number] ? Reading MD: ?? Kashif Braswell ? Measurements Intervals ?[place] ? Rate: ? 92 ? P: ?62 TX: ? 146 ?QRS: ?16 QRSD: ? 69 ? T: ?30 QT: ? 339 ? QTc: ?420 ? Interpretive Statements SINUS RHYTHM POSSIBLE RIGHT VENTRICULAR CONDUCTION DELAY Procedure Note Kashif Braswell MD - 08/08/2020 [facility] [address] [place] [address] Test Date: 2020-08-08 Pat Name: JAMES BARRY Department: Room: EXAM 404 Gender: Female Passenger Rate Clerk: DEANDRE : 1990 Requested By: GUILLE ABEBE Order Number: [id number] Reading MD: Kashif Braswell Measurements Intervals [place] Rate: 92 P: 62 TX: 146 QRS: 16 QRSD: 69 T: 30 QT: 339 QTc: 420 Interpretive Statements SINUS RHYTHM POSSIBLE RIGHT VENTRICULAR CONDUCTION DELAY us Guille Abebe MD ECG ORDERABLES Final Result [facility] * CULTURE URINE (08/08/2020 6:12 PM CDT) SPEC DESCRIPTION URINE CLEAN CATCH 08/08/2020 6:26 PM CDT [facility] SPECIAL REQUESTS NO SPECIAL REQUEST 08/08/2020 6:26 PM CDT [facility] CULTURE RESULT >100,000 CFU/mL ESCHERICHIA COLI 08/10/2020 3:32 PM CDT [facility] URINE SPECIMEN OBTAINED BY CLEAN CATCH PROCEDURE / Unknown 08/08/2020 6:12 PM CDT 08/08/2020 6:25 PM CDT Narrative Organism Antibiotic Method Susceptibility Escherichia coli AMPICILLIN BRIGID (VITEK) Resistant Escherichia coli AMOXICILLIN/CLAVULANIC A BRIGID (VITEK) Sensitive Escherichia coli AZTREONAM BRIGID (VITEK) Sensitive Escherichia coli CEFEPIME BRIGID (VITEK) Sensitive Escherichia coli CEFTRIAXONE BRIGID (VITEK) Sensitive Escherichia coli CEFAZOLIN BRIGID (VITEK) Sensitive Escherichia coli CIPROFLOXACIN BRIGID (VITEK) Sensitive Escherichia coli ESBL BRIGID (VITEK) NEG: Sensitive Escherichia coli ERTAPENEM BRIGID (VITEK) Sensitive Escherichia coli NITROFURANTOIN BRIGID (VITEK) Sensitive Escherichia coli GENTAMICIN BRIGID (VITEK) Sensitive Escherichia coli IMIPENEM BRIGID (VITEK) Sensitive Escherichia coli LEVOFLOXACIN BRIGID (VITEK) Sensitive Escherichia coli MEROPENEM BRIGID (VITEK) Sensitive Escherichia coli PIPRACIL/TAZO BRIGID (VITEK) Sensitive Escherichia coli TRIMETH-SULFAMETH. BRIGID (VITEK) Sensitive Escherichia coli TETRACYCLINE BRIGID (VITEK) Sensitive us Guille Abebe MD MICROBIOLOGY - GENERAL ORDERABLE S Final Result [facility] [address] [place] [address], [place] [phone] [facility] [address] [place] [address], [place] [phone] * (ABNORMAL) DRUG SCREEN RAPID (08/08/2020 6:12 PM CDT) Pathologist [facility] CANNABINOIDS SCREEN (U) NEGATIVE NEGATIVE 08/08/2020 6:34 PM CDT [facility] PHENCYCLIDINE PCP (U) NEGATIVE NEGATIVE 08/08/2020 6:34 PM CDT [facility] COCAINE METABOLITES (U) NEGATIVE NEGATIVE 08/08/2020 6:34 PM CDT [facility] METHAMPHETAMINE (U) POSITIVE(A) NEGATIVE 08/08/2020 6:34 PM CDT [facility] OPIATE SCREEN (U) NEGATIVE NEGATIVE 020 6:34 PM CDT [facility] AMPHETAMINE (U) POSITIVE(A) NEGATIVE 08/08/20 20 6:34 PM CDT [facility] BENZODIAZEPINES SCREEN (U) NEGATIVE NEGATIVE 08/08/2020 6:34 PM CDT [facility] TRICYCLIC ANTIDEPRESSANT SCREEN (U) NEGATIVE NEGATIVE 08/08/2020 6:34 PM CDT [facility] METHADONE (U) NEGATIVE NEGATIVE 08/08/2020 6:34 PM CDT [facility] BARBITURATES SCREEN (U) NEGATIVE NEGATIVE 08/08/2020 6:34 PM CDT [facility] OXYCODONE SCREEN (U) NEGATIVE NEGATIVE 08/08/2020 6:34 PM CDT [facility] PROPOXYPHENE SCREEN (U) NEGATIVE NEGATIVE 08/08/2020 6:34 PM CDT [facility] URINE TOX COMMENT THIS TEST METHODOLOGY IS DESIGNED AND OFFERED A RAPID TURNAROUND, QUALITATIVE SCREENING PROCEDURE TO AID IN THE IMMEDIATE MEDICAL ASSESSMENT OF PATIENTS SUSPECTED OF SUBSTANCE ABUSE. 08/08/2020 6:15 PM CDT [facility] Comment: CLINICAL CONSIDERATION AND PROFESSIONAL JUDGMENT MUST BE APPLIED TO ANY DRUG OF ABUSE TEST RESULT, BOTH POSITIVE AND NEGATIVE. CONFIRMATORY QUANTITATIVE RESULTS ARE AVAILABLE THROUGH OUR [facility]FER[facility]. Urine specimen (specimen) URINE SPECIMEN / Unknown 08/08/2020 6:12 PM CDT us Guille Abebe MD URINE ORDERABLES Final Result Performing Organization Address City/[facility]/ZIP Co de Phone Number [facility] [address] [place] [address], [place] [phone] * TEST URINE (08/08/2020 6:12 PM CDT) PREG TEST POSITIVE 08/08/2020 6:25 PM CDT [facility] SPECIFIC GRAVITY (U) 1.025 08/08/2020 6:25 PM CDT [facility] URINE SPECIMEN OBTAINED BY CLEAN CATCH PROCEDURE / Unknown 08/08/2020 6:12 PM CDT us Guille Abebe MD URINE ORDERABLES Final Result Performing Organization Address [facility] de Phone Number [facility] [address] [place] [address], [place] [phone] * (ABNORMAL) URINALYSIS (08/08/2020 6:12 PM CDT) COLOR (U) YELLOW 08/08/2020 6:31 PM CDT [facility] TRANSPARENCY CLOUDY 08/08/2020 6:31 PM CDT [facility] SPECIFIC GRAVITY (U) 1.025 1.000 - 1.025 08/08/2020 6:31 PM CDT [facility] U PH 6.0 5.0 - 8.0 08/08/2020 6:31 PM CDT [facility] LEUKOCYTES (U) 1+(A) NEGATIVE 08/08/2020 6:31 PM CDT [facility] NITRITES POSITIVE(A) NEGATIVE 08/08/2020 6:31 PM CDT [facility] PROTEIN (U) NEGATIVE NEGATIVE 08/08/2020 6:31 PM CDT [facility] URINE GLUCOSE NEGATIVE NEGATIVE 08/08/2020 6:31 PM CDT [facility] KETONES MG/DL (U) NEGATIVE NEGATIVE 08/08/2020 6:31 PM CDT [facility] UROBILINOGEN 0.2 <1.0 EU/DL 08/08/2020 6:31 PM CDT [facility] BILIRUBIN (U) NEGATIVE NEGATIVE 08/08/2020 6:31 PM CDT [facility] BLOOD (U) 2+(A) NEGATIVE 08/08/2020 6:31 PM CDT [facility] WBC/HPF FILLED FIELD(A) 0 - 5 /HPF 0 6:31 PM CDT [facility] EPI/HPF MANY /LPF 08/08/2020 6:31 PM CDT [facility] BACTERIA (U) 3+ /HPF 08/08/2020 6:31 PM CDT [facility] COMMENT (U) FEW WBC CLUMPS SEEN ON MICROSCOPICS 08/08/2020 6:31 PM CDT [facility] URINE SPECIMEN OBTAINED BY CLEAN CATCH PROCEDURE / Unknown 08/08/2020 6:12 PM CDT Guille Abebe MD URINE ORDERABLES Final Result [facility] Critical access hospital[address] [place] [address], documented in this encounter Visit Diagnoses Diagnosis Urinary tract infection without hematuria, site unspecified- Primary 11 weeks gestation of ([facility]) state, incidental Dyspnea, unspecified type Drug abuse ([facility]) Other, mixed, or unspecified nondependent drug abuse, unspecified documented in this encounter Administered Medications Inactive Administered Medications - up to 3 most recent administrations Medication Order MAR Action Action Date Dose Rate Site acetaminophen (TYLENOL) tablet 650 mg 650 mg, Oral, Once, 1 dose, On Kelly 08/08/20 at 2015, Maximum dose of acetaminophen is 4000 mg from all sources in 24 hours. Given 08/08/2020 8:07 PM CDT 650 mg cefTRIAXone (ROCEPHIN) 1 g in sodium chloride 0.9 % 50 mL IVPB 1 g, Intravenous, at 100 mL/hr, Once, 1 dose, On Kelly 08/08/20 at 2029 New Bag 08/08/2020 8:19 PM CDT 1 g 100 mL/hr documented in this encounter Active and Recently Administered Medications Times are shown in CDT. Scheduled Medication Order 08/06/2020 08/07/2020 08/08/2020 acetaminophen (TYLENOL) tablet 650 mg (COMPLETED) 650 mg, Oral, Once, 1 dose, On Kelly 08/08/20 at 2015, Maximum dose of acetaminophen is 4000 mg from all sources in 24 hours. 2006 (Given - Provid er: Shelly Conrad RN) cefTRIAXone (ROCEPHIN) 1 g in sodium chloride 0.9 % 50 mL IVPB (COMPLETED) 1 g, Intravenous, at 100 mL/hr, Once, 1 dose, On Kelly 08/08/20 at 2029 2018 (New Bag - Prov ider: Shelly Conrad RN)2119 (Infusion Stop Time - Provider: Dinora Elliott RN) documented in this encounter Care Teams Payroll Officer Relationship Specialty Start Date End Date Royer Zhang MD [address] [place] [phone] PCP - General FAMILY PRACTICE 04/03/19 documented as of this encounter
--- OUTSIDE RECORDS SUMMARY | 2024-10-27 08:15 | XMS_ITS | Encounter Summary ---
Author Organization [facility] Address [address] [place] [address]. 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 Gender Identity Not on file Sexual Orientation Not on file documented as of this encounter Last Filed Vital Signs Vital Sign Reading Time Taken Comments Blood Pressure 124/79 07/01/2019 8:39 PM CDT Pulse 90 07/01/2019 8:39 PM CDT Temperature 36.4 ??C (97.6 ??F) 07/01/2019 8:39 PM CD T Respiratory Rate 18 07/01/2019 8:39 PM CDT Oxygen Saturation 99% 07/01/2019 8:39 PM CDT Inhaled Oxygen Concentration - - Weight 77.1 kg (170 lb) 07/01/2019 8:39 PM CDT Height 165.1 cm (5' 5 ) 07/01/2019 8:39 PM CDT Body Mass Index 28.29 07/01/2019 8:39 PM CDT documented in this encounter Discharge Instructions * Attachments The following attachments cannot be sent through Care Everywhere. * Deep Vein Thrombosis (Blood Clots in the Legs) (Rwandan) * Phlebitis Discharge Instructions ([place]andan) * Superficial Phlebitis ([place]wandan) documented in this encounter Medications at Time of Discharge traMADol 50 MG tablet 1-2 every 6 hours as needed for pain 20 tablet 04/03/2019 07/14/2019 documented as of this encounter ED Notes * Ryland Kauffman MD - 07/01/2019 9:01 PM CDT Chief Complaint Chief Complaint Patient presents with ??? Leg Pain History of Present Illness I, Rosi Wiley, acting as a scribe, am personally taking down the notes in the presence of Dr. Ryland Kauffman MD. Take no action on this note until reviewed and authenticated by the physician. Patient is a 28 year old female presenting to the ED seeking evaluation for leg pain onset x1 day ago. Patient states that she began noticing some slight swelling and redness in the posterior aspect of her right thigh. She mentions that the swelling and redness has gotten worse and is now accompanied by pain that radiates from her right knee to her right ankle. Patient denies fever, chills, nausea, vomiting, diarrhea, chest pain, shortness of breath, cough, rhinorrhea, sore throat, abdominal pain, trauma or injury to area of complaint, back or neck pain, headache, changes in vision/hearing/speech/bladder or bowel habits/eating or drinking habits. Patient denies any pertinent past medical his tory or taking any medication for pain relief. Patient is in otherwise baseline state of health andall other review of systems negative upon review. History provided by: Patient Medical History ALLERGIES: No Known Allergies MEDICATIONS: Prior to Admission medications Medication Sig Start Date End Date Taking? Authorizing Provider traMADol 50 MG tablet 1-2 every 6 hours as needed for pain 04/03/19 Bernabe Drew MD PAST MEDICAL HISTORY: Past Medical History: [...] Review of Systems Review of Systems Constitutional: Negative. HENT: Negative. Eyes: Negative. Respiratory: Negative. Cardiovascular: Positive for leg swelling. Gastrointestinal: Negative. Endocrine: Negative. Genitourinary: Negative. Musculoskeletal: Positive for myalgias (Leg pain). Skin: Negative. Allergic/Immunologic: Negative. Neurological: Negative. Hematological: Negative. Psychiatric/Behavioral: Negative. Physical Exam Filed Vitals: 07/01/192038 BP: 124/79 Pulse: 90 Resp: 18 Temp: 97.6 ??F (36.4 ??C) TempSrc: Temporal SpO2: 99% Weight: 77.1 kg (170 lb) Height: 5' 5 (1.651 m) Physical Exam Constitutional: She is oriented to person, place, and time. She appears well- developed and well-nourished. HENT: Head: Normocephalic and atraumatic. Eyes: Conjunctivae and EOM are normal. Pupils are equal, round, and reactive to light. Neck: Normal range of motion. Neck supple. Cardiovascular: Normal rate, regular rhythm and normal heart sounds. Pulmonary/Chest: Effort normal and breath sounds normal. Abdominal: Soft. Bowel sounds are normal. Musculoskeletal: Normal range of motion. Neurological: She is alert and oriented to person, place, and time. Skin: Skin is warm and dry. Patient has superficial phlebitis to the veins of the right posterior thigh upon exam. Nursing note and vitals reviewed. Diagnostic Studies / Procedures ELECTROCARDIOGRAMS: No results found for this visit on 07/01/19. LABORATORY STUDIES: No results found for this visit on 07/01/19. IMAGING STUDIES No orders to display ED Course / Medical Decision Making Medications enoxaparin (LOVENOX) 80 MG/0.8ML syringe 80 mg (80 mg Subcutaneous Given 07/01/192118) Current Discharge Medication List [facility] [address] [place] [address] Go in 1 day Please return at 8 AM to have an ultrasound of your leg performed to rule out a DVT (deep vein thrombosis) Royer Zhang MD [address] [facility] [address] [phone] Call in 2 days To make a follow-up appointment Clinical Impression Superficial phlebitis and thrombophlebitis of right lower extremity (Primary) Rosi Mann Saurabh, 07/01/19, 21:24. Provider Attestation: I provided the services as described by the scribe in the note above. The patient presents with right thigh tenderness and swelling medially consistent with thrombophlebitis. Of note, she states thatshe was in residential for 6 days and was not very mobile at during that time often laying in bed for hours. She denies any chest pain or shortness of breath. At this time, ultrasound is unable to [facility] to perform a duplex and rule out DVT. A dose of Lovenox has been given overnight and she will return at 8 AM to have her study performed. She and mom understand and agree with the plan and have no further questions prior to discharge. Disposition: Discharge Ryland Kauffman MD 07/01/192124 * Rowan Alcala RN - 07/01/2019 8:40 PM CDT Arrives w right leg pain, onset yesterday. Noted swelling, denies injury leg. States she was recently in skilled nursing recently for 6 days and laid in bed the whole time. Denies CP or SOB documented in this encounter Plan of Treatment Not on file documented as of this encounter Visit Diagnoses Diagnosis Superficial phlebitis and thrombophlebitis of right lower extremity- Primary documented in this encounter Administered Medications Inactive Administered Medications - up to 3 most recent administrations Medication Order MAR Action Action Date Dose Rate Site enoxaparin (LOVENOX) 80 MG/0.8ML syringe 80 mg 80 mg, Subcutaneous, Every 12 hours, First dose on 07/01/19 at 2100, Until Discontinued, Administer by deep SubQ injection alternating between the left or right anterolateral and left or right posterolateral abdominal wall. Given 07/01/2019 9:19 PM CDT 80 mg Right Upper Abdomen documented in this encounter Active and Recently Administered Medications Times are shown in CDT. Scheduled Medication Order 06/29/2019 06/30/2019 07/01/2019 enoxaparin (LOVENOX) 80 MG/0.8ML syringe 80 mg 80 mg, Subcutaneous, Every 12 hours, First dose on 07/01/19 at 2100, Until Discontinued, Administer by deep SubQ injection alternating between the left or right anterolateral and left or right posterolateral abdominal wall. 2118 (Given - Provid er: Charity Aguiar RN) documented in this encounter Care Teams Natural Resources Extension Educator Relationship Specialty Start Date End Date Royer Zhang MD [address] [place] [phone] PCP - General FAMILY PRACTICE 04/03/19 documented as of this encounter
--- OUTSIDE RECORDS SUMMARY | 2024-10-27 08:15 | XMS_ITS | Encounter Summary ---
Author Organization [facility] Address [address] [place] [address]. [place], [place] [id number] [place] [address] Care Team Providers Care Furniture Salesperson Name Role Phone Unavailable Primary Care Provider Unavailabl e Encounter Details Date Type Department Care Team (Late st Contact Info) Description 03/16/[address] 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
--- OUTSIDE RECORDS SUMMARY | 2024-10-27 08:15 | XMS_ITS | Encounter Summary ---
Author Organization [facility] Address [address] [place] [address]. [place] [address] [place] [address] Care Team Providers Care Roof Mechanic Name Role Phone Unavailable Primary Care Provider Unavailabl e Encounter Details Date Type Department Care Team (Late st Contact Info) Description 12/04/[address] 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
--- OUTSIDE RECORDS SUMMARY | 2024-10-27 08:15 | XMS_ITS | Encounter Summary ---
Author Organization [facility] Address [address] [place] [address]. 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 Gender Identity Not on file Sexual Orientation Not on file documented as of this encounter Plan of Treatment Not on file documented as of this encounter Procedures Procedure Name Priority Date/Time Associated Diagnosis Comments HEMOGLOBIN AND HEMATOCRIT Routine 11/30/2018 7:20 AM VARNISH MAKER BLOOD GAS, VENOUS, CORD Routine 11/29/2018 8:42 AM VARNISH MAKER documented in this encounter Results * (ABNORMAL) HEMOGLOBIN AND HEMATOCRIT (11/30/2018 7:20 AM VARNISH MAKER) HGB 9.3(L) 12.0 - 16.0 G/DL 11/30/2018 8:35 AM VARNISH MAKER [facility] HCT 29.0(L) 36.0 - 47.0 % 11/30/2018 8:35 AM VARNISH MAKER [facility] 11/30/2018 7:20 AM VARNISH MAKER 11/30/2018 8:29 AM VARNISH MAKER us Generic Conversion Md [facility] Final R esult Performing Organization Address City/[facility]/ZIP Co de Phone Number [place] [phone], * Blood gas, venous, cord (11/29/2018 8:42 AM VARNISH MAKER) PH LEIF CORD BLD 7.30 9 10:10 AM VARNISH MAKER [facility] PCO2 VENOUS CORD BLD 49.0 MMHG 11/29/2018 10:10 AM VARNISH MAKER [facility] PO2 VENOUS CORD BLD 18.0 MM[facility] 11/29/2018 10:10 AM VARNISH MAKER [facility] BICARB VENOUS CORD BLD 23.5 MMOL/L 11/29/2018 10:10 AM VARNISH MAKER [facility] BASE DEFICIT VENOUS CORD BLD 2.9 MMOL/L 11/29/2018 10:10 AM VARNISH MAKER [facility] 11/29/2018 8:42 AM VARNISH MAKER 11/29/2018 9:58 AM VARNISH MAKER us Generic Conversion Md [facility] Final R esult Performing Organization Address City/[facility]/ZIP Co de Phone Number [address] [phone], documented in this encounter Visit Diagnoses Diagnosis Encounter for maternal care for low transverse scar from previous delivery ([facility]) documented in this encounter
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
--- OUTSIDE RECORDS SUMMARY | 2024-10-27 08:16 | XMS_ITS | Encounter Summary ---
Author Organization [facility] Address [address] [place] [address]. 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
--- OUTSIDE RECORDS SUMMARY | 2024-10-27 08:16 | XMS_ITS | Encounter Summary ---
Author Organization [facility] Address [address] [place] [address]. 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
--- OUTSIDE RECORDS SUMMARY | 2024-10-27 17:27 | XMS_ITS | Encounter Summary ---
Author Organization [facility] Address [facility] [facility] 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
--- OUTSIDE RECORDS SUMMARY | 2024-10-27 17:27 | XMS_ITS | Encounter Summary ---
Author Organization [facility] Address [address] [place] [address]. 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 Gender Identity Not on file Sexual Orientation Not on file documented as of this encounter Plan of Treatment Not on file documented as of this encounter Procedures Procedure Name Priority Date/Time Associated Diagnosis Comments HEMOGLOBIN AND HEMATOCRIT Routine 11/30/2018 7:20 AM HVAC INSTRUCTOR BLOOD GAS, VENOUS, CORD Routine 11/29/2018 8:42 AM HVAC INSTRUCTOR documented in this encounter Results * (ABNORMAL) HEMOGLOBIN AND HEMATOCRIT (11/30/2018 7:20 AM HVAC INSTRUCTOR) HGB 9.3(L) 12.0 - 16.0 G/DL 11/30/2018 8:35 AM HVAC INSTRUCTOR [facility] HCT 29.0(L) 36.0 - 47.0 % 11/30/2018 8:35 AM HVAC INSTRUCTOR [facility] 11/30/2018 7:20 AM HVAC INSTRUCTOR 11/30/2018 8:29 AM HVAC INSTRUCTOR us Generic Conversion Md [facility] Final R esult Performing Organization Address City/[facility]/ZIP Co de Phone Number [place] [phone], * Blood gas, venous, cord (11/29/2018 8:42 AM HVAC INSTRUCTOR) PH LEIF CORD BLD 7.30 9 10:10 AM HVAC INSTRUCTOR [facility] PCO2 VENOUS CORD BLD 49.0 MMHG 11/29/2018 10:10 AM HVAC INSTRUCTOR [facility] PO2 VENOUS CORD BLD 18.0 MMHG 11/29/2018 10:10 AM HVAC INSTRUCTOR [facility] BICARB VENOUS CORD BLD 23.5 MMOL/L 11/29/2018 10:10 AM HVAC INSTRUCTOR [facility] BASE DEFICIT VENOUS CORD BLD 2.9 MMOL/L 11/29/2018 10:10 AM HVAC INSTRUCTOR [facility] 11/29/2018 8:42 AM HVAC INSTRUCTOR 11/29/2018 9:58 AM HVAC INSTRUCTOR us Generic Conversion Md [facility] Final R esult Performing Organization Address City/[facility]/ZIP Co de Phone Number [address] [address], documented in this encounter Visit Diagnoses Diagnosis Encounter for maternal care for low transverse scar from previous delivery ([facility]) documented in this encounter
--- OUTSIDE RECORDS SUMMARY | 2024-10-27 17:27 | XMS_ITS | Encounter Summary ---
Author Organization [facility] Address [address] [place] [address]. 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
--- OUTSIDE RECORDS SUMMARY | 2024-10-27 17:27 | XMS_ITS | Encounter Summary ---
Author Organization [facility] Address [address] [place] [address]. [place], [place] [address] [place] [address] Care Team Providers Care Action Finisher Name Role Phone Royer Zhang MD Primary Care Provider [phone] Reason for Referral * Imaging (Emergency) - Closed Specialty Diagnoses / Procedures Referred By [place] Referred To Contact RADIOLOGY Diagnoses Encounter for assessment for deep vein thrombosis (DVT) Procedures USV LEIF DUPLEX LOW EXT RT Ryland Kauffman MD [facility] [address] [address] Phone: tel: fax: Referral ID Status Reason Start Date Expiration Date Visits Re quested Visits Authorized [id number] Closed 07/02/2019 08/01/2020 1 1 Reason for Visit * Imaging (Emergency) - Closed Specialty Diagnoses / Procedures Referred By Gera de león Referred To Contact RADIOLOGY Diagnoses Encounter for assessment for deep vein thrombosis (DVT) Procedures USV LEIF DUPLEX LOW EXT RT Ryland Kauffman MD [facility] [address] [address] Phone: tel: fax: Referral ID Status Reason Start Date Expiration Date Visits Re quested Visits Authorized [id number] Closed 07/02/2019 08/01/2020 1 1 Encounter Details Date Type Department Care Team (Latest Contact Info) Description 07/02/2019 9:15 AM CDT - 07/02/2019 11:59 PM CDT Hospital Encounter 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
--- OUTSIDE RECORDS SUMMARY | 2024-10-27 17:27 | XMS_ITS | Encounter Summary ---
Author Organization [facility] Address [address] [place] [address]. 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
--- OUTSIDE RECORDS SUMMARY | 2024-10-27 17:27 | XMS_ITS | Encounter Summary ---
Author Organization [facility] Address [address] [place] [address]. 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 Gender Identity Not on file Sexual Orientation [...] Vein Thrombosis (Blood Clots in the Legs) (Lao) * Phlebitis Discharge Instructions (Lao) * Superficial Phlebitis (Lao) documented in this encounter Medications at Time [...] Subcutaneous Given 07/01/192118) Current Discharge Medication List [facility] [facility] [address] [facility] [address] [place] [address] Go in 1 day Please return at 8 AM to have an ultrasound of your leg performed to rule out a DVT (deep vein thrombosis) Royer Zhang MD [address] [facility] [phone] Call in 2 days To make a follow-up appointment Clinical Impression Superficial phlebitis and thrombophlebitis of right lower extremity (Primary) Rosi Mann Saurabh, 07/01/19, 21:24. Provider Attestation: I provided the services as described by the scribe in the note above. The patient presents with right thigh tenderness and swelling medially consistent with thrombophlebitis. Of note, she states thatshe [facility] and was not very mobile at during that time often laying in bed for hours. She denies any chest pain or shortness of breath. At this time, [facility] perform a duplex and rule [...] injury leg. States she was recently in half-way recently for 6 days and laid in [...] RN) documented in this encounter Care Teams Fiber Picker Relationship Specialty Start Date End Date Royer Zhang MD [address] [place] [phone] PCP - General FAMILY PRACTICE 04/03/19 documented as of this encounter
--- OUTSIDE RECORDS SUMMARY | 2024-10-27 17:27 | XMS_ITS | Encounter Summary ---
Author Organization [facility] Address [address] [place] [address]. [place], [place] [address] [place] [address] Care Team Providers Care Rat Poisoner Name Role Phone Royer Zhang MD Primary Care Provider Reason for Visit * Reason Comments Abdominal Pain Back Pain Hip Pain Encounter Details Date Type Department Care Team (Late st Contact Info) Description 11/05/2022 7:19 AM BASEBOARD HEATING INSTALLER - 11/05/2022 8:48 AM BASEBOARD HEATING INSTALLER Emergency [facility] [place] [address] Guille Harry MD [address] [place] [address] Abdominal Pain; Back Pain; Hip Pain Discharge [...] on file Legal Sex Female 5:56 PM BASEBOARD HEATING INSTALLER Gender Identity Not on file Sexual Orientation Not on file COVID-19 Exposure Response Date Recorded In the last 10 days, have yo u been in contact with someone who was confirmed or suspected to have Coronavirus/COVID-19? No / Unsure 11/05/2022 7:27 AM BASEBOARD HEATING INSTALLER documented as of this encounter Last Filed Vital Signs Vital Sign Reading Time Taken Comments Blood Pressure 103/59 11/05/2022 8:45 AM BASEBOARD HEATING INSTALLER Pulse 117 11/05/2022 7:23 AM BASEBOARD HEATING INSTALLER Temperature 35.7 ??C (96.2 ??F) 11/05/2022 7:23 AM CS T Respiratory Rate 16 11/05/2022 8:45 AM BASEBOARD HEATING INSTALLER Oxygen Saturation 100% 11/05/2022 8:45 AM BASEBOARD HEATING INSTALLER Inhaled Oxygen Concentration - - Weight 79.8 kg (176 lb) 11/05/2022 7:23 AM BASEBOARD HEATING INSTALLER Height 165.1 cm (5' 5 ) 11/05/2022 7:23 AM BASEBOARD HEATING INSTALLER Body Mass Index 29.29 11/05/2022 7:23 AM BASEBOARD HEATING INSTALLER documented in this encounter Discharge Instructions * Discharge Instructions* Guille Harry MD - 11/05/2022 7:41 AM BASEBOARD HEATING INSTALLER Return if pain worse, vomiting or fever over 102 BOARD HEATING INSTALLER BOARD HEATING INSTALLER * Attachments The following attachments cannot be sent through Care Everywhere. * Severe Abdominal Pain Discharge Instructions, Adult (Welsh) * Urinary Tract Infection Discharge Instructions, Adult (Welsh) documented in this encounter Medications at Time [...] COLOR (U) YELLOW TRANSPARENCY SLIGHTLY CLOUDY Specific [place] (U) 1.025 1.000 - 1.025 U PH [...] MD 11/05/2238 Guille Harry MD 11/05/22 0839 BOARD HEATING INSTALLER BOARD HEATING INSTALLER * Jordan Porter RN - 11/05/2022 7:25 AM CST Arrives per pov with c/o nya hip pain onset 5 days ago, now hurting in abd. Denies vomiting, diarrhea. BOARD HEATING INSTALLER documented in this encounter Plan of Treatment Not on file documented as of this encounter Procedures Procedure Name Priority Date/Time Associated Diagnosis Comments HC URINALYSIS AUTO W/MICRO STAT 11/05/2022 7:51 AM BASEBOARD HEATING INSTALLER URINE BACTERIA CULTURE Routine 7:51 AM BASEBOARD HEATING INSTALLER COMPREHENSIVE METABOLIC PANEL STAT 11/05/2022 7:51 AM BASEBOARD HEATING INSTALLER HCG QUANT (SERUM)-CHORIONIC GONADOTROPIN STAT 11/05/2022 7:51 AM BASEBOARD HEATING INSTALLER CBC W/DIFF AUTOMATED STAT 11/05/2022 7:51 AM BASEBOARD HEATING INSTALLER LIPASE STAT 11/05/2022 7:51 AM BASEBOARD HEATING INSTALLER documented in this encounter Results * CULTURE URINE (11/05/2022 7:51 AM BASEBOARD HEATING INSTALLER) SPEC DESCRIPTION URINE CLEAN CATCH 11/05/2022 8:16 AM BASEBOARD HEATING INSTALLER [facility] SPECIAL REQUESTS NO SPECIAL REQUEST 11/05/2022 8:16 AM BASEBOARD HEATING INSTALLER [facility] CULTURE RESULT FEW CONTAMINANTS 10/19 11:34 AM BASEBOARD HEATING INSTALLER [facility] URINE SPECIMEN OBTAINED BY CLEAN CATCH PROCEDURE / Unknown 11/05/2022 7:51 AM BASEBOARD HEATING INSTALLER 11/05/2022 8:15 AM BASEBOARD HEATING INSTALLER us Guille Harry MD MICROBIOLOGY - GENERAL ORDERABLE S Final Result Performing Organization Address [facility] Co de Phone Number [facility] [address] [place] [address], [place] [phone] [facility] [address] [place] [address], [place] [phone] * HCG QUANT (SERUM)-CHORIONIC GONADOTROPIN (11/05/2022 7:51 AM BASEBOARD HEATING INSTALLER) HCG QUANTITATIVE <1 0.0 - 6.0 MIU/ML 11/05/2022 8:29 AM BASEBOARD HEATING INSTALLER [facility] Comment:NON- FEMALE 0-6 11/05/2022 7:51 AM BASEBOARD HEATING INSTALLER us Guille Harry MD LABORATORY Final Result Performing Organization Address [facility] Co de Phone Number [facility] [address] [place] [address], [place] [phone] * (ABNORMAL) URINALYSIS (11/05/2022 7:51 AM BASEBOARD HEATING INSTALLER) COLOR (U) YELLOW 11/05/2022 8:14 AM BASEBOARD HEATING INSTALLER [facility] TRANSPARENCY SLIGHTLY CLOUDY 11/05/2022 8:14 AM BASEBOARD HEATING INSTALLER [facility] SPECIFIC GRAVITY (U) 1.025 1.000 - 1.025 11/05/2022 8:14 AM BASEBOARD HEATING INSTALLER [facility] U PH 5.5 5.0 - 8.0 11/05/2022 8:14 AM BASEBOARD HEATING INSTALLER [facility] LEUKOCYTES (U) 1+(A) NEGATIVE 11/05/2022 8:14 AM BASEBOARD HEATING INSTALLER [facility] NITRITES NEGATIVE NEGATIVE 11/05/2022 8:14 AM BASEBOARD HEATING INSTALLER [facility] PROTEIN (U) NEGATIVE NEGATIVE 11/05/2022 8:14 AM BASEBOARD HEATING INSTALLER [facility] URINE GLUCOSE NEGATIVE NEGATIVE 11/05/2022 8:14 AM BASEBOARD HEATING INSTALLER [facility] KETONES MG/DL (U) NEGATIVE NEGATIVE 11/05/2022 8:14 AM BASEBOARD HEATING INSTALLER [facility] UROBILINOGEN 0.2 <1.0 EU/DL 11/05/2022 8:14 AM [facility] BILIRUBIN (U) NEGATIVE NEGATIVE 11/05/2022 8:14 AM [facility] BLOOD (U) NEGATIVE NEGATIVE 11/05/2022 8:14 AM [facility] WBC/HPF 20-50(A) 0 - 5 /HPF 11/05/2022 8:14 AM BASEBOARD HEATING INSTALLER [facility] RBC/HPF 0-5 0 - 5 /HPF 11/05/2022 8:14 AM BASEBOARD HEATING INSTALLER [facility] EPI/LPF MODERATE /LPF 11/05/2022 8:14 AM [facility] BACTERIA (U) 1+ /HPF 11/05/2022 8:14 AM BASEBOARD HEATING INSTALLER [facility] MUCUS PRESENT 11/05/2022 8:14 AM BASEBOARD HEATING INSTALLER [facility] URINE SPECIMEN OBTAINED BY CLEAN CATCH PROCEDURE / Unknown 11/05/2022 7:51 AM BASEBOARD HEATING INSTALLER us Guille Harry MD URINE ORDERABLES Final Result [facility] [address] [place] [address], * (ABNORMAL) LIPASE (11/05/2022 7:51 AM BASEBOARD HEATING INSTALLER) LIPASE 69(L) 73 - 393 UNITS/L 11/05/2022 8:29 AM BASEBOARD HEATING INSTALLER [facility] 11/05/2022 7:51 AM BASEBOARD HEATING INSTALLER us Guille Harry MD LABORATORY Final Result [facility] [address] [place] [address], * (ABNORMAL) COMPREHENSIVE METABOLIC PANEL (11/05/2022 7:51 AM BASEBOARD HEATING INSTALLER) SODIUM S/P/B 136 136 - 145 MMOL/L 11/05/2022 8:29 AM [facility] POTASSIUM S/P/B 3.8 3.5 - 5.1 MMOL/L 11/05/2022 8:29 AM [facility] CHLORIDE S/P/B 100 98 - 107 MMOL/L 11/05/2022 8:29 AM [facility] CO2 30.5 21.0 - 32.0 MMOL/L 11/05/2022 8:29 AM [facility] GLUCOSE 118(H) 70 - 99 MG/DL 11/05/2022 8:29 AM [facility] Comment: FASTING GLUCOSE 100 TO 125 MG/DL IS CONSISTENT WITH IMPAIRED FASTING GLUCOSE. FASTING GLUCOSE >125 MG/DL IS CONSISTENT WITH DIABETES. RANDOM GLUCOSE >200 MG/DL WITH HYPERGLYCEMIC SYMPTOMS IS CONSISTENT WITH DIABETES. PER ADA GUIDELINES BUN 10 6 - 24 MG/DL 11/05/2022 8:29 AM [facility] CREATININE S/P/B 0.84 0.55 - 1.02 MG/DL 11/05/2022 8:29 AM [facility] CALCIUM S/P/B 9.0 8.4 - 10.5 MG/DL 11/05/2022 8:29 AM [facility] BILIRUBIN TOTAL S/P/B 0.5 0.2 - 1.0 MG/DL 11/05/2022 8:29 AM [facility] Comment: THIS ASSAY IS NOT RECOMMENDED FOR PATIENTS UNDERGOING TREATMENT WITH ELTROMBOPAG DUE TO THE POTENTIAL FOR FALSELY ELEVATED RESULTS. ALKALINE PHOSPHATASE S/P/B 114(H) 37 - 98 U/L 11/05/2022 8:29 AM [facility] AST 19 15 - 37 U/L 11/05/2022 8:29 AM [facility] ALT 30 14 - 59 U/L 11/05/2022 8:29 AM [facility] TOTAL PROTEIN S/P/B 7.7 6.4 - 8.2 G/DL 11/05/2022 8:29 AM BASEBOARD HEATING INSTALLER [facility] ALBUMIN S/P/B 3.8 3.4 - 5.0 G/DL 11/05/2022 8:29 AM [facility] ANION GAP 5.5 5.0 - 15.0 MMOL/L 11/05/2022 8:29 AM [facility] OSMOLALITY (CALC) 282 MOSM/KG 023 8:29 AM [facility] Comment:REFERENCE RANGE NOT ESTABLISHED GFR ESTIMATE >90 >89 ML/MIN/1. 73 M2 11/05/2022 8:29 AM [facility] GFR NOTES GFR REFERENCE S: 11/05/2022 8:29 AM [facility] Comment: THE ESTIMATED GFR IS [...] FAILURE: <15 ml/min/1.73 m2 11/05/2022 7:51 AM BASEBOARD HEATING INSTALLER Guille Harry MD LABORATORY Final Result [facility] [address] [place] [address], * (ABNORMAL) CBC W/DIFF AUTOMATED (11/05/2022 7:51 AM BASEBOARD HEATING INSTALLER) WBC 10.47 4.00 - 10.80 x10'3/uL 11/05/2022 8:04 AM [facility] RBC 4.61 4.10 - 5.40 x10'6/uL 11/05/2022 8:04 AM [facility] HGB 11.8(L) 12.0 - 16.0 G/DL 11/05/2022 8:04 AM [facility] HCT 37.9 36.0 - 47.0 % 11/05/2022 8:04 AM [facility] MCV 82.2 78.0 - 100.0 FL 11/05/2022 8:04 AM [facility] MCH 25.6(L) 27.0 - 31.0 PG 11/05/2022 8:04 AM [facility] MCHC 31.1(L) 33.0 - 36.0 G/DL 11/05/2022 8:04 AM [facility] RDW 15.9(H) 11.5 - 14.5 % 11/05/2022 8:04 AM [facility] PLT 387(H) 150 - 350 x10'3/uL 11/05/2022 8:04 AM [facility] MPV 9.1 7.4 - 10.4 FL 11/05/2022 8:04 AM [facility] CBC COMMENT NORMAL REFERENCE RANGE NOT ESTABLISHED FOR THE PROPORTIONAL LEUKOCYTE DIFFERENTIAL. 11/05/2022 8:04 AM [facility] NEUTROPHILS % 72.7 % 11/05/2022 8:04 AM [facility] LYMPHOCYTES % 15.7 % 11/05/2022 8:04 AM [facility] MONOCYTES % 7.2 % 11/05/2022 8:04 AM [facility] EOSINOPHILS % 2.8 % 11/05/2022 8:04 AM [facility] BASOPHILS % 0.3 % 11/05/2022 8:04 AM BASEBOARD HEATING INSTALLER [facility] IMMATURE GRANS % 1.3 % 11/05/19 8:04 AM BASEBOARD HEATING INSTALLER [facility] NRBC 0.0 % 11/05/2022 8:04 AM BASEBOARD HEATING INSTALLER [facility] ABS. NEUTROPHILS 7.62 1.60 - 8.30 x10'3/uL 11/05/2022 8:04 AM BASEBOARD HEATING INSTALLER [facility] ABS. LYMPHOCYTES 1.64 0.80 - 4.70 x10'3/uL 11/05/2022 8:04 AM BASEBOARD HEATING INSTALLER [facility] ABS. MONOCYTES 0.75 0.00 - 1.50 x10'3/uL 11/05/2022 8:04 AM BASEBOARD HEATING INSTALLER [facility] ABS. EOSINOPHILS 0.29 0.00 - 0.40 x10'3/uL 11/05/2022 8:04 AM BASEBOARD HEATING INSTALLER [facility] ABS. BASOPHILS 0.03 0.00 - 0.20 x10'3/uL 11/05/2022 8:04 AM BASEBOARD HEATING INSTALLER [facility] ABS. IMMATURE GRANULOCYTES 0.14(H) 0.00 - 0.03 x10'3/uL 11/05/2022 8:04 AM BASEBOARD HEATING INSTALLER [facility] ABS. NUCLEATED RBC'S 0.00 0.00 x10'3/uL 11/05/2022 8:04 AM [facility] 11/05/2022 7:51 AM BASEBOARD HEATING INSTALLER Guille Harry MD LABORATORY Final Result [facility] [address] [place] [address], documented in this encounter Visit Diagnoses Diagnosis [...] 11/05/22 at 0745 Given 11/05/2022 8:00 AM BASEBOARD HEATING INSTALLER 2 mg ondansetron (ZOFRAN) injection 4 mg 4 mg, Intravenous, Once, 1 dose, On Kelly 11/05/22 at 0745, IV push over 2-5 minutes. Given 11/05/2022 7:59 AM BASEBOARD HEATING INSTALLER 4 mg sodium chloride 0.9% bolus infusion 1,000 mL 1,000 mL, Intravenous, Administer over 15 Minutes, Once, 1 dose, On Kelly 11/05/22 at 0745 New Bag 11/05/2022 7:58 AM BASEBOARD HEATING INSTALLER 1,000 mLs 999 mL/hr documented in this encounter Active and Recently Administered Medications Times are shown in BASEBOARD HEATING INSTALLER. Scheduled Medication Order 11/03/2022 11/04/2022 11/05/2022 morphine injection 2 mg (COMPLETED) 2 mg, Intravenous, Once, 1 dose, On Kelly 11/05/22 at 0745 0800 (Given - Provid er: Jordan Porter RN) ondansetron (ZOFRAN) injection 4 mg (COMPLETED) 4 mg, Intravenous, Once, 1 dose, On Kelly 11/05/22 at 0745, IV push over 2-5 minutes. 0759 (Given - Provid er: Jordan oPrter RN) sodium chloride 0.9% bolus infusion 1,000 mL (COMPLETED) 1,000 mL, Intravenous, Administer over 15 Minutes, Once, 1 dose, On Kelly 11/05/22 at 0745 0758 (New Bag - Prov ider: Jordan Porter RN)0844 (Infusion Stop Time - Provider: Jordan Porter RN) documented in this encounter Care Teams Rat Poisoner Relationship Specialty Start Date End Date Royer Zhang MD [address] [place] [phone] PCP - General FAMILY PRACTICE 04/03/19 documented as of this encounter
--- OUTSIDE RECORDS SUMMARY | 2024-10-27 17:27 | XMS_ITS | Encounter Summary ---
Author Organization [facility] Address [address] [place] [address]. [place] [address] [place] [address] Care Team Providers Care Mirror Painter Name Role Phone Unavailable Primary Care Provider Unavailabl e Encounter Details Date Type Department Care Team (Late st Contact Info) Description 12/04/[address] [facility] [address] [place] [address] Poly Adler MD [address] [place] [address] Social History Tobacco Use Types Packs/Day Years Used Date Smoking Tobacco: Never Assessed Comments Unknown Sex and Gender Information Value Date Recorded Sex Assigned at Not on file Legal Sex Female 5:56 PM SEISMOGRAPH CHIEF Gender Identity Not on file Sexual Orientation Not on file documented as of this encounter Plan of Treatment Not on file documented as of this encounter Visit Diagnoses Diagnosis Encounter for routine follow-up ([facility]) Routine follow-up documented in this encounter
--- OUTSIDE RECORDS SUMMARY | 2024-10-27 17:27 | XMS_ITS | Encounter Summary ---
Author Organization [facility] Address [facility]ly [facility] [place] [address] [place] [address] Care Team Providers Care Speeder Tender Name Role Phone Unavailable Primary Care Provider Unavailabl e Encounter Details Date Type Department Care Team (Late st Contact Info) Description 02/10/2012 Abstract [facility] [address] [place] [address] Castro Salmeron MD [address] [place], [place] [address] Social History Tobacco Use Types Packs/Day Years Used Date Smoking Tobacco: Never Assessed Comments Unknown Sex and Gender Information Value Date Recorded Sex Assigned at Not on file Legal Sex Female 5:56 PM CRIMINAL JUSTICE 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
--- OUTSIDE RECORDS SUMMARY | 2024-10-27 17:27 | XMS_ITS | Encounter Summary ---
Author Organization [facility] Address [address] [place] [address]. 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
--- OUTSIDE RECORDS SUMMARY | 2024-10-27 17:27 | XMS_ITS | Encounter Summary ---
Author Organization [facility] Address [address] [place] [address]. 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
--- OUTSIDE RECORDS SUMMARY | 2024-10-27 17:27 | XMS_ITS | Encounter Summary ---
Author Organization [facility] Address [address] [place] [address]. [place], [place] [address] [place] [address] Care Team Providers Care Solderer Furnace Name Role Phone Royer Zhang MD Primary Care Provider [phone] Encounter Details Date Type Department Care Team [...] on file Legal Sex Female 5:56 PM PUBLICATIONS EDITOR Gender Identity Not on file Sexual Orientation Not on file COVID-19 Exposure Response Date Recorded In the last 10 days, have yo u been in contact with someone who was confirmed or suspected to have Coronavirus/COVID-19? No / Unsure 11/05/2022 7:27 AM PUBLICATIONS EDITOR documented as of this encounter Plan of Treatment Not on file documented as of this encounter Visit Diagnoses Not on filedocumented in this encounter Care Teams Solderer Furnace Relationship Specialty Start Date End Date Royer Zhang MD [address] [place] [phone] PCP - General FAMILY PRACTICE 04/03/19 documented as of this encounter
--- OUTSIDE RECORDS SUMMARY | 2024-10-27 17:27 | XMS_ITS | Encounter Summary ---
Author Organization [facility] Address [address] [place] [address]. [place], [place] [address] [place] [address] Care Team Providers Care Negative Assembler Name Role Phone Unavailable Primary Care Provider Unavailabl e Encounter Details Date Type Department Care Team (Late st Contact Info) Description 03/16/[address] 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
--- OUTSIDE RECORDS SUMMARY | 2024-10-27 17:27 | XMS_ITS | Encounter Summary ---
Author Organization [facility] Address [address] [place] [address]. 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
--- OUTSIDE RECORDS SUMMARY | 2024-10-27 17:27 | XMS_ITS | Encounter Summary ---
Author Organization [facility] Address [address] [place] [address]. [place], [place] [address] [place] [address] Care Team Providers Care Customer Solutions Coordinator Name Role Phone Royer Zhang MD Primary Care Provider [phone] Encounter Details Date Type Department Care Team [...] on file Legal Sex Female 5:56 PM TAXICAB STARTER Gender Identity Not on file Sexual Orientation [...] on filedocumented in this encounter Care Teams Customer Solutions Coordinator Relationship Specialty Start Date End Date Royer Zhang MD [address] [place] [phone] PCP - General FAMILY PRACTICE 04/03/19 documented as of this encounter
--- OUTSIDE RECORDS SUMMARY | 2024-10-27 17:27 | XMS_ITS | Clinical Summary ---
Author Organization [facility] Address [address] [place] [address]. [place], [place] [address] [place] [address] Care Team Providers Care Metal Turner Name Role Phone Royer Zhang MD Primary Care Provider [phone] Allergies Active Allergy Reactions Criticality Noted Date [...] on file Legal Sex Female 5:56 PM TELEMETRY MONITOR Gender Identity Not on file Sexual Orientation Not on file Last Filed Vital Signs Vital Sign Reading Time Taken Comments Blood Pressure 103/59 11/05/2022 8:45 AM TELEMETRY MONITOR Pulse 117 11/05/2022 7:23 AM TELEMETRY MONITOR Temperature 35.7 ??C (96.2 ??F) 11/05/2022 7:23 AM CS T Respiratory Rate 16 11/05/2022 8:45 AM TELEMETRY MONITOR Oxygen Saturation 100% 11/05/2022 8:45 AM TELEMETRY MONITOR Inhaled Oxygen Concentration - - Weight 79.8 kg (176 lb) 11/05/2022 7:23 AM TELEMETRY MONITOR Height 165.1 cm (5' 5 ) 11/05/2022 7:23 AM TELEMETRY MONITOR Body Mass Index 29.29 11/05/2022 7:23 AM TELEMETRY MONITOR Plan of Treatment Health Maintenance Due Date [...] patient's age to complete this topic Insurance [employer] Advance Directives * Full Code (Latest Code Status on File) Date Activated Date Inactivated Comments 12/05/2021 4:29 PM 12/05/2021 7:38 PM Care Teams Metal Turner Relationship Specialty Start Date End Date Royer Zhang MD [address] [place] [phone] PCP - General FAMILY PRACTICE 04/03/19
--- OUTSIDE RECORDS SUMMARY | 2024-10-27 17:27 | XMS_ITS | Encounter Summary ---
Author Organization [facility] Address [facility]. [place], [place] [address] [place] [address] Care Team Providers Care Research Specialist Name Role Phone Unavailable Primary Care Provider Unavailabl e Encounter Details Date Type Department Care Team (Late st Contact Info) Description 12/07/2017 Abstract [facility] 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
--- OUTSIDE RECORDS SUMMARY | 2024-10-27 17:27 | XMS_ITS | Encounter Summary ---
Author Organization [facility] Address [facility] [place] [address] [place] [address] Care Team Providers Care Station Installation Supervisor Name Role Phone Unavailable Primary Care Provider Unavailabl e Encounter Details Date Type Department Care Team (Late st Contact Info) Description 11/28/2018 Abstract [facility] [address] [place] [address] Rubin Holly MD [address] [place] [address] Social History Tobacco Use Types Packs/Day Years Used Date Smoking Tobacco: Never Assessed Comments Unknown Sex and Gender Information Value Date Recorded Sex Assigned at Not on file Legal Sex Female 5:56 PM CAR AND YARD SUPERVISOR Gender Identity Not on file Sexual Orientation Not on file documented as of this encounter Plan of Treatment Not on file documented as of this encounter Procedures Procedure Name Priority Date/Time Associated Diagnosis Comments URINALYSIS Routine 11/28/2018 1:38 PM CAR AND YARD SUPERVISOR TYPE AND CROSSMATCH Routine 11/28/2018 1 :35 PM CAR AND YARD SUPERVISOR CBC W/DIFF AUTOMATED Routine 11/28/2018 1:35 PM CAR AND YARD SUPERVISOR documented in this encounter Results * (ABNORMAL) URINALYSIS (11/28/2018 1:38 PM CAR AND YARD SUPERVISOR) COLOR (U) YELLOW 11/28/2018 2:50 PM CAR AND YARD SUPERVISOR [facility] TRANSPARENCY CLEAR 11/28/2018 2:50 PM CAR AND YARD SUPERVISOR [facility] SPECIFIC GRAVITY (U) 1.025 1.000 - 1.025 11/28/2018 2:50 PM CAR AND YARD SUPERVISOR [facility] U PH 7.0 5.0 - 8.0 11/28/2018 2:50 PM CAR AND YARD SUPERVISOR [facility] LEUKOCYTES (U) 1+(A) NEGATIVE 11/28/2018 2:50 PM CAR AND YARD SUPERVISOR [facility] NITRITES NEGATIVE NEGATIVE 11/28/2018 2:50 PM CAR AND YARD SUPERVISOR [facility] PROTEIN (U) NEGATIVE NEGATIVE 11/28/2018 2:50 PM CAR AND YARD SUPERVISOR [facility] URINE GLUCOSE NEGATIVE NEGATIVE 11/28/2018 2:50 PM CAR AND YARD SUPERVISOR [facility] KETONES MG/DL (U) TRACE(A) NEGATIVE 11/28/2018 2:50 PM CAR AND YARD SUPERVISOR [facility] UROBILINOGEN 0.2 <1.0 EU/DL 11/28/2018 2:50 PM CAR AND YARD SUPERVISOR [facility] BILIRUBIN (U) NEGATIVE NEGATIVE 11/28/2018 2:50 PM CAR AND YARD SUPERVISOR [facility] BLOOD (U) NEGATIVE NEGATIVE 11/28/2018 2:50 PM CAR AND YARD SUPERVISOR [facility] WBC/HPF 5-10(A) 0 - 5 /HPF 11/28/2018 2:50 PM CAR AND YARD SUPERVISOR [facility] EPI/HPF MANY /LPF 11/28/2018 2:50 PM CAR AND YARD SUPERVISOR [facility] MUCUS PRESENT 11/28/2018 2:50 PM CAR AND YARD SUPERVISOR [facility] 11/28/2018 1:38 PM CAR AND YARD SUPERVISOR 11/28/2018 2:40 PM CAR AND YARD SUPERVISOR us Generic Conversion Md RIZVI URINE ORDERABLES Final Result [facility] [address] [place] [address], * (ABNORMAL) CBC W/DIFF AUTOMATED (11/28/2018 1:35 PM CAR AND YARD SUPERVISOR) WBC 13.8(H) 4.5 - 10.8 x10'3/uL 11/28/2018 2:42 PM CAR AND YARD SUPERVISOR [facility] RBC 4.00(L) 4.10 - 5.40 x10'6/uL 11/28/2018 2:42 PM [facility] HGB 11.4(L) 12.0 - 16.0 G/DL 11/28/2018 2:42 PM [facility] HCT 34.9(L) 36.0 - 47.0 % 11/28/2018 2:42 PM [facility] MCV 87.3 78.0 - 100.0 FL 11/28/2018 2:42 PM [facility] MCH 28.5 27.0 - 31.0 PG 11/28/2018 2:42 PM [facility] MCHC 32.7(L) 33.0 - 36.0 G/DL 11/28/2018 2:42 PM [facility] RDW 14.7(H) 11.5 - 14.5 % 11/28/2018 2:42 PM [facility] PLT 289 150 - 350 x10'3/uL 11/28/2018 2:42 PM [facility] MPV 10.5(H) 7.4 - 10.4 FL 11/28/2018 2:42 PM [facility] SEG NEUTROPHILS 73.4 % 9 2:42 PM [facility] LYMPHOCYTES 18.3 % 11/28/2018 2:42 PM [facility] MONOCYTES 5.1 % 11/28/2018 2:42 PM [facility] EOSINOPHILS 2.2 % 11/28/2018 2:42 PM [facility] BASOPHILS 0.3 % 11/28/2018 2:42 PM [facility] IMMATURE GRANS % 0.7 % 11/28/19 19 2:42 PM [facility] NRBC 0.0 % 11/28/2018 2:42 PM [facility] ABS. NEUTROPHILS 10.15(H) 1.60 - 8.30 x10'3/uL 11/28/2018 2:42 PM [facility] ABS. LYMPHOCYTES 2.52 0.80 - 4.70 x10'3/uL 11/28/2018 2:42 PM [facility] ABS. MONOCYTES 0.70 0.00 - 1.50 x10'3/uL 11/28/2018 2:42 PM CAR AND YARD SUPERVISOR [facility] ABS. EOSINOPHILS 0.30 0.00 - 0.40 x10'3/uL 11/28/2018 2:42 PM CAR AND YARD SUPERVISOR [facility] ABS. BASOPHILS 0.04 0.00 - 0.20 x10'3/uL 11/28/2018 2:42 PM [facility] ABS. IMMATURE GRANULOCYTES 0.09(H) 0.00 - 0.03 x10'3/uL 11/28/2018 2:42 PM CAR AND YARD SUPERVISOR [facility] ABS. NUCLEATED RBC'S 0.00 0.00 x10'3/uL 11/28/2018 2:42 PM [facility] OTHER (type in comments) 11/28/2018 1:35 PM CAR AND YARD SUPERVISOR 11/28/2018 2:39 PM CAR AND YARD SUPERVISOR Comment:WHOLE BLOOD SAMPLE us Generic Conversion Md RIZVI LABORATORY Final R esult [facility] [address] [place] [address], * Type and Crossmatch (11/28/2018 1:35 PM CAR AND YARD SUPERVISOR) UNITS ORDERED 1 11/28/2018 2:33 PM [facility] ABO/RH O POSITIVE 11/28/2018 3:29 PM [facility] ANTIBODY SCREEN NEGATIVE 9 3:29 PM [facility] SAMPLE EXPIRATION 12/01/2018 11/28/2018 3:29 PM [facility] BLOOD UNIT NUMBER [id number] 11/28/2018 3:29 PM [facility] PRODUCT: PC LEUKOPOOR 11/28/2018 3:29 PM [facility] UNIT DIVISION 00 11/28/2018 3:29 PM [facility] BLOOD UNIT STATUS UNIT RELEASED 12/02/2018 1:52 AM CAR AND YARD SUPERVISOR [facility] TRANSFUSION STATUS OK TO TRANSFUSE 11/28/2018 3:29 PM CAR AND YARD SUPERVISOR [facility] CROSSMATCH COMPATIBLE 11/28/2018 3:29 PM CAR AND YARD SUPERVISOR [facility] OTHER (type in comments) 11/28/2018 1:35 PM CAR AND YARD SUPERVISOR 11/28/2018 2:38 PM CAR AND YARD SUPERVISOR Comment:SERUM SPECIMEN~ACELL ULAR BLOOD (SERUM OR PLASMA) SPECIMEN us Generic Conversion Md RIZVI BLOOD BANK TEST ORDERAB LES Final Result [facility] [address] [place] [address], [place] [phone] documented in this encounter Visit Diagnoses Diagnosis Encounter for delivery without indication (HHS/HCC) delivery, without mention of indication, unspecified as to episode of care documented in this encounter
--- OUTSIDE RECORDS SUMMARY | 2024-10-27 17:27 | XMS_ITS | Encounter Summary ---
Author Organization [facility] Address [address] [place] [address]. 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 * Muscle Strain (Mongolian) documented in this encounter Medications at Time [...] History provided by: Patient and medical records clinician oncology used: No ALLERGIES No Known Allergies CURRENT [...] file Gets together: Not on file Attends sikhism service: Not on file Active member of [...] SHOULDER LT 3V Final Result by User, [id number] (04/03 2052) Examination: 3 or more views [...] Interpreted By: Shamika Nava, 04/03/2019 8:50 PM XR ELBOW LT M3V Final Result by User, [id number] (04/03 2051) Examination: 3 views left elbow [...] HAND LT 3V Final Result by User, [email or web address] (04/03 2050) Examination: Left hand 3 views [...] Interpreted By: Shamika Nava, 04/03/2019 8:48 PM LABS No results found [...] [facility] [address] [place] [address] [address] [facility] [address] (Ph #: [phone]) Royer Zhang MD [address] [facility] [phone] In 3 days if not improving FINAL IMPRESSION SNOMED CT(R) 1. Strain of upper arm, left INJURY OF UPPER ARM Royer Zhang MD [address] [facility] [phone] In 3 days if not [...] RN) documented in this encounter Care Teams Compliance Counsel Relationship Specialty Start Date End Date Royer Zhang MD [address] [place] [phone] PCP - General FAMILY PRACTICE 04/03/19 documented as of this encounter
--- OUTSIDE RECORDS SUMMARY | 2024-10-27 17:27 | XMS_ITS | Encounter Summary ---
Author Organization [facility] Address [address] [place] [address]. 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
--- OUTSIDE RECORDS SUMMARY | 2024-10-27 17:27 | XMS_ITS | Encounter Summary ---
Author Organization [facility] Address [address] [place] [address]. [place], [place] [address] [place] [address] Care Team Providers Care Filter Changer Name Role Phone Unavailable Primary Care Provider Unavailabl e Encounter Details Date Type Department Care Team (Late st Contact Info) Description 07/02/[address] [facility] [address] [place] [address] Royer Zhang MD [address] [place] [phone] Social History Tobacco Use Types Packs/Day Years Used Date Smoking Tobacco: Never Assessed Comments Unknown Sex and Gender Information Value Date Recorded Sex Assigned at Not on file Legal Sex Female 5:56 PM ESTATE CONSERVATOR Gender Identity Not on file Sexual Orientation Not on file documented as of this encounter Plan of Treatment Not on file documented as of this encounter Visit Diagnoses Diagnosis Acute bronchitis documented in this encounter
--- OUTSIDE RECORDS SUMMARY | 2024-10-27 17:27 | XMS_ITS | Encounter Summary ---
Author Organization [facility] Address [address] [place] [address]. [place], [place] [address] [place] [address] Care Team Providers Care Field Captain Name Role Phone Royer Zhang MD Primary Care Provider [phone] Encounter Details Date Type Department Care Team [...] on file Legal Sex Female 5:56 PM PHYS ASST Gender Identity Not on file Sexual Orientation Not on file COVID-19 Exposure Response Date Recorded In the last 10 days, have yo u been in contact with someone who was confirmed or suspected to have Coronavirus/COVID-19? No / Unsure 12/05/2021 4:26 PM PHYS ASST documented as of this encounter Plan of Treatment Not on file documented as of this encounter Visit Diagnoses Not on filedocumented in this encounter Care Teams Field Captain Relationship Specialty Start Date End Date Royer Zhang MD [address] [place] [phone] PCP - General FAMILY PRACTICE 04/03/19 documented as of this encounter
--- OUTSIDE RECORDS SUMMARY | 2024-10-27 17:27 | XMS_ITS | Encounter Summary ---
Author Organization [facility] Address [facility] [place] [address] [place] [address] Care Team Providers Care Citrix Administrator Name Role Phone Royer Zhang MD Primary Care Provider [phone] Reason for Visit * Reason Comments Eye Problem Pt arrives to the ER with c/o right eye pain, and reddness. Pt believes she has 1-2 contact lens suck in her eye since last night. Encounter Details Date Type Department Care Team (Late Contact Info) Description 01/21/2022 11:30 PM CDT - 01/22/2022 12:12 AM CDT Emergency [facility] [address] [facility] [place] [address] Bernabe Drew MD [address] [place] [id number] Eye Problem (Pt arrives to the ER [...] on file Legal Sex Female 5:56 PM BUSINESS MANAGEMENT INTERN Gender Identity Not on file Sexual [...] Care Everywhere. * Corneal Abrasion Discharge Instructions (Citizen Of [place]) documented in this encounter Medications at Time [...] the safe side she should see an eyewear consultant next 24 hours. Because of the scleral [...] [facility] [place] [address] [facility] [phone] Call They open at 8:30am morning. New [...] go) documented in this encounter Care Teams Citrix Administrator Relationship Specialty Start Date End Date Royer Zhang MD [address] [place] [address] PCP - General FAMILY PRACTICE 04/03/19 documented as of this encounter
--- OUTSIDE RECORDS SUMMARY | 2024-10-27 17:27 | XMS_ITS | Encounter Summary ---
Author Organization [facility] Address [address] [place] [address]. [place], [place] [address] [place] [address] Care Team Providers Care Revolving Field Assembler Name Role Phone Unavailable Primary Care Provider Unavailabl e Encounter Details Date Type Department Care Team (Late st Contact Info) Description 04/15/1997 Abstract [facility] [address] [place] [address] , Generic Conversion, Social History Tobacco Use Types Packs/Day Years Used Date Smoking Tobacco: Never Assessed Comments Unknown Sex and Gender Information Value Date Recorded Sex Assigned at Not on file Legal Sex Female 5:56 PM ADVERTISING SALES AGENT Gender Identity Not on file Sexual Orientation Not on file documented as of this encounter Plan of Treatment Not on file documented as of this encounter Visit Diagnoses Not on filedocumented in this encounter
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
--- OUTSIDE RECORDS SUMMARY | 2024-10-27 17:27 | XMS_ITS | Encounter Summary ---
Author Organization [facility] Address [address] [place] [address]. [place], [place] [address] [place] [address] Care Team Providers Care Gas Maker Name Role Phone Unavailable Primary Care Provider Unavailabl e Encounter Details Date Type Department Care Team (Late st Contact Info) Description 03/31/2014 Abstract [facility] [address] [facility] [place] [address] Social History Tobacco Use Types Packs/Day Years Used Date Smoking Tobacco: Never Assessed Comments Unknown Sex and Gender Information Value Date Recorded Sex Assigned at Not on file Legal Sex Female 5:56 PM LEAD SYSTEMS DEVELOPER Gender Identity Not on file Sexual Orientation Not on file documented as of this encounter Plan of Treatment Not on file documented as of this encounter Visit Diagnoses Diagnosis Injury of face and neck documented in this encounter
--- OUTSIDE RECORDS SUMMARY | 2024-10-27 17:27 | XMS_ITS | Encounter Summary ---
Author Organization [facility] Address [address] [place] [address]. 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
--- OUTSIDE RECORDS SUMMARY | 2024-10-27 17:27 | XMS_ITS | Encounter Summary ---
Author Organization [facility] Address [address] [place] [address]. [place] [address] [place] [address] Care Team Providers Care College Associate Name Role Phone Royer Zhang MD Primary Care Provider [phone] Reason for Referral * Imaging (Emergency) - Closed Specialty Diagnoses / Procedures Referred By Contelisabeth t Referred To Contact RADIOLOGY Procedures US OB <14WKS TA Guille Abebe MD Phone: tel: fax: Referral ID Status Reason Start Date Expiration Date Visits Re quested Visits Authorized [id number] Closed 08/08/2020 09/08/2021 1 1 Reason for Visit * Reason Comments Medical Problem Encounter Details Date Type Department Care Team (Late st Contact Info) Description 08/08/2020 6:08 PM CDT - 08/08/2020 9:25 PM CDT Emergency [facility] [address] [place] [address] [place] [address] Guille Abebe MD [address] [place] [address] [id number] Medical Problem Discharge Disposition: Home or Self [...] on file 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: DEANDRE : 1990 Requested By: GUILLE ABEBE Order Number: [id number] Reading MD: Kashif Braswell Measurements Intervals [place] Rate: 92 P: 62 AL: 146 QRS: 16 QRSD: 69 T: 30 QT: 339 QTc: 420 Interpretive Statements SINUS RHYTHM POSSIBLE RIGHT VENTRICULAR CONDUCTION DELAY LABORATORY STUDIES: Results for orders placed or performed during the hospital encounter of 08/08/20 URINALYSIS Result Value Ref Range COLOR (U) YELLOW TRANSPARENCY CLOUDY Specific [place] (U) 1.025 1.000 - 1.025 U PH [...] Value Ref Range PREG TEST POSITIVE Specific [place] (U) 1.025 DRUG SCREEN RAPID Result Value [...] OB <14WKS TA Final Result by User, [id number] (08/08 2051) . EXAMINATION: COMPLETE UTERUS LESS [...] rate is tachycardic. 5. Consider referral to sed high school teacher. Interpreted By: Roz Aguillon DO, 08/08/2020 8:39 PM XR CHEST PORTABLE Final Result by User, [id number] (08/08 1954) Examination: XR CHEST PORTABLE Exam [...] impression: non-specific ECG us Guille Abebe MD [facility] Final Result * [...] rate is tachycardic. 5. ??Consider referral to sed high school teacher. Interpreted By: Roz Aguillon DO, 08/08/2020 8:39 [...] rate is tachycardic. 5. Consider referral to sed high school teacher. Interpreted By: Roz Aguillon DO, 08/08/2020 8:39 [...] - 0.056 ng/mL. 08/08/2020 7:07 PM CDT [facility] Comment: ALTHOUGH VALUES OVER 0.056 ARE CONSIDERED ABNORMAL AND REPRESENT MYOCARDIAL DAMAGE,A CUTOFF OF 0.600 HAS BEEN RECOMMENDED REPRESENTING ACUTE MYOCARDIAL INFARCTION. 08/08/2020 6:40 PM CDT us Guille Abebe MD LABORATORY Final Result Performing Organization Address [facility] de Phone Number [facility] [address] [place] [address], * (ABNORMAL) D-DIMER, QUANTITATIVE (08/08/2020 6:40 PM CDT) D-DIMER 837(H) <501 ng{FEU}/mL 08/08/2020 6:57 PM CDT [facility] Comment: A D DIMER RESULT LESS THAN OR EQUAL TO 500 NG/ML FEU HAS A NEGATIVE PREDICTIVE VALUE GREATER THAN 95% FOR THE EXCLUSION OF ACUTE PULMONARY EMBOLISM OR DEEP VEIN THROMBOSIS WHEN THERE IS LOW TO MODERATE PRETEST PROBABILITY. 08/08/2020 6:40 PM CDT us Guille Abebe MD LABORATORY Final Result Performing Organization Address [facility] de Phone Number [facility] [address] [place] [address], * (ABNORMAL) HCG QUANT (SERUM)-CHORIONIC GONADOTROPIN (08/08/2020 6:40 PM CDT) HCG QUANTITATIVE 114,007(H ) 0.0 - 6.0 MIU/ML 08/08/2020 7:26 PM CDT [facility] Comment: WEEKS OF ? REFERENCE RANGES [...] MD LABORATORY Final Result Performing Organization Address [facility] de Phone Number [facility] [address] [place] [address], * LIPASE (08/08/2020 6:40 PM CDT) LIPASE 108 73 - 393 UNITS/L 08/08/2020 7:34 PM CDT [facility] 08/08/2020 6:40 PM CDT us Guille Abebe MD LABORATORY Final Result Performing Organization Address [facility] de Phone Number [facility] [address] [place] [address], * (ABNORMAL) COMPREHENSIVE METABOLIC PANEL (08/08/2020 6:40 PM CDT) SODIUM S/P/B 137 136 - 145 MMOL/L 08/08/2020 7:26 PM CDT [facility] POTASSIUM S/P/B 3.6 3.5 - 5.1 MMOL/L 08/08/2020 7:26 PM CDT [facility] CHLORIDE S/P/B 101 98 - 107 MMOL/L 08/08/2020 7:26 PM CDT [facility] CO2 26.5 21.0 - 32.0 MMOL/L 08/08/2020 7:26 PM T [facility] GLUCOSE 97 70 - 99 MG/DL 08/08/2020 7:26 PM T [facility] Comment: FASTING GLUCOSE 100 TO 125 MG/DL IS CONSISTENT WITH IMPAIRED FASTING GLUCOSE. FASTING GLUCOSE >125 MG/DL IS CONSISTENT WITH DIABETES. RANDOM GLUCOSE >200 MG/DL WITH HYPERGLYCEMIC SYMPTOMS IS CONSISTENT WITH DIABETES. PER ADA GUIDELINES BUN 8 6 - 24 MG/DL 08/08/2020 7:26 PM CDT [facility] CREATININE S/P/B 0.69 0.55 - 1.02 MG/DL 08/08/2020 7:26 PM T [facility] CALCIUM S/P/B 9.0 8.4 - 10.5 MG/DL 08/08/2020 7:26 PM T [facility] BILIRUBIN TOTAL S/P/B 0.3 0.2 - 1.0 MG/DL 08/08/2020 7:26 PM T [facility] Comment: THIS ASSAY IS NOT RECOMMENDED FOR PATIENTS UNDERGOING TREATMENT WITH ELTROMBOPAG DUE TO THE POTENTIAL FOR FALSELY ELEVATED RESULTS. ALKALINE PHOSPHATASE S/P/B 86 37 - 98 U/L 08/08/2020 7:26 PM T [facility] AST 17 15 - 37 U/L 08/08/2020 7:26 PM T [facility] ALT 23 14 - 59 U/L 08/08/2020 7:26 PM T [facility] TOTAL PROTEIN S/P/B 7.1 6.4 - 8.2 G/DL 08/08/2020 7:26 PM T [facility] ALBUMIN S/P/B 3.0(L) 3.4 - 5.0 G/DL 08/08/2020 7:26 PM T [facility] ANION GAP 9.5 5.0 - 15.0 MMOL/L 08/08/2020 7:26 PM T [facility] OSMOLALITY (CALC) 282 MOSM/KG 020 7:26 PM CDT [facility] Comment:REFERENCE RANGE NOT ESTABLISHED EGFR NON-AFR. AMER. >90 >89 ML/MIN/1. 73 M2 08/08/2020 7:26 PM CDT [facility] EGFR AFR. AMER. >90 >89 ML/MIN/1. 73 M2 08/08/2020 7:26 PM CDT [facility] GFR NOTES GFR REFERENCE S: 08/08/2020 7:26 PM CDT [facility] Comment: THE ESTIMATED [...] CDT Guille Abebe MD LABORATORY Final Result [facility] [address] [place] [address], * (ABNORMAL) CBC W/DIFF AUTOMATED (08/08/2020 6:40 PM CDT) WBC 9.5 4.5 - 10.8 x10'3/uL 08/08/2020 6:49 PM CDT [facility] RBC 4.10 4.10 - 5.40 x10'6/uL 08/08/2020 6:49 PM CDT [facility] HGB 12.7 12.0 - 16.0 G/DL 08/08/2020 6:49 PM CDT [facility] HCT 35.7(L) 36.0 - 47.0 % 08/08/2020 6:49 PM CDT [facility] MCV 87.1 78.0 - 100.0 FL 08/08/2020 6:49 PM CDT [facility] MCH 31.0 27.0 - 31.0 PG 08/08/2020 6:49 PM CDT [facility] MCHC 35.6 33.0 - 36.0 G/DL 08/08/2020 6:49 PM CDT [facility] RDW 12.6 11.5 - 14.5 % 08/08/2020 6:49 PM CDT [facility] PLT 250 150 - 350 x10'3/uL 08/08/2020 6:49 PM CDT [facility] MPV 9.3 7.4 - 10.4 FL 08/08/2020 6:49 PM CDT [facility] DIFFERENTIAL COMMENT NORMAL REFERENCE RANGE NOT ESTABLISHED FOR THE PROPORTIONAL LEUKOCYTE DIFFERENTIAL. 08/08/2020 6:49 PM CDT [facility] SEG NEUTROPHILS 75.3 % 0 6:49 PM CDT [facility] LYMPHOCYTES 14.6 % 08/08/2020 6:49 PM CDT [facility] MONOCYTES 7.2 % 08/08/2020 6:49 PM CDT [facility] EOSINOPHILS 2.4 % 08/08/2020 6:49 PM CDT [facility] BASOPHILS 0.2 % 08/08/2020 6:49 PM CDT [facility] IMMATURE GRANS % 0.3 % 08/08/20 20 6:49 PM CDT [facility] NRBC 0.0 % 08/08/2020 6:49 PM CDT [facility] ABS. NEUTROPHILS 7.14 1.60 - 8.30 x10'3/uL 08/08/2020 6:49 PM CDT [facility] ABS. LYMPHOCYTES 1.39 0.80 - 4.70 x10'3/uL 08/08/2020 6:49 PM CDT [facility] ABS. MONOCYTES 0.68 0.00 - 1.50 x10'3/uL 08/08/2020 6:49 PM CDT [facility] ABS. EOSINOPHILS 0.23 0.00 - 0.40 x10'3/uL 08/08/2020 6:49 PM CDT [facility] ABS. BASOPHILS 0.02 0.00 - 0.20 x10'3/uL 08/08/2020 6:49 PM CDT [facility] ABS. IMMATURE GRANULOCYTES 0.03 0.00 - 0.03 x10'3/uL 08/08/2020 6:49 PM CDT [facility] ABS. NUCLEATED RBC'S 0.00 0.00 x10'3/uL 08/08/2020 6:49 PM CDT [facility] 08/08/2020 6:40 PM CDT Guille Abebe MD LABORATORY Final Result [facility] [address] [place] [address], * ECG 12 lead (08/08/2020 6:35 PM CDT) 08/08/2020 6:35 PM CDT Narrative [facility] - 08/08/2020 7:10 PM CDT ? [facility] ?[address] [place], [place] ??[address] ? Test Date: ?2020-08-08 Pat Name: ? JAMES BARRY ? Department: ? Room: ? EXAM 404 Gender: ? Female ? 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 NDOS : ?1990 ? Requested By: GUILLE ABEBE Order Number: [id number] ? Reading MD: ?? Kashif Braswell ? Measurements Intervals ?[place] ? Rate: ? 92 ? P: ?62 AL: ? 146 ?QRS: ?16 QRSD: ? 69 ? T: ?30 QT: ? 339 ? QTc: ?420 ? Interpretive Statements SINUS RHYTHM POSSIBLE RIGHT VENTRICULAR CONDUCTION DELAY Procedure Note Kasihf Braswell MD - 08/08/2020 [facility] [address] 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1990 Requested By: GUILLE ABEBE Order Number: [id number] Reading MD: Kashif Braswell Measurements Intervals [place] Rate: 92 P: 62 AL: 146 QRS: 16 QRSD: 69 T: 30 QT: 339 QTc: 420 Interpretive Statements SINUS RHYTHM POSSIBLE RIGHT VENTRICULAR CONDUCTION DELAY us Guille Abebe MD ECG ORDERABLES Final Result [facility] * CULTURE URINE (08/08/2020 6:12 PM CDT) SPEC DESCRIPTION URINE CLEAN CATCH 08/08/2020 6:26 PM CDT [facility] SPECIAL REQUESTS NO SPECIAL REQUEST 08/08/2020 6:26 PM CDT [facility] CULTURE RESULT >100,000 CFU/mL ESCHERICHIA COLI 08/10/2020 3:32 PM CDT [facility] URINE SPECIMEN OBTAINED BY CLEAN [...] MICROBIOLOGY - GENERAL ORDERABLE S Final Result [facility] [address] [place] [address], [place] [phone] [id number] [facility] [address] [place] [address], [place] [phone] * (ABNORMAL) DRUG SCREEN RAPID (08/08/2020 6:12 PM CDT) Pathologist [facility] CANNABINOIDS SCREEN (U) NEGATIVE NEGATIVE 08/08/2020 6:34 PM CDT [facility] PHENCYCLIDINE PCP (U) NEGATIVE NEGATIVE 08/08/2020 6:34 PM CDT [facility] COCAINE METABOLITES (U) NEGATIVE NEGATIVE 08/08/2020 6:34 PM CDT [facility] METHAMPHETAMINE (U) POSITIVE(A) NEGATIVE 08/08/2020 6:34 PM CDT [facility] OPIATE SCREEN (U) NEGATIVE NEGATIVE 020 6:34 PM CDT [facility] AMPHETAMINE (U) POSITIVE(A) NEGATIVE 08/08/20 20 6:34 PM CDT [facility] BENZODIAZEPINES SCREEN (U) NEGATIVE NEGATIVE 08/08/2020 6:34 PM CDT [facility] TRICYCLIC ANTIDEPRESSANT SCREEN (U) NEGATIVE NEGATIVE 08/08/2020 6:34 PM CDT [facility] METHADONE (U) NEGATIVE NEGATIVE 08/08/2020 6:34 PM CDT [facility] BARBITURATES SCREEN (U) NEGATIVE NEGATIVE 08/08/2020 6:34 PM CDT [facility] OXYCODONE SCREEN (U) NEGATIVE NEGATIVE 08/08/2020 6:34 PM CDT [facility] PROPOXYPHENE SCREEN (U) NEGATIVE NEGATIVE 08/08/2020 6:34 PM CDT [facility] URINE TOX COMMENT THIS TEST METHODOLOGY IS DESIGNED AND OFFERED A RAPID TURNAROUND, QUALITATIVE SCREENING PROCEDURE TO AID IN THE IMMEDIATE MEDICAL ASSESSMENT OF PATIENTS SUSPECTED OF SUBSTANCE ABUSE. 08/08/2020 6:15 PM CDT [facility] Comment: CLINICAL CONSIDERATION AND PROFESSIONAL JUDGMENT MUST BE APPLIED TO ANY DRUG OF ABUSE TEST RESULT, BOTH POSITIVE AND NEGATIVE. CONFIRMATORY QUANTITATIVE RESULTS ARE AVAILABLE THROUGH OUR [facility]. Urine specimen (specimen) URINE SPECIMEN / Unknown 08/08/2020 6:12 PM CDT us Guille Abebe MD URINE ORDERABLES Final Result Performing Organization Address City/[facility]/ZIP Co de Phone Number [facility] [address] [place] [address], [place] [phone] * TEST URINE (08/08/2020 6:12 PM CDT) PREG TEST POSITIVE 08/08/2020 6:25 PM CDT [facility] SPECIFIC GRAVITY (U) 1.025 08/08/2020 6:25 PM CDT [facility] URINE SPECIMEN OBTAINED BY CLEAN CATCH PROCEDURE / Unknown 08/08/2020 6:12 PM CDT us Guille Abebe MD URINE ORDERABLES Final Result Performing Organization Address [facility] de Phone Number [facility] [address] [place] [address], [place] [phone] * (ABNORMAL) URINALYSIS (08/08/2020 6:12 PM CDT) COLOR (U) YELLOW 08/08/2020 6:31 PM CDT [facility] TRANSPARENCY CLOUDY 08/08/2020 6:31 PM CDT [facility] SPECIFIC GRAVITY (U) 1.025 1.000 - 1.025 08/08/2020 6:31 PM CDT [facility] U PH 6.0 5.0 - 8.0 08/08/2020 6:31 PM CDT [facility] LEUKOCYTES (U) 1+(A) NEGATIVE 08/08/2020 6:31 PM CDT [facility] NITRITES POSITIVE(A) NEGATIVE 08/08/2020 6:31 PM CDT [facility] PROTEIN (U) NEGATIVE NEGATIVE 08/08/2020 6:31 PM CDT [facility] URINE GLUCOSE NEGATIVE NEGATIVE 08/08/2020 6:31 PM CDT [facility] KETONES MG/DL (U) NEGATIVE NEGATIVE 08/08/2020 6:31 PM CDT [facility] UROBILINOGEN 0.2 <1.0 EU/DL 08/08/2020 6:31 PM CDT [facility] BILIRUBIN (U) NEGATIVE NEGATIVE 08/08/2020 6:31 PM CDT [facility] BLOOD (U) 2+(A) NEGATIVE 08/08/2020 6:31 PM CDT [facility] WBC/HPF FILLED FIELD(A) 0 - 5 /HPF 0 6:31 PM CDT [facility] EPI/HPF MANY /LPF 08/08/2020 6:31 PM CDT [facility] BACTERIA (U) 3+ /HPF 08/08/2020 6:31 PM CDT [facility] COMMENT (U) FEW WBC CLUMPS SEEN ON MICROSCOPICS 08/08/2020 6:31 PM CDT [facility] URINE SPECIMEN OBTAINED BY CLEAN CATCH PROCEDURE / Unknown 08/08/2020 6:12 PM CDT Guille Abebe MD URINE ORDERABLES Final Result [facility] [place] [address], documented in this encounter Visit Diagnoses Diagnosis Urinary tract infection without hematuria, site unspecified- Primary 11 weeks gestation of ([facility]) state, incidental Dyspnea, unspecified type Drug abuse ([facility]) Other, mixed, or unspecified nondependent drug abuse, [...] RN) documented in this encounter Care Teams College Associate Relationship Specialty Start Date End Date Royer Zhang MD [address] [place] [phone] PCP - General FAMILY PRACTICE 04/03/19 documented as of this encounter
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
--- OUTSIDE RECORDS SUMMARY | 2024-10-27 17:27 | XMS_ITS | Encounter Summary ---
Author Organization [facility] Address [address] [place] [address]. [place], [place] [id number] [place] [id number] Care Team Providers Care Marine Engineering Technicians Name Role Phone Royer Zhang MD Primary Care Provider [phone] Reason for Visit * Reason Comments Encounter Details Date Type Department Care Team (Latest Contact Info) Description 12/05/2021 4:23 PM REAL ESTATE ECONOMIST - 12/05/2021 5:35 PM REAL ESTATE ECONOMIST Hospital Encounter [place] [facility] [facility] [place] [place] [address] Dirk Andersen MD [address] [place] [phone] Discharge Disposition: Home or Self Care (Routine [...] on file Legal Sex Female 5:56 PM REAL ESTATE ECONOMIST Gender Identity Not on file Sexual Orientation Not on file COVID-19 Exposure Response Date Recorded In the last 10 days, have yo u been in contact with someone who was confirmed or suspected to have Coronavirus/COVID-19? No / Unsure 12/05/2021 4:26 PM REAL ESTATE ECONOMIST documented as of this encounter Last Filed Vital Signs Vital Sign Reading Time Taken Comments Blood Pressure 118/65 12/05/2021 4:34 PM REAL ESTATE ECONOMIST Pulse 86 12/05/2021 4:34 PM REAL ESTATE ECONOMIST Temperature 36.6 ??C (97.9 ??F) 12/05/2021 4:56 PM CS T Respiratory Rate 20 12/05/2021 4:56 PM REAL ESTATE ECONOMIST Oxygen Saturation - - Inhaled Oxygen Concentration - - Weight - - Height - - Body Mass Index - - documented in this encounter Discharge Instructions * Discharge Instructions* Luda Rome RN - 12/05/2021 5:27 PM REAL ESTATE ECONOMIST Patient Education - The Sixth Month About [...] lot of help breathing, eating, and staying lens grinder rough an intensive care unit. ?? Your baby [...] at home Where can I learn more? [employer] https://familydoctor.org/ouikjpr-yb-axwi-xdkq-wvvfqs-nvzdvcqjb-second-trimester/ [employer] http://kidshealth.org/en/parents/molzeiadl-gmdatvrr-igpje.html?WT.ac=p-woar Office of Women???s Health https://www.womenshealth.gov//eudmp-hjuacmtf-bqn-what/stages- Last Reviewed Date 2020-02-21 Consumer Information Use [...] or approved for treating a specific patient. [employer] and its affiliates disclaim any warranty or liability relating to this information or the use thereof. The use of this information is governed by the Terms of Use, available at https://www.FoxyTasks.com/en/solutions/lexicomp/about/odette Copyright Copyright ?? 2020 [employer] and its affiliates and/or licensors. All rights reserved. Patient Education Alcohol and Drug Use in The Basics Written by the doctors and editors at [employer] What can happen if I drink alcohol [...] process is complete. This topic retrieved from [employer] on: Sep 23, 2021. Topic 54315 Version 13.0 Release: 29.5.2 - C29.340 ?2020??[employer]. and/or its affiliates.??All rights reserved. Consumer Information [...] of this information is governed by the [employer] End User License Agreement, available at https://www.TalentSky/en/solutions/[employer]/about/odette.The use of [employer] content is governed by the [employer] Terms of Use. ??2020 [employer]. All rights reserved. Copyright ?2020??[employer] and/or its affiliates.??All rights reserved. ESTATE ECONOMIST documented in this encounter Medications at Time of Discharge vitamin, low iron, ( VITAMIN WITH IRON) 27-0.8 MG tablet Take 1 tablet by mouth daily. 11/05/2022 documented as of this encounter Plan of Treatment Not on file documented as of this encounter Procedures Procedure Name Priority Date/Time Associated Diagnosis Comments HC CREATININE OTH SOURCE Routine 12/05/2021 4:30 PM REAL ESTATE ECONOMIST ([facility]/HCC) DRUG SCREEN RAPID Routine 12/05/2021 4:3 0 PM REAL ESTATE ECONOMIST ([facility]) HC URINALYSIS AUTO W/MICRO Routine 12/05/2021 4:30 PM REAL ESTATE ECONOMIST ([facility]) documented in this encounter Results * (ABNORMAL) PROTEIN CREAT RATIO URINE (12/05/2021 4:30 PM REAL ESTATE ECONOMIST) PROTEIN RANDOM (U) 17.0(H) <11.9 MG/DL 12/05/2021 5:05 PM REAL ESTATE ECONOMIST [facility] CREATININE (U) 150.0 MG/DL 12/05/2021 5:05 PM REAL ESTATE ECONOMIST [facility] Comment:REFERENCE RANGE NOT ESTABLISHED PROTEIN/CREATINI NE RATIO 0.1 12/05/2021 5:05 PM [facility] Comment:CALCULATED VALUE. [facility]ENCE RANGE HAS NOT BEEN ESTABLISHED. URINE SPECIMEN / Unknown 12/05/2021 4:30 PM REAL ESTATE ECONOMIST us Dirk Andersen MD URINE ORDERABLES Final Result [facility] [address] [place] [address], * (ABNORMAL) URINALYSIS (12/05/2021 4:30 PM REAL ESTATE ECONOMIST) COLOR (U) YELLOW 12/05/2021 5:02 PM [facility] TRANSPARENCY CLEAR 12/05/2021 5:02 PM [facility] SPECIFIC GRAVITY (U) 1.030(H) 1.000 - 1.025 12/05/2021 5:02 PM [facility] Comment:EQUAL TO OR GREATER THAN U PH 6.0 5.0 - 8.0 12/05/2021 5:02 PM [facility] LEUKOCYTES (U) NEGATIVE NEGATIVE 12/05/2021 5:02 PM [facility] NITRITES NEGATIVE NEGATIVE 12/05/2021 5:02 PM [facility] PROTEIN (U) NEGATIVE NEGATIVE 12/05/2021 5:02 PM [facility] URINE GLUCOSE NEGATIVE NEGATIVE 12/05/2021 5:02 PM [facility] KETONES MG/DL (U) NEGATIVE NEGATIVE 12/05/2021 5:02 PM [facility] UROBILINOGEN 0.2 <1.0 EU/DL 12/05/2021 5:02 PM [facility] BILIRUBIN (U) NEGATIVE NEGATIVE 12/05/2021 5:02 PM [facility] BLOOD (U) NEGATIVE NEGATIVE 12/05/2021 5:02 PM [facility] WBC/HPF 0-5 0 - 5 /HPF 12/05/2021 5:02 PM REAL ESTATE ECONOMIST [facility] RBC/HPF 0-5 0 - 5 /HPF 12/05/2021 5:02 PM REAL ESTATE ECONOMIST [facility] EPI/HPF FEW /LPF 12/05/2021 5:02 PM REAL ESTATE ECONOMIST [facility] BACTERIA (U) 2+ /HPF 12/05/2021 5:02 PM REAL ESTATE ECONOMIST [facility] MUCUS PRESENT 12/05/2021 5:02 PM REAL ESTATE ECONOMIST [facility] URINE SPECIMEN OBTAINED BY CLEAN CATCH PROCEDURE / Unknown 12/05/2021 4:30 PM REAL ESTATE ECONOMIST us Dirk Andersen MD URINE ORDERABLES Final Result [facility] [email or web address] [place] [id number], * DRUG SCREEN RAPID (12/05/2021 4:30 PM REAL ESTATE ECONOMIST) CANNABINOIDS SCREEN (U) NEGATIVE NEGATIVE 12/05/2021 5:03 PM REAL ESTATE ECONOMIST [facility] PHENCYCLIDINE PCP (U) NEGATIVE NEGATIVE 12/05/2021 5:03 PM REAL ESTATE ECONOMIST [facility] COCAINE METABOLITES (U) NEGATIVE NEGATIVE 12/05/2021 5:03 PM REAL ESTATE ECONOMIST [facility] METHAMPHETAMINE (U) NEGATIVE NEGATIVE 12/05/2021 5:03 PM REAL ESTATE ECONOMIST [facility] OPIATE SCREEN (U) NEGATIVE NEGATIVE 022 5:03 PM REAL ESTATE ECONOMIST [facility] AMPHETAMINE (U) NEGATIVE NEGATIVE 5:03 PM REAL ESTATE ECONOMIST [facility] BENZODIAZEPINES SCREEN (U) NEGATIVE NEGATIVE 12/05/2021 5:03 PM REAL ESTATE ECONOMIST [facility] TRICYCLIC ANTIDEPRESSANT SCREEN (U) NEGATIVE NEGATIVE 12/05/2021 5:03 PM REAL ESTATE ECONOMIST [facility] METHADONE (U) NEGATIVE NEGATIVE 12/05/2021 5:03 PM REAL ESTATE ECONOMIST [facility] BARBITURATES SCREEN (U) NEGATIVE NEGATIVE 12/05/2021 5:03 PM REAL ESTATE ECONOMIST [facility] OXYCODONE SCREEN (U) NEGATIVE NEGATIVE 12/05/2021 5:03 PM REAL ESTATE ECONOMIST [facility] PROPOXYPHENE SCREEN (U) NEGATIVE NEGATIVE 12/05/2021 5:03 PM REAL ESTATE ECONOMIST [facility] URINE TOX COMMENT THIS TEST METHODOLOGY IS DESIGNED AND OFFERED A RAPID TURNAROUND, QUALITATIVE SCREENING PROCEDURE TO AID IN THE IMMEDIATE MEDICAL ASSESSMENT OF PATIENTS SUSPECTED OF SUBSTANCE ABUSE. 12/05/2021 4:30 PM REAL ESTATE ECONOMIST [facility] Comment: CLINICAL CONSIDERATION AND PROFESSIONAL JUDGMENT MUST BE APPLIED TO ANY DRUG OF ABUSE TEST RESULT, BOTH POSITIVE AND NEGATIVE. CONFIRMATORY QUANTITATIVE RESULTS ARE AVAILABLE THROUGH OUR REFERENCE LAB[facility]ORY. URINE SPECIMEN / Unknown 12/05/2021 4:30 PM REAL ESTATE ECONOMIST us Dirk Andersen MD URINE ORDERABLES Final Result [facility] [address] [place] [address], documented in this encounter Visit Diagnoses Diagnosis (HHS/HCC)- Primary state, incidental documented in this encounter Care Teams Marine Engineering Technicians Relationship Specialty Start Date End Date Royer Zhang MD [address] [place] [phone] PCP - General FAMILY PRACTICE 04/03/19 documented as of this encounter
== END 2024-10-20 08:22 | disposition left against medical advice (07) ==
PROVIDERS: PCP Physician Assistant
DX: R51.9 Headache, unspecified (principal)
CPT/HCPCS: 99199

== ENCOUNTER 2024-10-26 14:59 | Emergency (ER) | payer SELFPAY ==
[2024-10-26 15:11] VITALS: BP 114/79; PULSE 93; RESP 16; TEMP 36.8; O2SAT 94
--- NOTE | 2024-10-26 15:34 | ED_ITS ---
HPI - URI/Sore Throat General Chief Complaint: Upper Respiratory Infection Stated Complaint: Chest congestion, fever, cough , nausea Time Seen by Provider: 10/26/24 15:25 Source: patient, RN notes reviewed and old records reviewed Mode of arrival: ambulatory Limitations: no limitations History of Present Illness HPI Narrative: patient presents with 10 days of chest congestion, fever, cough, nausea. She states she has been taking [id number] medications with poor relief. Says that cough is causing her headache and sore throat. She denies any shortness breath. Related Data Home Medications ?Medication ?Instructions ?Recorded ?Confirmed ?Last Taken ?Type sertraline 100 mg tablet 100 mg PO DAILY 07/12/23 10/26/24 Unknown History bupropion HCl 150 mg 24 hr tablet, 150 mg PO .QD 10/26/24 10/26/24 Unknown History extended release Allergies Allergy/AdvReac Type Severity Reaction Status Date / Time No Known Allergies Allergy Verified 10/26/24 15:46 Review of Systems Review of Systems: All systems reviewed & are unremarkable except as noted in HPI and below Constitutional: Constitutional: Reports no additional constitutional complaints, Reports headache(s) and Reports lethargy ENT: Reports system reviewed and no additional complaints, except as documented, Reports nasal congestion, Reports nasal discharge and Reports sore throat Cardiovascular: Cardiovascular: Reports no additional cardiovascular complaints Respiratory: Respiratory: Reports no additional respiratory complaints, Reports chest congestion, Reports cough and Reports excessive phlegm production Gastrointestinal: Gastrointestinal: Reports no additional gastrointestinal complaints [facility] Past Medical History Medical History (Updated 10/26/24 @ 15:40 by Licha Go APRN) Methamphetamine abuse Tobacco abuse Surgical History Surgical History History of section Family History Family History Grandparent Diabetes mellitus Hypertension Father Diabetes mellitus Hypertension Social History Social History Smoking status: Current every day smoker Tobacco type: cigarettes Second hand tobacco smoke exposure: Yes Substance use: former Gender identity (if verbalized by the patient): Female Spiritual care concerns: No Comments At the time of my signature, I reviewed and agree with the nursing past medical, surgical, social, and family history. There is no relevant family history pertinent to the patient complaint. Exam Const: General: cooperative, no acute distress, alert and awake Orientation/consciousness: oriented to person, oriented to place and oriented to time HENMT: Head: normal to inspection Ears: TM abnormal dull bilateral Mouth: Yes moist mucous membranes Resp: Effort & Inspection: normal respiratory effort and able to speak in complete sentences Auscultation: clear to auscultation bilaterally, crackles on the left in the upper lung cuevas, no rales, no rhonchi and no wheezes Cardio: Palpation: normal PMI Rate: regular rate Rhythm: regular rhythm Heart sounds: S1 normal heart sound present and S2 normal heart sound present Neuro: General: oriented to person, oriented to place and oriented to time Cranial nerves: Yes CN's II-XII intact bilaterally Psych: Appearance: grossly normal Thought process: Normal thought process present Insight: Good insight present (Psych) Judgement: Good judgement present (Psych) Course Course Level of Care: Express Care Visit Vital Signs Vital signs: Vital Signs Temperature 98.2 F 10/26/24 15:11 Pulse Rate 93 10/26/24 15:11 Respiratory Rate 16 10/26/24 15:11 Blood Pressure 114/79 10/26/24 15:11 Pulse Oximetry 94 10/26/24 15:11 Temperature 98.2 F 10/26/24 15:11 Pulse Rate 93 10/26/24 15:11 Respiratory Rate 16 10/26/24 15:11 Blood Pressure 114/79 10/26/24 15:11 Pulse Oximetry 94 10/26/24 15:11 Reviewed MDM - URI/Sore Throat MDM Narrative Medical decision making narrative: History and exam consistent with atypical pneumonia that is prevalent within the community right now. Patient is nontoxic appearing and in no distress. Discharge instructions reviewed with patient, as well as provided in writing per nursing staff. The instructions also include specific and strict return/GO TO THE ER as well as f/u information. All questions have been answered, and the patient deny any further questions with discharge and discharge plan. Some parts of this dictation were generated by voice recognition software and may contain typographical and/or grammatical inaccuracies. Differential Diagnosis Differential diagnosis: Likely upper respiratory infection, viral infection and influenza Medical Records Attestation: I reviewed the patient's medical records. Lab Data Attestation: I reviewed the patient's lab results. Discharge Plan Discharge Clinical Impression: Atypical pneumonia Patient Disposition: Home, Self-Care Condition: Stable Instructions: Antibiotic Form, Community Acquired Pneumonia (ED) Additional Instructions: take medication as prescribed. Follow with primary care provider. Emergency department for new or worsening symptoms Patient Language: [place] Prescriptions: New azithromycin 250 mg tablet See Rx Instructions .ROUTE .COMPLEX Qty: 6 0RF Rx Instructions: For 250 mg dose pack: take 500 mg today (day 1), then 250 mg for 4 days (days 2-5) albuterol sulfate [Ventolin HFA] 90 mcg/actuation HFA aerosol inhaler 2 puff inhalation QID PRN (Reason: shortness of breath or wheezing) Qty: 8.5 0RF No Action sertraline 100 mg tablet 100 mg PO DAILY cyanocobalamin (vitamin B-12) 1,000 mcg tablet 1,000 mcg PO DAILY gabapentin 100 mg capsule 100 mg PO HS Follow-up/Referrals: UNKNOWN,DOCTOR [Primary Care Provider] - Stand Alone Forms: Work/School Release IP Time of Disposition: 15:41
== END 2024-10-26 15:50 | disposition home or self-care (01) ==
PROVIDERS: Emergency Provider Nurse Practitioner Family
DX: J18.9 Pneumonia, unspecified organism (principal); F17.210 Nicotine dependence, cigarettes, uncomplicated
CPT/HCPCS: 99213; G0463